=== PATIENT | male | born 1930 | race Caucasian/White ===

== ENCOUNTER → 2017-04-01 | Outpatient (CLI) | payer MEDICARE, BC ==
[~2017-04-01] MED LIST: ALPR0.5T99 PO; ASPI81TA82 PO; DUONI NEB; GLIP5 PO; IRBE1TAB37 PO; MIRA33502 PO; NADO20TA PO; NEBUMIS6 INH; OMEP20CA5 PO; PROC60TA PO; ROSU40 PO
[2017-04-01 14:26] LABS: MEAN CORPUSCULAR HGB CONC 36.2 % (32.0-36.0)
[2017-04-01 15:47] LABS: AUTOMATED NEUTROPHIL # 8.5 TH/MM3 (1.8-7.7); BASOPHIL % 0.3 % (0.0-2.0); EOSINOPHIL # 0.1 TH/MM3 (0-0.4); EOSINOPHIL % 0.5 % (0.0-4.0); HEMATOCRIT 31.3 % (39.0-51.0); LYMPH % 8.9 % (9.0-44.0); LYMPHOCYTE # 0.9 TH/MM3 (1.0-4.8); MEAN CELL VOLUME 87.4 FL (80.0-100.0); MEAN CORPUSCULAR HEMOGLOBIN 31.7 PG (27.0-34.0); MONO % 8.4 % (0.0-8.0); NEUT % 81.9 % (16.0-70.0); PLATELET COUNT 245 TH/MM3 (150-450); RED BLOOD COUNT 3.58 MIL/MM3 (4.50-5.90); WHITE BLOOD COUNT 10.3 TH/MM3 (4.0-11.0)
[2017-04-01 15:59] LABS: HEMO FLAGS DIFF FINAL
[2017-04-01 16:18] LABS: ALKALINE PHOSPHATASE 105 U/L (45-117); ALT (GPT) 22 U/L (12-78); ANION GAP 11 MEQ/L (5-15); AST (GOT) 25 U/L (15-37); BLOOD UREA NITROGEN 34 MG/DL (7-18); CHLORIDE 90 MEQ/L (98-107); GLOMERULAR FILTRATION RATE 47 ML/MIN (>89); TOTAL BILIRUBIN ADULT 0.4 MG/DL (0.2-1.0)
[2017-04-01 16:23] LABS: SODIUM (NA) 121 MEQ/L (136-145)
== END ==
LOC: PLAB 14:20
PROVIDERS: ATTEND Family Medicine
DX: D64.9 Anemia, unspecified (principal); R53.83 Other fatigue; I10 Essential (primary) hypertension
CPT/HCPCS: 36415; 80053; 85025

== ENCOUNTER → 2017-04-09 | Outpatient (CLI) | payer MEDICARE, BC ==
[2017-04-09 08:35] LABS: POTASSIUM 4.1 MEQ/L (3.5-5.1)
[2017-04-09 08:37] LABS: BICARBONATE 21.9 MEQ/L (21.0-32.0)
== END ==
LOC: PLAB 07:19
PROVIDERS: ATTEND Family Medicine
DX: E78.1 Pure hyperglyceridemia (principal)
CPT/HCPCS: 36415; 80048

== ENCOUNTER → 2017-07-29 | Outpatient (CLI) | payer MEDICARE, BC ==
[2017-07-29 13:12] LABS: AUTOMATED NEUTROPHIL # 5.1 TH/MM3 (1.8-7.7); BASOPHIL % 0.5 % (0.0-2.0); EOSINOPHIL # 0.2 TH/MM3 (0-0.4); EOSINOPHIL % 2.7 % (0.0-4.0); HEMATOCRIT 31.1 % (39.0-51.0); HEMO FLAGS DIFF FINAL; LYMPH % 15.6 % (9.0-44.0); LYMPHOCYTE # 1.1 TH/MM3 (1.0-4.8); MEAN CELL VOLUME 89.8 FL (80.0-100.0); MEAN CORPUSCULAR HEMOGLOBIN 31.4 PG (27.0-34.0); MONO % 7.9 % (0.0-8.0); NEUT % 73.3 % (16.0-70.0); PLATELET COUNT 281 TH/MM3 (150-450); RED BLOOD COUNT 3.47 MIL/MM3 (4.50-5.90); RED CELL DISTRIBUTION WIDTH 13.9 % (11.6-17.2)
[2017-07-29 13:37] LABS: BICARBONATE 24.5 MEQ/L (21.0-32.0); POTASSIUM 4.2 MEQ/L (3.5-5.1)
== END ==
LOC: PLAB 08:28
PROVIDERS: ATTEND Internal Medicine Gastroenterology
DX: K59.00 Constipation, unspecified (principal); D64.9 Anemia, unspecified
CPT/HCPCS: 36415; 80048; 84443; 85025

== ENCOUNTER 2017-08-31 15:54 | Emergency (ER) | payer MEDICARE, BC ==
[~2017-08-31] VITALS: Ht 165.1 cm; Wt 78.7 kg
[2017-08-31 15:56] VITALS: BP 188/88; PULSE 87; RESP 18; TEMP 98.1; O2SAT 96
[2017-08-31] MEDS ORDERED: ROSU5 PO (16:14)
[2017-08-31] MEDS ORDERED: GLIP5TAB8 PO (16:14)
[2017-08-31] MEDS ORDERED: FURO20TA PO (16:14)
[2017-08-31] MEDS ORDERED: IRBE75TA24 PO (16:14)
[2017-08-31] MEDS ORDERED: NADO20TA PO (16:14)
[2017-08-31] MEDS ORDERED: HYDR12.56 PO (16:14)
[2017-08-31] MEDS ORDERED: FINA5TAB2 PO (16:14)
[2017-08-31] MEDS ORDERED: PRIL20TA2 PO (16:14)
[2017-08-31] MEDS ORDERED: ALPR.5 PO (16:14)
[2017-08-31] MEDS ORDERED: NIFE10 PO (16:14)
[2017-08-31] MEDS ORDERED: SPIRCAP INH (16:14)
[2017-08-31] MEDS ORDERED: CEPH-460 PO (16:18)
[2017-08-31] MEDS ORDERED: BACT800T5 PO (16:18)
--- NOTE | 2017-08-31 16:19 | PD ---
HPI Chief Complaint: Skin Problem Time Seen by Provider: 16:11 Travel History International Travel<30 days: No Contact w/Intl Traveler<30days: No Traveled to known affect area: No History of Present Illness HPI 86-year-old male here for evaluation of pain and redness to his right forearm at the site of a previous skin tear. He reports the original injury happened about 3 weeks ago. The area heals on its own. Over the last several days he's noticed increased tenderness and redness at the site. He denies fever or chills. He has no other complaint. Symptom severity is mild. No alleviating factors. PFSH Past Medical History Arthritis: Yes Asthma: No Autoimmune Disease: No Blood Disorders: No Anxiety: Yes Heart Rhythm Problems: No Cancer: Yes (SKIN CA) Cardiovascular Problems: Yes High Cholesterol: Yes Chest Pain: No Congestive Heart Failure: No COPD: Yes ("A DROP OF COPD"PER PATIENT) Cerebrovascular Accident: No Diabetes: Yes Patient Takes Glucophage: Yes Endocrine: Yes Gastrointestinal Disorders: Yes (WIDENING OF ESOPHAGUS -DR COLLAZO) GERD: Yes Genitourinary: No Headaches: No Hepatitis: No Hiatal Hernia: Yes Hypertension: Yes Immune Disorder: No Kidney Stones: No Musculoskeletal: Yes Neurologic: No Psychiatric: No Reproductive: No Respiratory: Yes Migraines: No Myocardial Infarction: No Renal Failure: No Seizures: No Sleep Apnea: Yes (USES CPAP AND HOME O2) Thyroid Disease: No Ulcer: No Tetanus Vaccination: Unknown Influenza Vaccination: Yes Past Surgical History Abdominal Surgery: Yes (HERNIA REPAIR 02/17/2014) AICD: No Appendectomy: No Arteriovenous Shunt: No Cardiac Surgery: Yes (CAGB 2006) Cholecystectomy: Yes (02/17/2014) Ear Surgery: No Endocrine Surgery: No Eye Surgery: No Genitourinary Surgery: No Gynecologic Surgery: No Insulin Pump: No Joint Replacement: No Oral Surgery: No Pacemaker: No Thoracic Surgery: Yes Other Surgery: Yes (LAST GALLBLADDER) Social History Alcohol Use: No (4 SHOTS DAILY (DENIES)) Tobacco Use: No Substance Use: No Allergies-Medications (Allergen,Severity, Reaction): Coded Allergies: iodine (Unverified Allergy, Severe, 08/31/17) levofloxacin (Unverified Allergy, Severe, Anaphylaxis, 08/31/17) potassium iodide (Unverified Allergy, Severe, 08/31/17) povidone-iodine (Unverified Allergy, Severe, 08/31/17) sodium iodide (Unverified Allergy, Severe, 08/31/17) sodium iodide (Unverified Allergy, Severe, 08/31/17) Reported Meds & Prescriptions Reported Meds & Active Scripts Active Keflex (Cephalexin) 500 Mg Capsule 500 Mg PO Q6H 10 Days Bactrim DS (Sulfamethoxazole-Trimethoprim) 800-160 Mg Tab 1 Tab PO BID Reported Xanax (Alprazolam) 0.5 Mg Tab 0.5 Mg PO Q8H PRN Furosemide 20 Mg Tab 20 Mg PO THREE TIMES WEEK Spiriva Handihaler (Tiotropium Inh) 18 Mcg Cap 18 Mcg INH DAILY 1 capsule = 18 mcg Crestor (Rosuvastatin Calcium) 5 Mg Tab 5 Mg PO DAILY Avapro (Irbesartan) 75 Mg Tab 75 Mg PO BID Glipizide 5 Mg Tab 5 Mg PO DAILY Take 30 minutes before a meal Nadolol 20 Mg Tab 20 Mg PO DAILY Finasteride 5 Mg Tab 5 Mg PO DAILY Do not crush. Hydrochlorothiazide 12.5 Mg Tab 12.5 Mg PO DAILY Procardia (Nifedipine) 10 Mg Cap 60 Mg PO DAILY Prilosec (Omeprazole Magnesium) 20 Mg Tab 1 Tab PO DAILY Review of Systems Except as stated in HPI: all other systems reviewed are Neg General / Constitutional: No: Fever Eyes: No: Visual changes HENT: No: Headaches Cardiovascular: No: Chest Pain or Discomfort Respiratory: No: Shortness of Breath Gastrointestinal: No: Abdominal Pain Genitourinary: No: Dysuria Physical Exam Narrative GENERAL: Alert well-appearing male in no acute distress SKIN: Focused skin assessment warm/dry. 5 x 4 cm area of mild erythema to the forearm at the site of a well-healed skin tear. No induration, fluctuance, or open sores. HEAD: Atraumatic. Normocephalic. ENT: No nasal bleeding or discharge. Mucous membranes pink and moist. NECK: Trachea midline. No JVD. CARDIOVASCULAR: Regular rate and rhythm. No murmur appreciated. RESPIRATORY: No accessory muscle use. Clear to auscultation. Breath sounds equal bilaterally. GASTROINTESTINAL: Abdomen soft, non-tender, nondistended. Hepatic and splenic margins not palpable. MUSCULOSKELETAL: No obvious deformities. No clubbing. No cyanosis. No edema. NEUROLOGICAL: Awake and alert. No obvious cranial nerve deficits. Motor grossly within normal limits. Normal speech. PSYCHIATRIC: Appropriate mood and affect; insight and judgment normal. Data Data Last Documented VS Vital Signs Date Time Temp Pulse Resp B/P (MAP) Pulse Ox O2 Delivery O2 Flow Rate FiO2 08/31/17 15:56 98.1 87 18 188/88 (121) 96 MDM Medical Decision Making Medical Screen Exam Complete: Yes Emergency Medical Condition: Yes Differential Diagnosis CELLULITIS, ABSCESS, LYMPHANGITIS Narrative Course 86-year-old male here for evaluation of pain and redness to his right forearm at the site of a previous skin tear. He reports the original injury happened about 3 weeks ago. The area heals on its own. Over the last several days he's noticed increased tenderness and redness at the site. On exam he has very mild case of cellulitis to the right forearm. He denies fever or chills. His vital signs are stable. He is nontoxic. He will be treated with oral antibiotics and instructed to follow up with his PCP. He agrees to this plan Diagnosis Primary Impression: Cellulitis Qualified Codes: L03.113 - Cellulitis of right upper limb Referrals: Primary Care Physician Additional Instructions: Take the antibiotics as prescribed. Take Tylenol as needed for pain. Follow-up with her doctor. Return to the emergency department if he developed new or worsening symptoms Scripts Cephalexin (Keflex) 500 Mg Capsule 500 MG PO Q6H for Infection for 10 Days, #40 CAP 0 Refills Prov: Alondra Reyes 08/31/17 Sulfamethoxazole-Trimethoprim (Bactrim DS) 800-160 Mg Tab 1 TAB PO BID for Infection, #20 TAB 0 Refills Prov: Alondra Reyes 08/31/17 Disposition: 01 DISCHARGE HOME Condition: Stable Alondra Reyes Aug 31, 2017 16:19
== END 2017-08-31 16:33 | disposition home or self-care (01) ==
LOC: PHEFT 15:54
DX: L03.113 Cellulitis of right upper limb (principal); E11.9 Type 2 diabetes mellitus without complications; I10 Essential (primary) hypertension; E78.00 Pure hypercholesterolemia, unspecified; G47.30 Sleep apnea, unspecified; Z79.84 Long term (current) use of oral hypoglycemic drugs; Z87.39 Personal history of other diseases of the musculoskeletal system and connective tissue; Z86.59 Personal history of other mental and behavioral disorders; Z85.828 Personal history of other malignant neoplasm of skin; Z86.79 Personal history of other diseases of the circulatory system; Z87.09 Personal history of other diseases of the respiratory system; Z87.19 Personal history of other diseases of the digestive system
CPT/HCPCS: 99284

== ENCOUNTER → 2017-09-08 | Outpatient (CLI) | payer MEDICARE, BC ==
[~2017-09-08] MED LIST changes: +ALPR.5 PO; -ALPR0.5T99 PO; -ASPI81TA82 PO; +BACT800T5 PO; +CEPH-460 PO; -DUONI NEB; +FINA5TAB2 PO; +FURO20TA PO; -GLIP5 PO; +GLIP5TAB8 PO; +HYDR12.56 PO; -IRBE1TAB37 PO; +IRBE75TA24 PO; -MIRA33502 PO; -NEBUMIS6 INH; +NIFE10 PO; -OMEP20CA5 PO; +PRIL20TA2 PO; -PROC60TA PO; -ROSU40 PO; +ROSU5 PO; +SPIRCAP INH
[2017-09-08 13:34] LABS: AUTOMATED NEUTROPHIL # 5.1 TH/MM3 (1.8-7.7); BASOPHIL % 0.7 % (0.0-2.0); EOSINOPHIL # 0.1 TH/MM3 (0-0.4); EOSINOPHIL % 1.7 % (0.0-4.0); HEMATOCRIT 31.3 % (39.0-51.0); HEMO FLAGS DIFF FINAL; LYMPH % 16.4 % (9.0-44.0); LYMPHOCYTE # 1.1 TH/MM3 (1.0-4.8); MEAN CELL VOLUME 90.9 FL (80.0-100.0); MEAN CORPUSCULAR HEMOGLOBIN 30.7 PG (27.0-34.0); MEAN CORPUSCULAR HGB CONC 33.8 % (32.0-36.0); MONO % 7.5 % (0.0-8.0); NEUT % 73.7 % (16.0-70.0); PLATELET COUNT 264 TH/MM3 (150-450); RED BLOOD COUNT 3.44 MIL/MM3 (4.50-5.90); RED CELL DISTRIBUTION WIDTH 13.6 % (11.6-17.2)
[2017-09-08 15:28] LABS: ALKALINE PHOSPHATASE 90 U/L (45-117); ALT (GPT) 25 U/L (12-78); AST (GOT) 19 U/L (15-37); BLOOD UREA NITROGEN 33 MG/DL (7-18); GLOMERULAR FILTRATION RATE 35 ML/MIN (>89); GLUCOSE,FASTING 153 MG/DL (74-99); POTASSIUM 4.1 MEQ/L (3.5-5.1); SODIUM (NA) 135 MEQ/L (136-145); TOTAL BILIRUBIN ADULT 0.4 MG/DL (0.2-1.0)
[2017-09-08 15:29] LABS: ANION GAP 9 MEQ/L (5-15); BICARBONATE 23.2 MEQ/L (21.0-32.0); CHLORIDE 103 MEQ/L (98-107); FREE T4 1.22 NG/DL (0.76-1.46); HDL CHOLESTEROL 38.9 MG/DL (40.0-60.0); LDL CHOLESTEROL 75 MG/DL (0-99)
[2017-09-08 17:25] LABS: HEMOGLOBIN A1a 0.9 %; HEMOGLOBIN A1b 1.9 %; HEMOGLOBIN Ao 82.7 %; HEMOGLOBIN LA1C 2.5 %; HEMOGLOBIN P3 6.2 %
== END ==
LOC: PLAB 08:10
PROVIDERS: ATTEND Family Medicine
DX: E78.5 Hyperlipidemia, unspecified (principal); E11.21 Type 2 diabetes mellitus with diabetic nephropathy; R94.6 Abnormal results of thyroid function studies; D64.9 Anemia, unspecified
CPT/HCPCS: 36415; 80053; 80061; 82607; 82746; 83036; 84439; 84443; 85025

== ENCOUNTER → 2017-12-08 | Outpatient (CLI) | payer MEDICARE, BC ==
[2017-12-08 09:51] LABS: AUTOMATED NEUTROPHIL # 4.4 TH/MM3 (1.8-7.7); BASOPHIL # 0.1 TH/MM3 (0-0.2); BASOPHIL % 0.9 % (0.0-2.0); EOSINOPHIL # 0.3 TH/MM3 (0-0.4); EOSINOPHIL % 4.1 % (0.0-4.0); HEMATOCRIT 26.4 % (39.0-51.0); HEMOGLOBIN 9.5 GM/DL (13.0-17.0); LYMPH % 18.5 % (9.0-44.0); LYMPHOCYTE # 1.2 TH/MM3 (1.0-4.8); MEAN CELL VOLUME 90.9 FL (80.0-100.0); MEAN CORPUSCULAR HEMOGLOBIN 32.7 PG (27.0-34.0); MEAN CORPUSCULAR HGB CONC 35.9 % (32.0-36.0); MEAN PLATELET VOLUME 8.5 FL (7.0-11.0); MONO % 10.5 % (0.0-8.0); MONOCYTE # 0.7 TH/MM3 (0-0.9); PLATELET COUNT 219 TH/MM3 (150-450); RED CELL DISTRIBUTION WIDTH 13.2 % (11.6-17.2); WHITE BLOOD COUNT 6.7 TH/MM3 (4.0-11.0)
[2017-12-08 10:15] LABS: ALBUMIN 3.1 GM/DL (3.4-5.0); ALT (GPT) 19 U/L (12-78); AST (GOT) 18 U/L (15-37); BICARBONATE 22.4 MEQ/L (21.0-32.0); BLOOD UREA NITROGEN 43 MG/DL (7-18); CHLORIDE 98 MEQ/L (98-107); CHOLESTEROL 119 MG/DL (120-200); CREATININE 2.12 MG/DL (0.60-1.30); GLOMERULAR FILTRATION RATE 30 ML/MIN (>89); GLUCOSE,FASTING 130 MG/DL (74-99); SODIUM (NA) 131 MEQ/L (136-145)
[2017-12-08 10:40] LABS: ALKALINE PHOSPHATASE 105 U/L (45-117); CHOLESTEROL/ HDL RATIO 3.23 RATIO; FOLATE 10.1 NG/ML (3.1-17.5); FREE T4 1.29 NG/DL (0.76-1.46); HDL CHOLESTEROL 36.8 MG/DL (40.0-60.0); LDL CHOLESTEROL 64 MG/DL (0-99); TOTAL BILIRUBIN ADULT 0.6 MG/DL (0.2-1.0); TOTAL PROTEIN 6.3 GM/DL (6.4-8.2); TRIGLYCERIDES 90 MG/DL (42-150)
[2017-12-08 16:49] LABS: HEMOGLOBIN A1C 6.7 % (4.3-6.0)
== END ==
LOC: PLAB 07:24
PROVIDERS: ATTEND Family Medicine
DX: E78.5 Hyperlipidemia, unspecified (principal); E11.21 Type 2 diabetes mellitus with diabetic nephropathy; R94.6 Abnormal results of thyroid function studies; D64.9 Anemia, unspecified
CPT/HCPCS: 36415; 80053; 80061; 82607; 82746; 83036; 84439; 84443; 85025

== ENCOUNTER → 2018-01-07 | Outpatient (CLI) | payer MEDICARE, BC ==
[2018-01-07 13:58] LABS: HEMATOCRIT 30.4 % (39.0-51.0); HEMOGLOBIN 10.6 GM/DL (13.0-17.0); MEAN CELL VOLUME 92.1 FL (80.0-100.0); MEAN CORPUSCULAR HEMOGLOBIN 32.2 PG (27.0-34.0); MEAN PLATELET VOLUME 8.8 FL (7.0-11.0); PLATELET COUNT 240 TH/MM3 (150-450); WHITE BLOOD COUNT 7.9 TH/MM3 (4.0-11.0)
[2018-01-07 14:22] LABS: BICARBONATE 21.9 MEQ/L (21.0-32.0); BLOOD UREA NITROGEN 47 MG/DL (7-18); CHLORIDE 103 MEQ/L (98-107); CREATININE 2.22 MG/DL (0.60-1.30); GLOMERULAR FILTRATION RATE 28 ML/MIN (>89); GLUCOSE,RANDOM 144 MG/DL (74-106); SODIUM (NA) 137 MEQ/L (136-145)
[2018-01-07 14:23] LABS: % SATURATION IRON PROFILE 22.7 % (20-50); IRON (FE) 75 MCG/DL (65-175); TOTAL IRON BINDING CAPACITY 330 MCG/DL (250-450)
== END ==
LOC: PLAB 10:38
PROVIDERS: ATTEND Family Medicine
DX: N18.9 Chronic kidney disease, unspecified (principal)
CPT/HCPCS: 36415; 80048; 82668; 83540; 83550; 85027

== ENCOUNTER → 2018-02-26 | Outpatient (CLI) | payer MEDICARE, BC ==
[~2018-02-26] MED LIST changes: +FURO40TA PO; +HYDR-3799 PO; +NADO1TAB17 PO; +TERA5CAP3 PO
[2018-02-26 14:47] LABS: AUTOMATED NEUTROPHIL # 6.8 TH/MM3 (1.8-7.7); BASOPHIL % 0.4 % (0.0-2.0); EOSINOPHIL # 0.1 TH/MM3 (0-0.4); EOSINOPHIL % 1.3 % (0.0-4.0); HEMATOCRIT 27.9 % (39.0-51.0); HEMOGLOBIN 9.8 GM/DL (13.0-17.0); LYMPH % 8.6 % (9.0-44.0); LYMPHOCYTE # 0.7 TH/MM3 (1.0-4.8); MEAN CELL VOLUME 91.2 FL (80.0-100.0); MEAN CORPUSCULAR HEMOGLOBIN 32.1 PG (27.0-34.0); MEAN CORPUSCULAR HGB CONC 35.2 % (32.0-36.0); MONO % 8.9 % (0.0-8.0); MONOCYTE # 0.7 TH/MM3 (0-0.9); NEUT % 80.8 % (16.0-70.0); PLATELET COUNT 399 TH/MM3 (150-450); RED BLOOD COUNT 3.05 MIL/MM3 (4.50-5.90); RED CELL DISTRIBUTION WIDTH 13.4 % (11.6-17.2); WHITE BLOOD COUNT 8.4 TH/MM3 (4.0-11.0)
[2018-02-26 14:48] LABS: HEMOGLOBIN A1C 7.3 % (4.3-6.0)
[2018-02-26 14:54] LABS: ALBUMIN 2.6 GM/DL (3.4-5.0); AST (GOT) 13 U/L (15-37); BICARBONATE 20.1 MEQ/L (21.0-32.0); BLOOD UREA NITROGEN 43 MG/DL (7-18); CALCIUM 8.7 MG/DL (8.5-10.1); CHLORIDE 104 MEQ/L (98-107); GLOMERULAR FILTRATION RATE 25 ML/MIN (>89); GLUCOSE,FASTING 163 MG/DL (74-99); SODIUM (NA) 134 MEQ/L (136-145)
[2018-02-26 14:55] LABS: CHOLESTEROL 107 MG/DL (120-200)
[2018-02-26 15:04] LABS: ALKALINE PHOSPHATASE 91 U/L (45-117); ALT (GPT) 24 U/L (12-78); FREE T4 1.35 NG/DL (0.76-1.46); HDL CHOLESTEROL 34.5 MG/DL (40.0-60.0); LDL CHOLESTEROL 51 MG/DL (0-99); TOTAL BILIRUBIN ADULT 0.3 MG/DL (0.2-1.0); TOTAL PROTEIN 6.7 GM/DL (6.4-8.2); TRIGLYCERIDES 108 MG/DL (42-150)
== END ==
LOC: PLAB 08:54
PROVIDERS: ATTEND Family Medicine
DX: E78.5 Hyperlipidemia, unspecified (principal); E11.40 Type 2 diabetes mellitus with diabetic neuropathy, unspecified; R94.6 Abnormal results of thyroid function studies
CPT/HCPCS: 36415; 80053; 80061; 83036; 84439; 84443; 85025

== ENCOUNTER 2018-02-28 12:52 | Observation (INO) | payer MEDICARE, BC ==
[~2018-02-28] VITALS: Ht 177.8 cm; Wt 75.0 kg
[2018-02-28] VITALS (13 sets, daily range): BP systolic 164–196; BP diastolic 68–87; PULSE 57–78; RESP 16–20; TEMP 98–98.1; O2SAT 96–98
[~2018-02-28 12:52] MED LIST changes: -FURO40TA PO; -HYDR-3799 PO; -NADO1TAB17 PO; -TERA5CAP3 PO
[2018-02-28] MEDS ORDERED: SODIUM CHLORIDE 0.9% FLUSH 10 ML FLUSH IVF PRN (13:15)
[2018-02-28] MEDS ORDERED: cloNIDine HCL 0.2 MG TAB PO ONE (13:15)
--- NOTE | 2018-02-28 13:19 | PD ---
HPI Chief Complaint: Chest Pain Time Seen by Provider: 13:06 Travel History International Travel<30 days: No Contact w/Intl Traveler<30days: No History of Present Illness HPI Patient presents with complaints of intermittent chest heaviness over the last 4 days. Denies chest pain. Denies any symptoms now. 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 Reports that these episodes do not last too long and are normally relieved with his nebulizer. Reports shortness of breath and fatigue on exertion. Denies diaphoresis or radiation left arm. Denies tobacco use. Denies family history of cardiac disease. He did take his medications this morning. Followed by Dr. Shay who did an EKG 1 week ago that was normal. He is scheduled for a stress test in the near future. Followed by Dr. May as well and has an appointment with her on Friday. Patient denies CHF however he has been prescribed Lasix 3 times per week by his wagon person. States his primary care provider is encouraged to stop this medication. PFSH Past Medical History Arthritis: Yes Asthma: No Autoimmune Disease: No Blood Disorders: No Anxiety: Yes Heart Rhythm Problems: No Cancer: Yes (SKIN CA) Cardiovascular Problems: Yes High Cholesterol: Yes Chest Pain: No Congestive Heart Failure: No COPD: Yes ("A DROP OF COPD"PER PATIENT) Cerebrovascular Accident: No Diabetes: Yes Endocrine: Yes Gastrointestinal Disorders: Yes (WIDENING OF ESOPHAGUS -DR COLLAZO) GERD: Yes Genitourinary: No Headaches: No Hepatitis: No Hiatal Hernia: Yes Hypertension: Yes Immune Disorder: No Kidney Stones: No Musculoskeletal: Yes Neurologic: No Psychiatric: No Reproductive: No Respiratory: Yes Migraines: No Myocardial Infarction: No Renal Failure: No Seizures: No Sleep Apnea: Yes (USES CPAP AND HOME O2) Thyroid Disease: No Ulcer: No Past Surgical History Abdominal Surgery: Yes (HERNIA REPAIR 02/17/2014) AICD: No Appendectomy: No Arteriovenous Shunt: No Cardiac Surgery: Yes (CAGB 2006) Cholecystectomy: Yes (02/17/2014) Ear Surgery: No Endocrine Surgery: No Eye Surgery: No Genitourinary Surgery: No Gynecologic Surgery: No Insulin Pump: No Joint Replacement: No Oral Surgery: No Pacemaker: No Thoracic Surgery: Yes Other Surgery: Yes (LAST GALLBLADDER) Social History Alcohol Use: No (4 SHOTS DAILY (DENIES)) Tobacco Use: No Substance Use: No Allergies-Medications (Allergen,Severity, Reaction): Coded Allergies: iodine (Unverified Allergy, Severe, 02/28/18) levofloxacin (Unverified Allergy, Severe, Anaphylaxis, 02/28/18) potassium iodide (Unverified Allergy, Severe, 02/28/18) povidone-iodine (Unverified Allergy, Severe, 02/28/18) sodium iodide (Unverified Allergy, Severe, 02/28/18) sodium iodide (Unverified Allergy, Severe, 02/28/18) Reported Meds & Prescriptions Reported Meds & Active Scripts Active Reported Xanax (Alprazolam) 0.5 Mg Tab 0.5 Mg PO Q8H PRN Furosemide 20 Mg Tab 20 Mg PO THREE TIMES WEEK Spiriva Handihaler (Tiotropium Inh) 18 Mcg Cap 18 Mcg INH DAILY 1 capsule = 18 mcg Crestor (Rosuvastatin Calcium) 5 Mg Tab 5 Mg PO DAILY Avapro (Irbesartan) 75 Mg Tab 75 Mg PO BID Glipizide 5 Mg Tab 5 Mg PO DAILY Take 30 minutes before a meal Nadolol 20 Mg Tab 20 Mg PO DAILY Finasteride 5 Mg Tab 5 Mg PO DAILY Do not crush. Hydrochlorothiazide 12.5 Mg Tab 12.5 Mg PO DAILY Procardia (Nifedipine) 10 Mg Cap 90 Mg PO DAILY Prilosec (Omeprazole Magnesium) 20 Mg Tab 1 Tab PO DAILY Review of Systems General / Constitutional: No: Fever Eyes: No: Visual changes HENT: No: Headaches Cardiovascular: Positive: Chest Pain or Discomfort Respiratory: Positive: Shortness of Breath Gastrointestinal: No: Abdominal Pain Genitourinary: No: Dysuria Musculoskeletal: No: Pain Skin: No Rash Neurologic: No: Weakness Psychiatric: No: Depression Endocrine: No: Polydipsia Hematologic/Lymphatic: No: Easy Bruising Physical Exam Narrative GENERAL: Well-nourished, well-developed patient. Alert oriented, chest pain- free now SKIN: Focused skin assessment warm/dry. HEAD: Normocephalic. EYES: No scleral icterus. No injection or drainage. In the right eye. NECK: Supple, trachea midline. No JVD or lymphadenopathy. CARDIOVASCULAR: Regular rate and rhythm without murmurs, gallops, or rubs. Sternal scar noted RESPIRATORY: Diminished breath sounds equal bilaterally. No accessory muscle use. GASTROINTESTINAL: Abdomen soft, non-tender, nondistended. MUSCULOSKELETAL: No cyanosis, or edema. BACK: Nontender without obvious deformity. No CVA tenderness. Data Data Last Documented VS Vital Signs Date Time Temp Pulse Resp B/P (MAP) Pulse Ox O2 Delivery O2 Flow Rate FiO2 02/28/18 15:39 60 16 179/77 (111) 97 Room Air 02/28/18 13:04 98.1 Orders Orders Electrocardiogram (02/28/18 13:06) Ckmb (Isoenzyme) Profile (02/28/18 13:06) Complete Blood Count With Diff (02/28/18 13:06) Comprehensive Metabolic Panel (02/28/18 13:06) Magnesium (Mg) (02/28/18 13:06) Prothrombin Time / Inr (Pt) (02/28/18 13:06) Act Partial Throm Time (Ptt) (02/28/18 13:06) Troponin I (02/28/18 13:06) Chest, Single Ap (02/28/18 13:06) Ecg Monitoring (02/28/18 13:06) Bilateral Bp Monitoring (02/28/18 13:06) Iv Access Insert/Monitor (02/28/18 13:06) Oximetry (02/28/18 13:06) Oxygen Administration (02/28/18 13:06) Sodium Chloride 0.9% Flush (Ns Flush) (02/28/18 13:15) Clonidine (Catapres) (02/28/18 13:15) B-Type Natriuretic Peptide (02/28/18 14:43) Alprazolam (Xanax) (02/28/18 16:45) Finasteride (Proscar) (03/01/18 09:00) Nadolol (Corgard) (03/01/18 09:00) Nifedipine (Procardia) (03/01/18 09:00) Tiotropium Inh (Spiriva Inh) (03/01/18 09:00) (Nf) Irbesartan (Avapro) (02/28/18 21:00) (Nf) Omeprazole Magnesium (Prilosec) (03/01/18 09:00) (Nf) Rosuvastatin (Crestor) (03/01/18 09:00) Consult Cardiology (02/28/18 ) Insulin Aspart Supplemtl Scale (Novolog (02/28/18 17:00) Bedside Glucose SEEMA.CSUGAR (02/28/18 16:43) Admit Order (Ed Use Only) (02/28/18 ) Vital Signs (Adult) Q4H (02/28/18 16:42) Diet 1999 Ada Cons Carb (02/28/18 Dinner) Activity Oob With Assistance (02/28/18 16:42) Notify Dr: Other (02/28/18 16:42) Furosemide Inj (Lasix Inj) (02/28/18 16:45) Labs Laboratory Tests Test 02/28/18 13:30 White Blood Count 8.4 TH/MM3 Red Blood Count 2.93 MIL/MM3 Hemoglobin 8.9 GM/DL Hematocrit 27.0 % Mean Corpuscular Volume 92.3 FL Mean Corpuscular Hemoglobin 30.6 PG Mean Corpuscular Hemoglobin Concent 33.1 % Red Cell Distribution Width 12.5 % Platelet Count 395 TH/MM3 Mean Platelet Volume 7.7 FL Neutrophils (%) (Auto) 83.6 % Lymphocytes (%) (Auto) 8.0 % Monocytes (%) (Auto) 7.0 % Eosinophils (%) (Auto) 1.1 % Basophils (%) (Auto) 0.3 % Neutrophils # (Auto) 7.0 TH/MM3 Lymphocytes # (Auto) 0.7 TH/MM3 Monocytes # (Auto) 0.6 TH/MM3 Eosinophils # (Auto) 0.1 TH/MM3 Basophils # (Auto) 0.0 TH/MM3 CBC Comment DIFF FINAL Differential Comment Prothrombin Time 10.2 SEC Prothromb Time International Ratio 1.0 RATIO Activated Partial Thromboplast Time 29.5 SEC Blood Urea Nitrogen 42 MG/DL Creatinine 2.50 MG/DL Random Glucose 325 MG/DL Total Protein 6.7 GM/DL Albumin 2.6 GM/DL Calcium Level 8.7 MG/DL Magnesium Level 1.9 MG/DL Alkaline Phosphatase 105 U/L Aspartate Amino Transf (AST/SGOT) 16 U/L Alanine Aminotransferase (ALT/SGPT) 22 U/L Total Bilirubin 0.3 MG/DL Sodium Level 131 MEQ/L Potassium Level 5.1 MEQ/L Chloride Level 101 MEQ/L Carbon Dioxide Level 20.3 MEQ/L Anion Gap 10 MEQ/L Estimat Glomerular Filtration Rate 25 ML/MIN Total Creatine Kinase 50 U/L Troponin I LESS THAN 0.02 NG/ML B-Type Natriuretic Peptide 475 PG/ML MDM Medical Decision Making Medical Screen Exam Complete: Yes Emergency Medical Condition: Yes Differential Diagnosis Acute coronary syndrome, COPD exacerbation, normal deconditioning Narrative Course Assessment and plan discussed with patient at bedside. EKG sinus rhythm first degree block rate of 77. Blood pressure improved with clonidine. CBC reveals slightly worsening anemia. Hemoccult negative. Renal insufficiency is stable. BNP mildly elevated. Last 72 hours Impressions Chest X-Ray 02/28/18 1306 Signed Impressions: Service Date/Time: Friday, February 28, 2018 13:19 - CONCLUSION: Abnormal perihilar and lower lung zone interstitial opacities in a pattern suggestive of pulmonary edema. Antwon Ferguson MD Physician Communication Physician Communication Spoke with Dr. Loyola who is in agreement will admit for further evaluation and possible cardiology consult Diagnosis Primary Impression: CHF exacerbation Qualified Codes: I50.9 - Heart failure, unspecified Additional Impressions: Anemia Qualified Codes: N18.4 - Chronic kidney disease, stage 4 (severe); D63.1 - Anemia in chronic kidney disease Renal insufficiency COPD (chronic obstructive pulmonary disease) Qualified Codes: J44.9 - Chronic obstructive pulmonary disease, unspecified Hypertensive urgency Eric Paez MD February 28, 2018 13:19
--- NOTE | 2018-02-28 13:33 | RADRPT ---
EXAM DATE/TIME: 02/28/2018 13:19 [facility] COMPARISON: CHEST SINGLE AP, September 08, 2015, 14:07. INDICATIONS : Short of breath, chest pressure MEDICAL HISTORY : Chronic obstructive pulmonary disease. SURGICAL HISTORY : CABG. ENCOUNTER: Initial ACUITY: 4 - 6 days PAIN SCORE: 5/10 LOCATION: Bilateral chest FINDINGS: Portable AP view of the chest demonstrates a normal-sized cardiac silhouette with calcification of th e aorta. Median sternotomy wires are present. Lungs are underinflated with perihilar and lower lung z one interstitial opacities bilaterally. No definite pleural effusion is seen. No pneumothorax is iden tified. Bones demonstrate no acute abnormality. CONCLUSION: Abnormal perihilar and lower lung zone interstitial opacities in a pattern suggestive of pulmonary ed brinda. Antwon Ferguson MD on February 28, 2018 at 13:31 Board Certified Radiologist. This report was verified electronically.
[2018-02-28 14:03] LABS: CHLORIDE 101 MEQ/L (98-107); SODIUM (NA) 131 MEQ/L (136-145)
[2018-02-28 14:07] LABS: ALBUMIN 2.6 GM/DL (3.4-5.0); BICARBONATE 20.3 MEQ/L (21.0-32.0); BLOOD UREA NITROGEN 42 MG/DL (7-18); CALCIUM 8.7 MG/DL (8.5-10.1); GLUCOSE,RANDOM 325 MG/DL (74-106); MAGNESIUM 1.9 MG/DL (1.5-2.5); PROTHROMBIN TIME - PATIENT 10.2 SEC (9.8-11.6)
[2018-02-28 14:09] LABS: BASOPHIL % 0.3 % (0.0-2.0); EOSINOPHIL # 0.1 TH/MM3 (0-0.4); EOSINOPHIL % 1.1 % (0.0-4.0); HEMOGLOBIN 8.9 GM/DL (13.0-17.0); LYMPHOCYTE # 0.7 TH/MM3 (1.0-4.8); MEAN CELL VOLUME 92.3 FL (80.0-100.0); MEAN CORPUSCULAR HEMOGLOBIN 30.6 PG (27.0-34.0); MEAN CORPUSCULAR HGB CONC 33.1 % (32.0-36.0); MEAN PLATELET VOLUME 7.7 FL (7.0-11.0); MONOCYTE # 0.6 TH/MM3 (0-0.9); NEUT % 83.6 % (16.0-70.0); PLATELET COUNT 395 TH/MM3 (150-450); RED BLOOD COUNT 2.93 MIL/MM3 (4.50-5.90); RED CELL DISTRIBUTION WIDTH 12.5 % (11.6-17.2); WHITE BLOOD COUNT 8.4 TH/MM3 (4.0-11.0)
[2018-02-28 14:10] LABS: ALT (GPT) 22 U/L (12-78); AST (GOT) 16 U/L (15-37); GLOMERULAR FILTRATION RATE 25 ML/MIN (>89)
[2018-02-28 14:12] LABS: TOTAL BILIRUBIN ADULT 0.3 MG/DL (0.2-1.0); TOTAL PROTEIN 6.7 GM/DL (6.4-8.2)
[2018-02-28 14:13] LABS: ALKALINE PHOSPHATASE 105 U/L (45-117)
[2018-02-28 14:15] LABS: TROPONIN I LESS THAN 0.02 NG/ML (0.02-0.05)
[2018-02-28] MEDS ORDERED: ACETAMINOPHEN 325 MG TAB PO PRN ×2 (16:45)
[2018-02-28] MEDS ORDERED: NALOXONE HCL 0.4 MG/ML AMP IV PUSH PRN (16:45)
[2018-02-28] MEDS ORDERED: FUROSEMIDE 20 MG/2 ML VIAL IV PUSH ONE (16:45)
[2018-02-28] MEDS ORDERED: SODIUM CHLORIDE 0.9% FLUSH 10 ML FLUSH IV FLUSH PRN (16:45)
[2018-02-28] MEDS: HEPARIN SODIUM - SQ 10,000 UNITS/ML VIAL SQ SCH ×2 (17:06→22:19)
--- NOTE | 2018-02-28 17:06 | HHI.HP ---
[facility] Service [facility] Primary Care Physician Carmen May MD Admission Diagnosis CHF exacerbation Diagnoses: Chief Complaint: Weakness, chest pressure Travel History International Travel<30 Days: No Contact w/Intl Traveler <30 Da: No Traveled to Known Affected Are: No History of Present Illness The patient is an 87-year-old male with a past medical history of CAD status post CABG and diabetes who is presenting to the hospital with weakness, shortness of breath and chest pressure. The patient says that for the past week or so he has been feeling weak. He says normally he plays 18 holes of golf but he has not been able to do so because he has been short of breath and tired, as well as weak. He says he feels like he is having a hard time getting air in. He does not have chest pain but does describe chest pressure on the left side. He says he has not been taking his diuretics as he is supposed to because his primary tells him that his kidneys have been acting up. He also says he has not been taking his glipizide when he is supposed to because his blood sugar tends to drop low when he plays golf. He follows with Dr. Raymond and was scheduled to have a stress test on March 25. The patient endorses swelling in the lower extremities. He is tolerating a diet. Discussed with nursing. Review of Systems Except as stated in HPI: all other systems reviewed are Neg Past Family Social History Past Medical History Hypertension Hyperlipidemia Coronary artery disease COPD Type 2 diabetes mellitus Osteoarthritis Sleep apnea GERD Basal cell carcinoma of the nose Macular degeneration Past Surgical History CABG 5 vessels, 2006 Hernia repair 02/17/14 Cholecystectomy 02/17/14 Basal cell carcinoma removed from the nose Allergies: Coded Allergies: iodine (Unverified Allergy, Severe, 02/28/18) levofloxacin (Unverified Allergy, Severe, Anaphylaxis, 02/28/18) potassium iodide (Unverified Allergy, Severe, 02/28/18) povidone-iodine (Unverified Allergy, Severe, 02/28/18) sodium iodide (Unverified Allergy, Severe, 02/28/18) sodium iodide (Unverified Allergy, Severe, 02/28/18) Family History CAD Social History The pt does not drink or smoke. Physical Exam Vital Signs Vital Signs Date Time Temp Pulse Resp B/P (MAP) Pulse Ox O2 Delivery O2 Flow Rate FiO2 02/28/18 15:39 60 16 179/77 (111) 97 Room Air 02/28/18 14:45 60 18 188/68 (108) 97 Room Air 02/28/18 14:41 98 Room Air 02/28/18 14:41 18 98 Room Air 02/28/18 13:46 74 20 194/77 (116) 96 Room Air 02/28/18 13:04 98.1 78 18 196/87 (123) 97 Physical Exam GENERAL: Well-nourished, well-developed patient. SKIN: Focused skin assessment warm/dry. HEAD: Normocephalic. EYES: No scleral icterus. No injection or drainage. In the right eye. NECK: Supple, trachea midline. No JVD or lymphadenopathy. CARDIOVASCULAR: Regular rate and rhythm without murmurs, gallops, or rubs. Sternal scar noted RESPIRATORY: Diminished breath sounds equal bilaterally. Crackles at the bases. No accessory muscle use. GASTROINTESTINAL: Abdomen soft, non-tender, nondistended. MUSCULOSKELETAL: No cyanosis. 1-2+ LE edema. BACK: Nontender without obvious deformity. No CVA tenderness. Laboratory Laboratory Tests Test 02/28/18 13:30 White Blood Count 8.4 Red Blood Count 2.93 Hemoglobin 8.9 Hematocrit 27.0 Mean Corpuscular Volume 92.3 Mean Corpuscular Hemoglobin 30.6 Mean Corpuscular Hemoglobin Concent 33.1 Red Cell Distribution Width 12.5 Platelet Count 395 Mean Platelet Volume 7.7 Neutrophils (%) (Auto) 83.6 Lymphocytes (%) (Auto) 8.0 Monocytes (%) (Auto) 7.0 Eosinophils (%) (Auto) 1.1 Basophils (%) (Auto) 0.3 Neutrophils # (Auto) 7.0 Lymphocytes # (Auto) 0.7 Monocytes # (Auto) 0.6 Eosinophils # (Auto) 0.1 Basophils # (Auto) 0.0 CBC Comment DIFF FINAL Differential Comment Prothrombin Time 10.2 Prothromb Time International Ratio 1.0 Activated Partial Thromboplast Time 29.5 Blood Urea Nitrogen 42 Creatinine 2.50 Random Glucose 325 Total Protein 6.7 Albumin 2.6 Calcium Level 8.7 Magnesium Level 1.9 Alkaline Phosphatase 105 Aspartate Amino Transf (AST/SGOT) 16 Alanine Aminotransferase (ALT/SGPT) 22 Total Bilirubin 0.3 Sodium Level 131 Potassium Level 5.1 Chloride Level 101 Carbon Dioxide Level 20.3 Anion Gap 10 Estimat Glomerular Filtration Rate 25 Total Creatine Kinase 50 Troponin I LESS THAN 0.02 B-Type Natriuretic Peptide 475 Result Diagram: 02/28/18 1330 02/28/18 1330 Imaging Last Impressions Chest X-Ray 02/28/18 1306 Signed Impressions: Service Date/Time: Wednesday, February 28, 2018 13:19 - CONCLUSION: Abnormal perihilar and lower lung zone interstitial opacities in a pattern suggestive of pulmonary edema. MD Heron Melendez VTE Risk Assessment Heron VTE Risk Assessment: Mod/High Risk (score >= 2) Jasbiri Risk Assessment Model Point Value = 1 Point Value = 2 Point Value = 3 Point Value = 5 Age 41-60 Minor surgery BMI > 25 kg/m2 Swollen legs Varicose veins or History of unexplained or recurrent spontaneous Oral contraceptives or hormone replacement Sepsis (< 1 month) Serious lung disease, including pneumonia (< 1 month) Abnormal pulmonary function Acute myocardial infarction Congestive heart failure (< 1 month) History of inflammatory bowel disease Medical patient at bed rest Age 61-74 Arthroscopic surgery Major open surgery (> 45 min) Laparoscopic surgery (> 45 min) Malignancy Confined to bed (> 72 hours) Immobilizing plaster cast Central venous access Age >= 75 History of VTE Family history of VTE Factor V Leiden Prothrombin [id number] Lupus anticoagulant Anticardiolipin antibodies Elevated serum homocysteine Heparin-induced thrombocytopenia Other congenital or acquired thrombophilia Stroke (< 1 month) Elective arthroplasty Hip, pelvis, or leg fracture Acute spinal cord injury (< 1 month) Prophylaxis Regimen Total Risk Factor Score Risk Level Prophylaxis Regimen 0-1 Low Early ambulation 2 Moderate Order ONE of the following: *Sequential Compression Device (SCD) *Heparin 5000 units SQ BID 3-4 Higher Order ONE of the following medications: *Heparin 5000 units SQ TID *Enoxaparin/Lovenox 40 mg SQ daily (WT < 150 kg, CrCl > 30 mL/min) *Enoxaparin/Lovenox 30 mg SQ daily (WT < 150 kg, CrCl > 10-29 mL/min) *Enoxaparin/Lovenox 30 mg SQ BID (WT < 150 kg, CrCl > 30 mL/min) AND/OR *Sequential Compression Device (SCD) 5 or more Highest Order ONE of the following medications: *Heparin 5000 units SQ TID (Preferred with Epidurals) *Enoxaparin/Lovenox 40 mg SQ daily (WT < 150 kg, CrCl > 30 mL/min) *Enoxaparin/Lovenox 30 mg SQ daily (WT < 150 kg, CrCl > 10-29 mL/min) *Enoxaparin/Lovenox 30 mg SQ BID (WT < 150 kg, CrCl > 30 mL/min) AND *Sequential Compression Device (SCD) Assessment and Plan Assessment and Plan Acute on chronic diastolic heart failure The pt endorses weakness, shortness of breath and chest pressure. BNP is elevated. Last echo demonstrated diastolic dysfunction. Scheduled for a stress test as an outpt. - cardiology consult requested. Cardiology would like the pt to be transferred to the main. - IV Lasix BID. - follow Is and Os. - continue cardiac regimen. - telemetry. - PT. - trend trops and EKGs. Acute on chronic renal disease Creatinine is elevated over baseline. - monitor BMP while diuresing. DM Poorly controlled. - hold home glipizide. - insulin sliding scale. - check an A1c. Anemia Appears to be at baseline. - follow CBC. HTN Blood pressure has been elevated. - resume home regimen. - clonidine as needed. PPx: Heparin Discussed Condition With Pt, nurse, Kenn Elmore DO February 28, 2018 17:06
[2018-02-28] MEDS: INSULIN ASPART SUPPLEMENTAL SCALE SQ SCH ×2 (17:12→20:47)
[2018-02-28] MEDS ORDERED: DEXTROSE 50% IN WATER 50 ML VIAL(D50) IV PUSH PRN (17:15)
[2018-02-28] MEDS ORDERED: GLUCAGON 1 MG/ML VIAL OTHER PRN (17:15)
[2018-02-28] MEDS: ALPRAZolam 0.5 MG TAB PO PRN (18:26)
[2018-02-28] MEDS ORDERED: LABETALOL HCL 100 MG/20 ML VIAL IV PUSH PRN (20:45)
[2018-02-28] MEDS: SODIUM CHLORIDE 0.9% FLUSH 10 ML FLUSH IV FLUSH SCH (20:47)
[2018-02-28] MEDS: DOCUSATE SODIUM 50 MG/SENNA 8.6 MG TAB PO SCH (20:47)
[2018-02-28] MEDS ORDERED: LOSARTAN 25 MG TAB PO SCH (21:00)
[2018-03-01] VITALS (31 sets, daily range): BP systolic 161–200; BP diastolic 74–88; PULSE 53–82; RESP 18–22; TEMP 97–97.8; O2SAT 94–99
[2018-03-01 06:19] LABS: AUTOMATED NEUTROPHIL # 7.8 TH/MM3 (1.8-7.7); BASOPHIL % 0.5 % (0.0-2.0); EOSINOPHIL # 0.1 TH/MM3 (0-0.4); EOSINOPHIL % 1.3 % (0.0-4.0); HEMATOCRIT 28.4 % (39.0-51.0); LYMPH % 8.3 % (9.0-44.0); LYMPHOCYTE # 0.8 TH/MM3 (1.0-4.8); MEAN CELL VOLUME 90.6 FL (80.0-100.0); MEAN CORPUSCULAR HEMOGLOBIN 32.1 PG (27.0-34.0); MEAN CORPUSCULAR HGB CONC 35.4 % (32.0-36.0); MEAN PLATELET VOLUME 7.2 FL (7.0-11.0); MONO % 6.2 % (0.0-8.0); MONOCYTE # 0.6 TH/MM3 (0-0.9); NEUT % 83.7 % (16.0-70.0); PLATELET COUNT 407 TH/MM3 (150-450); RED BLOOD COUNT 3.13 MIL/MM3 (4.50-5.90); RED CELL DISTRIBUTION WIDTH 13.2 % (11.6-17.2); WHITE BLOOD COUNT 9.3 TH/MM3 (4.0-11.0)
[2018-03-01] MEDS: HEPARIN SODIUM - SQ 10,000 UNITS/ML VIAL SQ SCH ×3 (06:25→21:13)
[2018-03-01] MEDS ORDERED: hydrALAZINE HCL 20 MG/ML VIAL IV PUSH ONE (06:45)
[2018-03-01 06:51] LABS: ALBUMIN 2.7 GM/DL (3.4-5.0); ALT (GPT) 22 U/L (12-78); AST (GOT) 15 U/L (15-37); BICARBONATE 20.8 MEQ/L (21.0-32.0); BLOOD UREA NITROGEN 42 MG/DL (7-18); CALCIUM 8.9 MG/DL (8.5-10.1); CHLORIDE 101 MEQ/L (98-107); CREATININE 2.26 MG/DL (0.60-1.30); GLOMERULAR FILTRATION RATE 28 ML/MIN (>89); GLUCOSE,RANDOM 205 MG/DL (74-106); SODIUM (NA) 133 MEQ/L (136-145)
[2018-03-01 06:53] LABS: ALKALINE PHOSPHATASE 96 U/L (45-117); TOTAL BILIRUBIN ADULT 0.3 MG/DL (0.2-1.0); TOTAL PROTEIN 6.8 GM/DL (6.4-8.2)
--- NOTE | 2018-03-01 08:29 | HHI.PR ---
Subjective Remarks The patient is in the chair says that he feels much better today no much shortness of breath no wheezing. Denies having any chest pain, lightheadedness or palpitations. Lower extremity edema improved. No cough fever or chills. No nausea or diaphoresis. No diarrhea constipation. Objective Vitals Vital Signs Date Time Temp Pulse Resp B/P (MAP) Pulse Ox O2 Delivery O2 Flow Rate FiO2 03/01/18 06:11 75 03/01/18 05:00 70 03/01/18 04:00 68 03/01/18 03:52 97.6 71 20 179/84 (115) 94 03/01/18 03:00 53 03/01/18 02:00 72 03/01/18 01:00 58 03/01/18 00:00 56 02/28/18 23:01 98.0 70 20 164/77 (106) 96 02/28/18 23:00 57 02/28/18 22:00 68 02/28/18 21:00 66 02/28/18 20:25 98.1 67 20 167/80 (109) 96 02/28/18 19:25 02/28/18 19:15 68 20 98 02/28/18 19:12 68 20 173/74 (107) 167/69 (101) 02/28/18 18:18 60 18 177/79 (111) 97 Room Air 02/28/18 18:05 97 02/28/18 15:39 60 16 179/77 (111) 97 Room Air 02/28/18 14:45 60 18 188/68 (108) 97 Room Air 02/28/18 14:41 98 Room Air 02/28/18 14:41 18 98 Room Air 02/28/18 13:46 74 20 194/77 (116) 96 Room Air 02/28/18 13:04 98.1 78 18 196/87 (123) 97 I/O 02/28/18 02/28/18 02/28/18 03/01/18 03/01/18 03/01/18 07:00 15:00 23:00 07:00 15:00 23:00 Intake Total 240 ml 830 ml Output Total 1050 ml 1425 ml Balance -810 ml -595 ml Intake Oral 240 ml 830 ml Output Urine Total 1050 ml 1425 ml # Voids 3 Result Diagram: 03/01/18 0550 03/01/18 0550 Imaging Last Impressions Chest X-Ray 02/28/18 1306 Signed Impressions: Service Date/Time: Wednesday, February 28, 2018 13:19 - CONCLUSION: Abnormal perihilar and lower lung zone interstitial opacities in a pattern suggestive of pulmonary edema. Antwon Ferguson MD Objective Remarks GENERAL: Well-nourished, well-developed patient. CARDIOVASCULAR: Regular rate and rhythm without murmurs, gallops, or rubs. Sternal scar noted RESPIRATORY: Diminished breath sounds equal bilaterally. Crackles at the bases. No accessory muscle use. GASTROINTESTINAL: Abdomen soft, non-tender, nondistended. MUSCULOSKELETAL: No cyanosis. 1-2+ LE edema. BACK: Nontender without obvious deformity. No CVA tenderness. A/P Assessment and Plan Acute on chronic diastolic heart failure The pt endorses weakness, shortness of breath and chest pressure. BNP is elevated. Last echo demonstrated diastolic dysfunction. Scheduled for a stress test as an outpt. Cardiology consulted, recommends transfer pt to the main hospital. Seen by Dr Alonso continue diuresis. Dr Roe his cardio will come tomorrw IV Lasix BID. Follow Is and Os. Continue cardiac regimen. Monitor on telemetry. PT. Trend trops and EKGs. Acute on chronic renal disease Creatinine is elevated over baseline. - monitor BMP while diuresing. Hypertension emergency BP of 200/88 . Add hydralazin IV and labetalol IV with paremeters . Monitor closely VS DM2. Poorly controlled. - hold home glipizide. - insulin sliding scale. Accuchecks. - check an A1c. Anemia Appears to be at baseline. Follow CBC. HTN Blood pressure has been elevated. Resume home regimen. Clonidine as needed. PPx: Heparin/ SCD/TEDs Discussed Condition With Patient, nurse, family at bedside DC plan: when improved and cleared by cardio, Dr Roe On IV lasix and also now with HTN emergency on IV BP meds prn Rebeca Meneses MD March 01, 2018 08:29
[2018-03-01] MEDS: INSULIN ASPART SUPPLEMENTAL SCALE SQ SCH ×4 (08:56→21:11)
[2018-03-01] MEDS: PANTOPRAZOLE SOD 20 MG DELAYED RELEASE TAB PO SCH (08:57)
[2018-03-01] MEDS: FINASTERIDE 5 MG TAB PO SCH (08:57)
[2018-03-01] MEDS: NIFEdipine 90 MG SUSTAINED RELEASE TAB PO SCH (08:57)
[2018-03-01] MEDS: LOSARTAN 25 MG TAB PO SCH ×2 (08:57→21:11)
[2018-03-01] MEDS: ATORVASTATIN 10 MG TAB PO SCH (08:57)
[2018-03-01] MEDS: SODIUM CHLORIDE 0.9% FLUSH 10 ML FLUSH IV FLUSH SCH ×2 (08:58→21:13)
[2018-03-01] MEDS: FUROSEMIDE 20 MG/2 ML VIAL IV PUSH SCH ×2 (08:58→17:29)
[2018-03-01] MEDS: DOCUSATE SODIUM 50 MG/SENNA 8.6 MG TAB PO SCH ×2 (08:59→21:00)
--- NOTE | 2018-03-01 08:59 | PD.CARD.PN ---
Subjective Subjective Remarks 87 year old pleasant male with cardiac history of ASHD, CABG, and DM presented to ER with complaints of weakness, SOB and chest pressure. He reports that for the past week he has not been feeling well. He has not been able to play 18 holes of golf like he usually does due to SOB. He reports that PCP advised him to stop taking his diuretics due to worsening renal function. He reports having essentially normal echocardiogram with Dr. Shay in the past year. He also reports that he saw Dr. Shay a little over a week ago and had an EKG and is pending stress test 03/25. Objective Medications Current Medications Medications (Trade) Dose Ordered Sig/Dena Route Start Time Stop Time Status Last Admin (Xanax) 0.5 mg Q8H PRN PO 02/28/18 16:45 02/28/18 18:26 (Proscar) 5 mg DAILY PO 03/01/18 09:00 (Corgard) 20 mg DAILY PO 03/01/18 09:00 (Procardia Xl) 90 mg DAILY PO 03/01/18 09:00 (Spiriva Inh) 18 mcg DAILY INH 03/01/18 09:00 (Protonix) 20 mg DAILY PO 03/01/18 09:00 (Lipitor) 10 mg DAILY PO 03/01/18 09:00 (NovoLOG SUPPLEMENTAL SCALE) 1 ACHS SLIDING SCALE SQ 02/28/18 17:00 02/28/18 20:47 (NS Flush) 2 ml UNSCH PRN IV FLUSH 02/28/18 16:45 (NS Flush) 2 ml BID IV FLUSH 02/28/18 21:00 02/28/18 20:47 (Tylenol) 650 mg Q4H PRN PO 02/28/18 16:45 (Heparin Inj) 5,000 units Q8HR SQ 02/28/18 16:45 03/01/18 06:25 (Tylenol) 650 mg Q6H PRN PO 02/28/18 16:45 (Narcan Inj) 0.4 mg UNSCH PRN IV PUSH 02/28/18 16:45 (Catrina-Colace) 1 tab BID PO 02/28/18 21:00 02/28/18 20:47 (D50w (Vial) Inj) 50 ml UNSCH PRN IV PUSH 02/28/18 17:15 (Glucagon Inj) 1 mg UNSCH PRN OTHER 02/28/18 17:15 (Lasix Inj) 20 mg BID@,18 IV PUSH 03/01/18 09:00 (Albuterol Neb) 1.25 mg Q6HR NEB NEB 03/01/18 10:00 (Cozaar) 50 mg BID PO 03/01/18 09:00 Vital Signs / I&O Vital Signs Date Time Temp Pulse Resp B/P (MAP) Pulse Ox O2 Delivery O2 Flow Rate FiO2 03/01/18 06:11 75 03/01/18 05:00 70 03/01/18 04:00 68 03/01/18 03:52 97.6 71 20 179/84 (115) 94 03/01/18 03:00 53 03/01/18 02:00 72 03/01/18 01:00 58 03/01/18 00:00 56 02/28/18 23:01 98.0 70 20 164/77 (106) 96 02/28/18 23:00 57 02/28/18 22:00 68 02/28/18 21:00 66 02/28/18 20:25 98.1 67 20 167/80 (109) 96 02/28/18 19:25 02/28/18 19:15 68 20 98 02/28/18 19:12 68 20 173/74 (107) 167/69 (101) 02/28/18 18:18 60 18 177/79 (111) 97 Room Air 02/28/18 18:05 97 02/28/18 15:39 60 16 179/77 (111) 97 Room Air 02/28/18 14:45 60 18 188/68 (108) 97 Room Air 02/28/18 14:41 98 Room Air 02/28/18 14:41 18 98 Room Air 02/28/18 13:46 74 20 194/77 (116) 96 Room Air 02/28/18 13:04 98.1 78 18 196/87 (123) 97 I/O 02/28/18 02/28/18 02/28/18 03/01/18 03/01/18 03/01/18 07:00 15:00 23:00 07:00 15:00 23:00 Intake Total 240 ml 830 ml Output Total 1050 ml 1425 ml Balance -810 ml -595 ml Intake Oral 240 ml 830 ml Output Urine Total 1050 ml 1425 ml # Voids 3 Physical Exam GENERAL: Anxious, pleasant, elderly male SKIN: Warm and dry. HEAD: Atraumatic. Normocephalic. EYES: Pupils equal and round. No scleral icterus. No injection or drainage. ENT: No nasal bleeding or discharge. Mucous membranes pink and moist. NECK: Trachea midline. No JVD. CARDIOVASCULAR: Regular rate and rhythm. RESPIRATORY: No accessory muscle use. Clear to auscultation. Breath sounds equal bilaterally. GASTROINTESTINAL: Abdomen soft, non-tender, nondistended. Hepatic and splenic margins not palpable. MUSCULOSKELETAL: BLE 2+ pitting edema NEUROLOGICAL: Awake and alert. No obvious cranial nerve deficits. Motor grossly within normal limits. Five out of 5 muscle strength in the arms and legs. Normal speech. PSYCHIATRIC: Appropriate mood and affect; insight and judgment normal. Laboratory Laboratory Tests Test 02/28/18 13:30 02/28/18 19:05 03/01/18 00:45 03/01/18 05:50 White Blood Count 8.4 TH/MM3 9.3 TH/MM3 Red Blood Count 2.93 MIL/MM3 3.13 MIL/MM3 Hemoglobin 8.9 GM/DL 10.0 GM/DL Hematocrit 27.0 % 28.4 % Mean Corpuscular Volume 92.3 FL 90.6 FL Mean Corpuscular Hemoglobin 30.6 PG 32.1 PG Mean Corpuscular Hemoglobin Concent 33.1 % 35.4 % Red Cell Distribution Width 12.5 % 13.2 % Platelet Count 395 TH/MM3 407 TH/MM3 Mean Platelet Volume 7.7 FL 7.2 FL Neutrophils (%) (Auto) 83.6 % 83.7 % Lymphocytes (%) (Auto) 8.0 % 8.3 % Monocytes (%) (Auto) 7.0 % 6.2 % Eosinophils (%) (Auto) 1.1 % 1.3 % Basophils (%) (Auto) 0.3 % 0.5 % Neutrophils # (Auto) 7.0 TH/MM3 7.8 TH/MM3 Lymphocytes # (Auto) 0.7 TH/MM3 0.8 TH/MM3 Monocytes # (Auto) 0.6 TH/MM3 0.6 TH/MM3 Eosinophils # (Auto) 0.1 TH/MM3 0.1 TH/MM3 Basophils # (Auto) 0.0 TH/MM3 0.0 TH/MM3 CBC Comment DIFF FINAL DIFF FINAL Differential Comment Prothrombin Time 10.2 SEC Prothromb Time International Ratio 1.0 RATIO Activated Partial Thromboplast Time 29.5 SEC Blood Urea Nitrogen 42 MG/DL 42 MG/DL Creatinine 2.50 MG/DL 2.26 MG/DL Random Glucose 325 MG/DL 205 MG/DL Total Protein 6.7 GM/DL 6.8 GM/DL Albumin 2.6 GM/DL 2.7 GM/DL Calcium Level 8.7 MG/DL 8.9 MG/DL Magnesium Level 1.9 MG/DL Alkaline Phosphatase 105 U/L 96 U/L Aspartate Amino Transf (AST/SGOT) 16 U/L 15 U/L Alanine Aminotransferase (ALT/SGPT) 22 U/L 22 U/L Total Bilirubin 0.3 MG/DL 0.3 MG/DL Sodium Level 131 MEQ/L 133 MEQ/L Potassium Level 5.1 MEQ/L 4.5 MEQ/L Chloride Level 101 MEQ/L 101 MEQ/L Carbon Dioxide Level 20.3 MEQ/L 20.8 MEQ/L Anion Gap 10 MEQ/L 11 MEQ/L Estimat Glomerular Filtration Rate 25 ML/MIN 28 ML/MIN Total Creatine Kinase 50 U/L Troponin I LESS THAN 0.02 NG/ML LESS THAN 0.02 NG/ML LESS THAN 0.02 NG/ML B-Type Natriuretic Peptide 475 PG/ML Imaging Last 24 hours Impressions Chest X-Ray 02/28/18 1306 Signed Impressions: Service Date/Time: Wednesday, February 28, 2018 13:19 - CONCLUSION: Abnormal perihilar and lower lung zone interstitial opacities in a pattern suggestive of pulmonary edema. Antwon Ferguson MD Assessment and Plan Assessment and Plan Chest pain CHF Shadesin,January Jammie HINESP March 01, 2018 08:59
[2018-03-01] MEDS ORDERED: NADOLOL 20 MG TAB PO SCH (09:00)
--- NOTE | 2018-03-01 09:06 | PD.CONS ---
HPI Service Cardiology Consult Requested By Dr. Loyola Reason for Consult CP, CHF Primary Care Physician Carmen May MD History of Present Illness 87 year old pleasant male with cardiac history of ASHD, CABG, and DM presented to ER with complaints of weakness, SOB and chest pressure. He reports that for the past week he has not been feeling well. He has not been able to play 18 holes of golf like he usually does due to SOB. He reports that PCP advised him to stop taking his diuretics due to worsening renal function. He reports having essentially normal echocardiogram with Dr. Shay in the past year. He also reports that he saw Dr. Shay a little over a week ago and had an EKG and is pending stress test 03/25. (Ijeoma Rodriguez) Review of Systems Consitutional: COMPLAINS OF: Fatigue Eyes: DENIES: Amaurosis Fugax, Change in vision HEENT: DENIES: Lightheadedness, Change in hearing Respiratory: COMPLAINS OF: Shortness of breath Cardiovascular: DENIES: See HPI, Chest pain, Palpitations, Syncope, Tachycardia Gastrointestinal: DENIES: Nausea, Vomiting, Change in bowel habits, Reflux, Bloody stools, Melena Genitourinary: DENIES: Urinary incontinence, Difficulty voiding Integumentary: DENIES: Rash Neurologic: DENIES: Tingling or numbness, Memory problems, Poor Balance, Stroke symptoms Musculoskeletal: DENIES: Joint pain, Muscle pain, Limited range of motion, Back pain Psychiatric: COMPLAINS OF: Anxiety Hematologic: DENIES: Bruising tendencies, Bleeding tendencies Endocrine: DENIES: Weight gain, Weight loss, Thyroid disease (Ijeoma Rodriguez) Past Family Social History Allergies: Coded Allergies: iodine (Unverified Allergy, Severe, 02/28/18) levofloxacin (Unverified Allergy, Severe, Anaphylaxis, 02/28/18) potassium iodide (Unverified Allergy, Severe, 02/28/18) povidone-iodine (Unverified Allergy, Severe, 02/28/18) sodium iodide (Unverified Allergy, Severe, 02/28/18) sodium iodide (Unverified Allergy, Severe, 02/28/18) Past Medical History ASHD with history of bypass Hypertension Hyperlipidemia COPD Type 2 DM Sleep Apnea Anxiety Macular degeneration Past Surgical History CABG x 5 2006 Hernia repair 02/17/2014 Cholecystectomy 02/17/2014 Basal cell carcinoma removal Reported Medications Reported Meds & Active Scripts Active Reported Xanax (Alprazolam) 0.5 Mg Tab 0.5 Mg PO Q8H PRN Furosemide 20 Mg Tab 20 Mg PO THREE TIMES WEEK Spiriva Handihaler (Tiotropium Inh) 18 Mcg Cap 18 Mcg INH DAILY 1 capsule = 18 mcg Crestor (Rosuvastatin Calcium) 5 Mg Tab 5 Mg PO DAILY Avapro (Irbesartan) 75 Mg Tab 75 Mg PO BID Glipizide 5 Mg Tab 5 Mg PO DAILY Take 30 minutes before a meal Nadolol 20 Mg Tab 20 Mg PO DAILY Finasteride 5 Mg Tab 5 Mg PO DAILY Do not crush. Hydrochlorothiazide 12.5 Mg Tab 12.5 Mg PO DAILY Procardia (Nifedipine) 10 Mg Cap 90 Mg PO DAILY Prilosec (Omeprazole Magnesium) 20 Mg Tab 1 Tab PO DAILY Active Ordered Medications Current Medications Medications (Trade) Dose Ordered Sig/Dena Route Start Time Stop Time Status Last Admin (Xanax) 0.5 mg Q8H PRN PO 02/28/18 16:45 02/28/18 18:26 (Proscar) 5 mg DAILY PO 03/01/18 09:00 (Corgard) 20 mg DAILY PO 03/01/18 09:00 (Procardia Xl) 90 mg DAILY PO 03/01/18 09:00 (Spiriva Inh) 18 mcg DAILY INH 03/01/18 09:00 (Protonix) 20 mg DAILY PO 03/01/18 09:00 (Lipitor) 10 mg DAILY PO 03/01/18 09:00 (NovoLOG SUPPLEMENTAL SCALE) 1 ACHS SLIDING SCALE SQ 02/28/18 17:00 02/28/18 20:47 (NS Flush) 2 ml UNSCH PRN IV FLUSH 02/28/18 16:45 (NS Flush) 2 ml BID IV FLUSH 02/28/18 21:00 02/28/18 20:47 (Tylenol) 650 mg Q4H PRN PO 02/28/18 16:45 (Heparin Inj) 5,000 units Q8HR SQ 02/28/18 16:45 03/01/18 06:25 (Tylenol) 650 mg Q6H PRN PO 02/28/18 16:45 (Narcan Inj) 0.4 mg UNSCH PRN IV PUSH 5/5/18 16:45 (Catrina-Colace) 1 tab BID PO 02/28/18 21:00 02/28/18 20:47 (D50w (Vial) Inj) 50 ml UNSCH PRN IV PUSH 02/28/18 17:15 (Glucagon Inj) 1 mg UNSCH PRN OTHER 02/28/18 17:15 (Lasix Inj) 20 mg BID@,18 IV PUSH 03/01/18 09:00 (Albuterol Neb) 1.25 mg Q6HR NEB NEB 03/01/18 10:00 (Cozaar) 50 mg BID PO 03/01/18 09:00 Social History Non smoker (Shadeed,Ijeoma Jammiefrancesco YANG) Physical Exam Vital Signs Vital Signs Date Time Temp Pulse Resp B/P (MAP) Pulse Ox O2 Delivery O2 Flow Rate FiO2 03/01/18 09:00 96 21 03/01/18 06:11 75 03/01/18 05:00 70 03/01/18 04:00 68 03/01/18 03:52 97.6 71 20 179/84 (115) 94 03/01/18 03:00 53 03/01/18 02:00 72 03/01/18 01:00 58 03/01/18 00:00 56 02/28/18 23:01 98.0 70 20 164/77 (106) 96 02/28/18 23:00 57 02/28/18 22:00 68 02/28/18 21:00 66 02/28/18 20:25 98.1 67 20 167/80 (109) 96 02/28/18 19:25 02/28/18 19:15 68 20 98 02/28/18 19:12 68 20 173/74 (107) 167/69 (101) 02/28/18 18:18 60 18 177/79 (111) 97 Room Air 02/28/18 18:05 97 02/28/18 15:39 60 16 179/77 (111) 97 Room Air 02/28/18 14:45 60 18 188/68 (108) 97 Room Air 02/28/18 14:41 98 Room Air 02/28/18 14:41 18 98 Room Air 02/28/18 13:46 74 20 194/77 (116) 96 Room Air 02/28/18 13:04 98.1 78 18 196/87 (123 97 Physical Exam GENERAL: Anxious, pleasant, elderly male SKIN: Warm and dry. HEAD: Atraumatic. Normocephalic. EYES: Left eye blindness. ENT: No nasal bleeding or discharge. Mucous membranes pink and moist. NECK: Trachea midline. No JVD. CARDIOVASCULAR: Regular rate and rhythm. RESPIRATORY: No accessory muscle use. Clear to auscultation. Breath sounds equal bilaterally. GASTROINTESTINAL: Abdomen soft, non-tender, nondistended. Hepatic and splenic margins not palpable. MUSCULOSKELETAL: 2+ BLE edema NEUROLOGICAL: Awake and alert. No obvious cranial nerve deficits. Motor grossly within normal limits. Five out of 5 muscle strength in the arms and legs. Normal speech. PSYCHIATRIC: Appropriate mood and affect; insight and judgment normal. Laboratory Laboratory Tests Test 02/28/18 13:30 02/28/18 19:05 03/01/18 00:45 03/01/18 05:50 White Blood Count 8.4 9.3 Red Blood Count 2.93 3.13 Hemoglobin 8.9 10.0 Hematocrit 27.0 28.4 Mean Corpuscular Volume 92.3 90.6 Mean Corpuscular Hemoglobin 30.6 32.1 Mean Corpuscular Hemoglobin Concent 33.1 35.4 Red Cell Distribution Width 12.5 13.2 Platelet Count 395 407 Mean Platelet Volume 7.7 7.2 Neutrophils (%) (Auto) 83.6 83.7 Lymphocytes (%) (Auto) 8.0 8.3 Monocytes (%) (Auto) 7.0 6.2 Eosinophils (%) (Auto) 1.1 1.3 Basophils (%) (Auto) 0.3 0.5 Neutrophils # (Auto) 7.0 7.8 Lymphocytes # (Auto) 0.7 0.8 Monocytes # (Auto) 0.6 0.6 Eosinophils # (Auto) 0.1 0.1 Basophils # (Auto) 0.0 0.0 CBC Comment DIFF FINAL DIFF FINAL Differential Comment Prothrombin Time 10.2 Prothromb Time International Ratio 1.0 Activated Partial Thromboplast Time 29.5 Blood Urea Nitrogen 42 42 Creatinine 2.50 2.26 Random Glucose 325 205 Total Protein 6.7 6.8 Albumin 2.6 2.7 Calcium Level 8.7 8.9 Magnesium Level 1.9 Alkaline Phosphatase 105 96 Aspartate Amino Transf (AST/SGOT) 16 15 Alanine Aminotransferase (ALT/SGPT) 22 22 Total Bilirubin 0.3 0.3 Sodium Level 131 133 Potassium Level 5.1 4.5 Chloride Level 101 101 Carbon Dioxide Level 20.3 20.8 Anion Gap 10 11 Estimat Glomerular Filtration Rate 25 28 Total Creatine Kinase 50 Troponin I LESS THAN 0.02 LESS THAN 0.02 LESS THAN 0.02 B-Type Natriuretic Peptide 475 (Ijeoma Rodriguez) Result Diagram: 03/01/18 0550 03/01/18 0550 Imaging Last 48 hours Impressions Chest X-Ray 02/28/18 1306 Signed Impressions: Service Date/Time: Wednesday, February 28, 2018 13:19 - CONCLUSION: Abnormal perihilar and lower lung zone interstitial opacities in a pattern suggestive of pulmonary edema. Antwon Ferguson MD (Ijeoma Rodriguez) Assessment and Plan Assessment and Plan Chest pain Acute on chronic diastolic heart failure Renal Insuficiency Hypertension COPD Sleep Apnea DM Denies CP this AM, troponins negative. Will continue with IV diuresis and careful monitoring of renal function Will consult nephrology and repeat BMP in AM. Will increase losartan to 50mg BID Per patients request, will resume home nebulizer treatments Compliant with CPAP The patient was seen and evaluated by Dr. Alonso who completed face to face encounter, physical exam and participated in care, management and decision making. (Ijeoma Rodriguez) Assessment and Plan The exam, history, and the medical decision-making described in the above note were completed with the assistance of the mid-level provider. I reviewed and agree with the findings presented. I attest that I had a [id number] encounter with the patient on the same day, and personally performed and documented my assessment and findings in the medical record CHF and chest pain may need cath as per Dr Shay However CR is elevated so as per Dr Shay who is his regular physician. . (Sherman Alonso MD) Ijeoma Rodriguez March 01, 2018 09:06 Sherman Alonso MD March 01, 2018 09:41
[2018-03-01] MEDS: RESP: ALBUTEROL 1.25 MG/3 ML NEB (SCH) NEB ×3 (10:22→19:48)
[2018-03-01] MEDS: TIOTROPIUM BROMIDE 18 MCG INH INH SCH (12:14)
[2018-03-01] MEDS: ALPRAZolam 0.5 MG TAB PO PRN ×2 (12:24→21:13)
[2018-03-01] MEDS ORDERED: LABETALOL HCL 100 MG/20 ML VIAL IV PUSH PRN (12:30)
--- NOTE | 2018-03-01 12:45 | PD.CONS ---
HPI Service Nephrology Consult Requested By Dr. Alonso Reason for Consult Acute and chronic kidney disease Primary Care Physician Carmen May MD History of Present Illness Patient is a 87-year-old white male with history of hypertension, diabetes, coronary artery disease status post CABG who states he has shortness of breath and chest pressure and was admitted with this condition, patient stated that he stopped taking the diuretics as his renal functions were getting worse, his creatinine is around 2.26, declined from 2.5 last year labs showed creatinine around 1.8 in August 2017, he denies any dysuria, burning or kidney stones denies taking nonsteroidal anti-inflammatory drugs. Review of Systems Constitutional: COMPLAINS OF: Fatigue Eyes: COMPLAINS OF: Vision loss Respiratory: COMPLAINS OF: Shortness of breath Cardiovascular: COMPLAINS OF: Chest pain Gastrointestinal: DENIES: Abdominal pain, Black stools, Bloody stools, Constipation, Diarrhea, Nausea, Vomiting, Difficulty Swallowing, Anorexia Genitourinary: DENIES: Sexual dysfunction, Urinary frequency, Urinary incontinence, Urgency, Hematuria, Dysuria, Nocturia, Penile Discharge, Testicular Pain, Testicular Swelling Musculoskeletal: DENIES: Joint pain, Muscle aches, Stiffness, Joint Swelling, Back pain, Neck pain Integumentary: DENIES: Abnormal pigmentation, Nail changes, Pruritus, Rash Hematologic/lymphatic: DENIES: Bruising, Lymphadenopathy Immunologic/allergic: DENIES: Eczema, Urticaria Psychiatric: COMPLAINS OF: Anxiety Past Family Social History Allergies: Coded Allergies: iodine (Unverified Allergy, Severe, 02/28/18) levofloxacin (Unverified Allergy, Severe, Anaphylaxis, 02/28/18) potassium iodide (Unverified Allergy, Severe, 02/28/18) povidone-iodine (Unverified Allergy, Severe, 02/28/18) sodium iodide (Unverified Allergy, Severe, 02/28/18) sodium iodide (Unverified Allergy, Severe, 02/28/18) Past Medical History Hypertension Hyperlipidemia Coronary artery disease COPD Type 2 diabetes mellitus Osteoarthritis Sleep apnea GERD Basal cell carcinoma of the nose Macular degeneration Past Surgical History CABG 5 vessels, 2006 Hernia repair 02/17/14 Cholecystectomy 02/17/14 Basal cell carcinoma removed from the nose Reported Medications Reported Meds & Active Scripts Active Reported Xanax (Alprazolam) 0.5 Mg Tab 0.5 Mg PO Q8H PRN Furosemide 20 Mg Tab 20 Mg PO THREE TIMES WEEK Spiriva Handihaler (Tiotropium Inh) 18 Mcg Cap 18 Mcg INH DAILY 1 capsule = 18 mcg Crestor (Rosuvastatin Calcium) 5 Mg Tab 5 Mg PO DAILY Avapro (Irbesartan) 75 Mg Tab 75 Mg PO BID Glipizide 5 Mg Tab 5 Mg PO DAILY Take 30 minutes before a meal Nadolol 20 Mg Tab 20 Mg PO DAILY Finasteride 5 Mg Tab 5 Mg PO DAILY Do not crush. Hydrochlorothiazide 12.5 Mg Tab 12.5 Mg PO DAILY Procardia (Nifedipine) 10 Mg Cap 90 Mg PO DAILY Prilosec (Omeprazole Magnesium) 20 Mg Tab 1 Tab PO DAILY Active Ordered Medications Current Medications Medications (Trade) Dose Ordered Sig/Dena Route Start Time Stop Time Status Last Admin (Xanax) 0.5 mg Q8H PRN PO 02/28/18 16:45 03/01/18 12:24 (Proscar) 5 mg DAILY PO 03/01/18 09:00 03/01/18 08:57 (Corgard) 20 mg DAILY PO 03/01/18 09:00 03/01/18 08:57 (Procardia Xl) 90 mg DAILY PO 03/01/18 09:00 03/01/18 08:57 (Spiriva Inh) 18 mcg DAILY INH 03/01/18 09:00 03/01/18 12:14 (Protonix) 20 mg DAILY PO 03/01/18 09:00 03/01/18 08:57 (Lipitor) 10 mg DAILY PO 03/01/18 09:00 03/01/18 08:57 (NovoLOG SUPPLEMENTAL SCALE) 1 ACHS SLIDING SCALE SQ 02/28/18 17:00 03/01/18 12:14 (NS Flush) 2 ml UNSCH PRN IV FLUSH 02/28/18 16:45 (NS Flush) 2 ml BID IV FLUSH 02/28/18 21:00 03/01/18 08:58 (Tylenol) 650 mg Q4H PRN PO 02/28/18 16:45 (Heparin Inj) 5,000 units Q8HR SQ 02/28/18 16:45 03/01/18 06:25 (Tylenol) 650 mg Q6H PRN PO 02/28/18 16:45 (Narcan Inj) 0.4 mg UNSCH PRN IV PUSH 02/28/18 16:45 (Catrina-Colace) 1 tab BID PO 02/28/18 21:00 03/01/18 08:59 (D50w (Vial) Inj) 50 ml UNSCH PRN IV PUSH 02/28/18 17:15 (Glucagon Inj) 1 mg UNSCH PRN OTHER 02/28/18 17:15 (Lasix Inj) 20 mg BID@ IV PUSH 03/01/18 09:00 03/01/18 08:58 (Albuterol Neb) 1.25 mg Q6HR NEB NEB 03/01/18 10:00 03/01/18 10:22 (Cozaar) 50 mg BID PO 03/01/18 09:00 03/01/18 08:57 (Apresoline Inj) 20 mg Q4H PRN IV PUSH 03/01/18 12:30 (Trandate Inj) 10 mg Q4H PRN IV PUSH 03/01/18 12:30 Family History CAD Social History Denies smoking or ETOH Physical Exam Vital Signs Vital Signs Date Time Temp Pulse Resp B/P (MAP) Pulse Ox O2 Delivery O2 Flow Rate FiO2 03/01/18 12:09 200/88 (125) 98 03/01/18 11:00 97.6 71 22 178/79 (112) 95 03/01/18 09:00 96 21 03/01/18 07:00 97.5 74 20 167/78 (107) 95 03/01/18 06:11 75 03/01/18 05:00 70 03/01/18 04:00 68 03/01/18 03:52 97.6 71 20 179/84 (115) 94 03/01/18 03:00 53 03/01/18 02:00 72 03/01/18 01:00 58 03/01/18 00:00 56 02/28/18 23:01 98.0 70 20 164/77 (106) 96 02/28/18 23:00 57 02/28/18 22:00 68 02/28/18 21:00 66 02/28/18 20:25 98.1 67 20 167/80 (109) 96 02/28/18 19:25 02/28/18 19:15 68 20 98 02/28/18 19:12 68 20 173/74 (107) 167/69 (101) 02/28/18 18:18 60 18 177/79 (111) 97 Room Air 02/28/18 18:05 97 02/28/18 15:39 60 16 179/77 (111) 97 Room Air 02/28/18 14:45 60 18 188/68 (108) 97 Room Air 02/28/18 14:41 98 Room Air 02/28/18 14:41 18 98 Room Air 02/28/18 13:46 74 20 194/77 (116) 96 Room Air 02/28/18 13:04 98.1 78 18 196/87 (123) 97 Physical Exam GENERAL: Well-nourished, well-developed patient. SKIN: Warm and dry. HEAD: Normocephalic. EYES: No scleral icterus. No injection or drainage. Left eye blindness NECK: Supple, trachea midline. No JVD or lymphadenopathy. CARDIOVASCULAR: Regular rate and rhythm without murmurs, gallops, or rubs. RESPIRATORY: Breath sounds equal bilaterally. No accessory muscle use. GASTROINTESTINAL: Abdomen soft, non-tender, nondistended. EXTREMITIES: No cyanosis, mild edema. NEUROLOGICAL: Awake, alert, and oriented x 3. Non-focal. Laboratory Laboratory Tests Test 02/28/18 13:30 02/28/18 19:05 03/01/18 00:45 03/01/18 05:50 White Blood Count 8.4 9.3 Red Blood Count 2.93 3.13 Hemoglobin 8.9 10.0 Hematocrit 27.0 28.4 Mean Corpuscular Volume 92.3 90.6 Mean Corpuscular Hemoglobin 30.6 32.1 Mean Corpuscular Hemoglobin Concent 33.1 35.4 Red Cell Distribution Width 12.5 13.2 Platelet Count 395 407 Mean Platelet Volume 7.7 7.2 Neutrophils (%) (Auto) 83.6 83.7 Lymphocytes (%) (Auto) 8.0 8.3 Monocytes (%) (Auto) 7.0 6.2 Eosinophils (%) (Auto) 1.1 1.3 Basophils (%) (Auto) 0.3 0.5 Neutrophils # (Auto) 7.0 7.8 Lymphocytes # (Auto) 0.7 0.8 Monocytes # (Auto) 0.6 0.6 Eosinophils # (Auto) 0.1 0.1 Basophils # (Auto) 0.0 0.0 CBC Comment DIFF FINAL DIFF FINAL Differential Comment Prothrombin Time 10.2 Prothromb Time International Ratio 1.0 Activated Partial Thromboplast Time 29.5 Blood Urea Nitrogen 42 42 Creatinine 2.50 2.26 Random Glucose 325 205 Total Protein 6.7 6.8 Albumin 2.6 2.7 Calcium Level 8.7 8.9 Magnesium Level 1.9 Alkaline Phosphatase 105 96 Aspartate Amino Transf (AST/SGOT) 16 15 Alanine Aminotransferase (ALT/SGPT) 22 22 Total Bilirubin 0.3 0.3 Sodium Level 131 133 Potassium Level 5.1 4.5 Chloride Level 101 101 Carbon Dioxide Level 20.3 20.8 Anion Gap 10 11 Estimat Glomerular Filtration Rate 25 28 Total Creatine Kinase 50 Troponin I LESS THAN 0.02 LESS THAN 0.02 LESS THAN 0.02 B-Type Natriuretic Peptide 475 Result Diagram: 03/01/18 0550 03/01/18 0550 Imaging Last Impressions Chest X-Ray 02/28/18 1306 Signed Impressions: Service Date/Time: Wednesday, February 28, 2018 13:19 - CONCLUSION: Abnormal perihilar and lower lung zone interstitial opacities in a pattern suggestive of pulmonary edema. Antwon Ferguson MD Assessment and Plan Problem List: (1) Acute renal failure ICD Codes: N17.9 - Acute kidney failure, unspecified Plan: Patient has renal insufficiency and looking at the records going on since last year and this is getting worse, acute component could be related to cardio renal syndrome This is improved He is getting Lasix 20 mg IV BID I would investigate and do ultrasound of the kidneys, MICAH, serum complement, protein electrophoresis Blood pressure is labile and I added hydralazine 25 mg 3 times daily (2) CHF exacerbation ICD Codes: I50.9 - Heart failure, unspecified Status: Acute Plan: Patient has uncontrolled hypertension and hydralazine added (3) Hypertensive urgency ICD Codes: I16.0 - Hypertensive urgency Status: Acute Plan: Better control systolic blood pressure which is high (4) Hyponatremia ICD Codes: E87.1 - Hypo-osmolality and hyponatremia Status: Acute Plan: Likely due to CHF (5) Type 2 diabetes mellitus ICD Codes: E11.9 - Type 2 diabetes mellitus without complications Status: Chronic Plan: Monitor blood glucose Problem Qualifiers (1) CHF exacerbation: Qualified Codes: I50.9 - Heart failure, unspecified Yoli,Sajid MD March 01, 2018 12:45
--- NOTE | 2018-03-01 13:11 | EKG ---
Date Performed: 02/28/2018 Time Performed: 13:01:07 PTAGE: 87 years EKG: Sinus rhythm WITH FIRST DEGREE AV BLOCK WITH OCCASIONAL SUPRAVENTRICULAR PREMATURE COMPLEXES LEFT VENTRICULAR HYP ERTROPHY AND ST-T CHANGE INFERIOR MYOCARDIAL INFARCTION POSSIBLE ANTEROSEPTAL MYOCARDIAL INFARCTION A BNORMAL ECG PREVIOUS TRACING : 09/06/2015 16.16 DOCTOR: Ayaz Monae Interpretating Date/Time 03/01/2018 13:10:35
--- NOTE | 2018-03-01 13:11 | EKG ---
Date Performed: 02/28/2018 Time Performed: 20:13:54 PTAGE: 87 years EKG: Sinus rhythm with 1st degree A-V block Prolonged QT interval Leftward axis Inferior infarct - age undetermined An teroseptal infarct - age undetermined Lateral T wave changes are nonspecific Abnormal ECG PREVIOUS TRACING : 02/28/[address] changes are somewhat more prominent, consider is chemia. DOCTOR: Ayaz Monae Interpretating Date/Time 03/01/2018 13:10:59
--- NOTE | 2018-03-01 13:12 | EKG ---
Date Performed: 03/01/2018 Time Performed: 01:48:10 PTAGE: 87 years EKG: Sinus rhythm with 1st degree A-V block Leftward axis Inferior infarct - age undetermined Anteroseptal infarct - a ge undetermined Lateral T wave changes are nonspecific Abnormal ECG PREVIOUS TRACING : 02/28/2018 20.13 Since the previous tracing, no significant change noted DOCTOR: Ayaz Monae Interpretating Date/Time 03/01/2018 13:11:09
[2018-03-01] MEDS: hydrALAZINE HCL 25 MG TAB PO SCH ×2 (16:05→21:12)
[2018-03-01 17:25] LABS: BILIRUBIN, URINE NEG (NEG); BLOOD, URINE NEG (NEG); GLUCOSE,URINE TRACE mg/dL (NEG); KETONE, URINE NEG (NEG); NITRITE,URINE NEG (NEG); SQUAMOUS EPITHELIAL CELL URINE <1 /hpf (0-5); URINE LEUKOCYTE ESTERASE NEG (NEG)
[2018-03-01 17:27] LABS: URINE COLOR STRAW (YELLW/STRAW)
--- NOTE | 2018-03-01 18:33 | RADRPT ---
EXAM DATE/TIME: 03/01/2018 17:54 [facility] COMPARISON: No previous studies available for comparison. INDICATIONS : Increased BUN/Creatinine. MEDICAL HISTORY : Chronic obstructive pulmonary disease. Cerebrovascular disease. Diabetes mellitus type 2. GERD.Osteo arthritis. Sleep apnea. GERD. Basal cell carcinoma of the nose. Macular Degeneration. SURGICAL HISTORY : CABG. Hernia repair 2013. Basal Cell Carcinoma removed from the nose. ENCOUNTER: Initial ACUITY: 1 day PAIN SCORE: 3/10 LOCATION: Bilateral flank MEASUREMENTS: RIGHT KIDNEY: 11.2 x 5.0 x 4.6 cm LEFT KIDNEY: 10.3 x 5.3 x 5.2 cm FINDINGS: RIGHT KIDNEY: 1.9 cm simple cyst in the midpole. Diffuse hyperechogenicity of the cortex. No evidence of hydronephr osis. LEFT KIDNEY: Diffuse cortical thinning and hyperechogenicity. No evidence of hydronephrosis. BLADDER: Within normal limits given the degree of distension. CONCLUSION: Echogenic kidneys suggesting medical renal disease. No evidence of hydronephrosis. Be Trejo MD on March 01, 2018 at 18:29 Board Certified Radiologist. This report was verified electronically.
[2018-03-01] MEDS: hydrALAZINE HCL 20 MG/ML VIAL IV PUSH PRN (22:31)
[2018-03-02] VITALS (16 sets, daily range): BP systolic 131–190; BP diastolic 70–93; PULSE 56–83; RESP 18–20; TEMP 97.6–98; O2SAT 94–99
[2018-03-02] MEDS: hydrALAZINE HCL 20 MG/ML VIAL IV PUSH PRN (03:18)
[2018-03-02] MEDS: RESP: ALBUTEROL 1.25 MG/3 ML NEB (SCH) NEB ×2 (03:53→10:00)
[2018-03-02] MEDS: HEPARIN SODIUM - SQ 10,000 UNITS/ML VIAL SQ SCH ×2 (05:44→13:44)
[2018-03-02] MEDS: hydrALAZINE HCL 25 MG TAB PO SCH ×2 (05:44→13:44)
[2018-03-02 06:43] LABS: BICARBONATE 20.2 MEQ/L (21.0-32.0); CALCIUM 8.7 MG/DL (8.5-10.1); CREATININE 2.25 MG/DL (0.60-1.30)
[2018-03-02 06:45] LABS: COMPLEMENT C4 35 MG/DL (10-40)
[2018-03-02] MEDS: INSULIN ASPART SUPPLEMENTAL SCALE SQ SCH ×2 (07:37→11:08)
--- NOTE | 2018-03-02 08:13 | PD.CARD.PN ---
Subjective Subjective Remarks Feeling better. Wants to go home. Denies CP or SOB. BP still high. Objective Medications Current Medications Medications (Trade) Dose Ordered Sig/Dena Route Start Time Stop Time Status Last Admin (Xanax) 0.5 mg Q8H PRN PO 02/28/18 16:45 03/01/18 21:13 (Proscar) 5 mg DAILY PO 03/01/18 09:00 03/01/18 08:57 (Procardia Xl) 90 mg DAILY PO 03/01/18 09:00 03/01/18 08:57 (Spiriva Inh) 18 mcg DAILY INH 03/01/18 09:00 03/01/18 12:14 (Protonix) 20 mg DAILY PO 03/01/18 09:00 03/01/18 08:57 (Lipitor) 10 mg DAILY PO 03/01/18 09:00 03/01/18 08:57 (NovoLOG SUPPLEMENTAL SCALE) 1 ACHS SLIDING SCALE SQ 02/28/18 17:00 03/01/18 21:11 (NS Flush) 2 ml UNSCH PRN IV FLUSH 02/28/18 16:45 03/02/18 03:19 (NS Flush) 2 ml BID IV FLUSH 02/28/18 21:00 03/01/18 21:13 (Tylenol) 650 mg Q4H PRN PO 02/28/18 16:45 (Heparin Inj) 5,000 units Q8HR SQ 02/28/18 16:45 03/02/18 05:44 (Tylenol) 650 mg Q6H PRN PO 02/28/18 16:45 (Narcan Inj) 0.4 mg UNSCH PRN IV PUSH 02/28/18 16:45 (Catrina-Colace) 1 tab BID PO 02/28/18 21:00 03/01/18 08:59 (D50w (Vial) Inj) 50 ml UNSCH PRN IV PUSH 02/28/18 17:15 (Glucagon Inj) 1 mg UNSCH PRN OTHER 02/28/18 17:15 (Albuterol Neb) 1.25 mg Q6HR NEB NEB 03/01/18 10:00 03/02/18 03:53 (Cozaar) 50 mg BID PO 03/01/18 09:00 03/01/18 21:11 (Apresoline Inj) 20 mg Q4H PRN IV PUSH 03/01/18 12:30 03/02/18 03:18 (Trandate Inj) 10 mg Q4H PRN IV PUSH 03/01/18 12:30 03/01/18 23:57 (Apresoline) 25 mg Q8HR PO 03/01/18 14:00 03/02/18 05:44 (Corgard) 40 mg DAILY PO 03/02/18 09:00 UNV (Lasix) 40 mg DAILY PO 03/02/18 09:00 UNV Vital Signs / I&O Vital Signs Date Time Temp Pulse Resp B/P (MAP) Pulse Ox O2 Delivery O2 Flow Rate FiO2 03/02/18 06:03 83 03/02/18 05:00 64 03/02/18 04:00 76 03/02/18 03:21 97.9 71 20 190/93 (125) 99 03/02/18 03:00 58 03/02/18 02:00 56 03/02/18 01:00 58 03/02/18 00:00 66 03/01/18 23:51 97.6 70 18 177/77 (110) 99 03/01/18 23:00 70 03/01/18 22:00 73 194/78 (116) 96 03/01/18 22:00 72 03/01/18 21:02 97.8 78 20 187/85 (119) 98 03/01/18 21:00 82 03/01/18 20:00 60 03/01/18 19:49 96 03/01/18 19:00 75 03/01/18 18:00 76 03/01/18 17:00 78 03/01/18 16:09 97.0 73 18 185/83 (117) 96 03/01/18 16:00 72 03/01/18 15:00 69 03/01/18 14:00 76 03/01/18 13:14 161/74 (103) 03/01/18 13:00 68 03/01/18 12:09 200/88 (125) 98 03/01/18 12:00 68 03/01/18 11:00 75 03/01/18 11:00 97.6 71 22 178/79 (112) 95 03/01/18 10:00 82 5/6/18 09:00 96 21 03/01/18 09:00 74 I/O 03/01/18 03/01/18 03/01/18 03/02/18 03/02/18 03/02/18 07:00 15:00 23:00 07:00 15:00 23:00 Intake Total 830 ml 800 ml 240 ml Output Total 1425 ml 1800 ml 800 ml Balance -595 ml -1000 ml -560 ml Intake Oral 830 ml 800 ml 240 ml Output Urine Total 1425 ml 1800 ml 800 ml # Bowel Movements 5 1 Physical Exam BP high. No JVD. Lungs: Decreased BS bilat, CTA Heart: RRR, no murmur. Ext: No C/C/E Neuro: Non-focal. Laboratory Laboratory Tests Test 03/01/18 17:10 03/02/18 06:00 Urine Color STRAW Urine Turbidity CLEAR Urine pH 7.0 Urine Specific [place] 1.006 Urine Protein 100 mg/dL Urine Glucose (UA) TRACE mg/dL Urine Ketones NEG mg/dL Urine Occult Blood NEG Urine Nitrite NEG Urine Bilirubin NEG Urine Urobilinogen LESS THAN 2.0 MG/DL Urine Leukocyte Esterase NEG Urine WBC LESS THAN 1 /hpf Urine Squamous Epithelial Cells <1 /hpf Microscopic Urinalysis Comment CULT NOT INDICATED Blood Urea Nitrogen 46 MG/DL Creatinine 2.25 MG/DL Random Glucose 135 MG/DL Calcium Level 8.7 MG/DL Sodium Level 133 MEQ/L Potassium Level 4.3 MEQ/L Chloride Level 101 MEQ/L Carbon Dioxide Level 20.2 MEQ/L Anion Gap 12 MEQ/L Estimat Glomerular Filtration Rate 28 ML/MIN Total Protein 5.9 GM/DL Complement C3 139 MG/DL Complement C4 35 MG/DL Imaging Last 48 hours Impressions Renal Ultrasound 03/01/18 0000 Signed Impressions: Service Date/Time: Thursday, March 01, 2018 17:54 - CONCLUSION: Echogenic kidneys suggesting medical renal disease. No evidence of hydronephrosis. Be Trejo MD Chest X-Ray 02/28/18 1306 Signed Impressions: Service Date/Time: Wednesday, February 28, 2018 13:19 - CONCLUSION: Abnormal perihilar and lower lung zone interstitial opacities in a pattern suggestive of pulmonary edema. Antwon Ferguson MD Assessment and Plan Problem List: (1) Acute on chronic diastolic (congestive) heart failure ICD Codes: I50.33 - Acute on chronic diastolic (congestive) heart failure (2) Coronary artery disease ICD Codes: I25.10 - Atherosclerotic heart disease of [place] coronary artery without angina pectoris Status: Chronic (3) Renal insufficiency ICD Codes: N28.9 - Disorder of kidney and ureter, unspecified Status: Acute (4) COPD (chronic obstructive pulmonary disease) ICD Codes: J44.9 - Chronic obstructive pulmonary disease, unspecified Status: Acute Assessment and Plan No evidence of myocardial ischemia or ACS as etiology of recent events. Likely multifactorial with uncontrolled HTN, acute HFpEF, renal insufficiency, anemia and COPD contribution. Needs more aggressive BP control. Increase Nadolol 40 mg rené. Restart home met terazocin 5 mg daily. Change IV lasix to 40 mg PO daily. Increase activity as tolerates. Home today or tomorrow depending on BP control and any additional nephrology workup. Following. Problem Qualifiers (1) COPD (chronic obstructive pulmonary disease): Qualified Codes: J44.9 - Chronic obstructive pulmonary disease, unspecified Ariel Raymond MD March 02, 2018 08:13
[2018-03-02] MEDS: TIOTROPIUM BROMIDE 18 MCG INH INH SCH (08:22)
[2018-03-02] MEDS: SODIUM CHLORIDE 0.9% FLUSH 10 ML FLUSH IV FLUSH SCH (08:23)
[2018-03-02] MEDS: ATORVASTATIN 10 MG TAB PO SCH (08:23)
[2018-03-02] MEDS: LOSARTAN 25 MG TAB PO SCH (08:24)
[2018-03-02] MEDS: NIFEdipine 90 MG SUSTAINED RELEASE TAB PO SCH (08:24)
[2018-03-02] MEDS: FINASTERIDE 5 MG TAB PO SCH (08:25)
[2018-03-02] MEDS: PANTOPRAZOLE SOD 20 MG DELAYED RELEASE TAB PO SCH (08:25)
[2018-03-02] MEDS: DOCUSATE SODIUM 50 MG/SENNA 8.6 MG TAB PO SCH (08:26)
--- NOTE | 2018-03-02 08:39 | HHI.PR ---
Subjective Remarks Patient in nad. No n/v/d/c. Denies chest pain or sob. Says he feels tired. However he feel better than yesterday and hopes he will go home. BP is elevated, meds adjusted. No fever or chills. No motor deficit. Objective Vitals Vital Signs Date Time Temp Pulse Resp B/P (MAP) Pulse Ox O2 Delivery O2 Flow Rate FiO2 03/02/18 06:03 83 03/02/18 05:00 64 03/02/18 04:00 76 03/02/18 03:21 97.9 71 20 190/93 (125) 99 03/02/18 03:00 58 03/02/18 02:00 56 03/02/18 01:00 58 03/02/18 00:00 66 03/01/18 23:51 97.6 70 18 177/77 (110) 99 03/01/18 23:00 70 03/01/18 22:00 73 194/78 (116) 96 03/01/18 22:00 72 03/01/18 21:02 97.8 78 20 187/85 (119) 98 03/01/18 21:00 82 03/01/18 20:00 60 03/01/18 19:49 96 03/01/18 19:00 75 03/01/18 18:00 76 03/01/18 17:00 78 03/01/18 16:09 97.0 73 18 185/83 (117) 96 03/01/18 16:00 72 03/01/18 15:00 69 03/01/18 14:00 76 03/01/18 13:14 161/74 (103) 03/01/18 13:00 68 03/01/18 12:09 200/88 (125) 98 03/01/18 12:00 68 03/01/18 11:00 75 03/01/18 11:00 97.6 71 22 178/79 (112) 95 03/01/18 10:00 82 03/01/18 09:00 96 21 03/01/18 09:00 74 I/O 03/01/18 03/01/18 03/01/18 03/02/18 03/02/18 03/02/18 07:00 15:00 23:00 07:00 15:00 23:00 Intake Total 830 ml 800 ml 240 ml Output Total 1425 ml 1800 ml 800 ml Balance -595 ml -1000 ml -560 ml Intake Oral 830 ml 800 ml 240 ml Output Urine Total 1425 ml 1800 ml 800 ml # Bowel Movements 5 1 Result Diagram: 03/01/18 0550 03/02/18 0600 Imaging Last Impressions Renal Ultrasound 03/01/18 0000 Signed Impressions: Service Date/Time: Thursday, March 01, 2018 17:54 - CONCLUSION: Echogenic kidneys suggesting medical renal disease. No evidence of hydronephrosis. Be Trejo MD Chest X-Ray 02/28/18 1306 Signed Impressions: Service Date/Time: Wednesday, February 28, 2018 13:19 - CONCLUSION: Abnormal perihilar and lower lung zone interstitial opacities in a pattern suggestive of pulmonary edema. Antwon Ferguson MD Objective Remarks GENERAL: Well-nourished, well-developed patient. CARDIOVASCULAR: Regular rate and rhythm without murmurs, gallops, or rubs. Sternal scar noted RESPIRATORY: Diminished breath sounds equal bilaterally. Crackles at the bases. No accessory muscle use. GASTROINTESTINAL: Abdomen soft, non-tender, nondistended. MUSCULOSKELETAL: No cyanosis. 1-2+ LE edema. BACK: Nontender without obvious deformity. No CVA tenderness. A/P Assessment and Plan Acute on chronic diastolic heart failure The pt endorses weakness, shortness of breath and chest pressure. BNP is elevated. Last echo demonstrated diastolic dysfunction. Scheduled for a stress test as an outpt. Cardiology consulted, recommends transfer pt to the main hospital. Seen by Dr Alonso continue diuresis. Dr Roe his cardio will come tomorrw IV Lasix BID. Change IV lasix to PO lasix 40 mg po daily Follow Is and Os. Continue cardiac regimen. Start hydralazine 25 mg p.o. every 8 hours. Increase nadolol 40-40 mg p.o. daily. Restart terazosin. Monitor blood pressure and adjust medications as needed Monitor on telemetry. PT. Trend trops and EKGs. Acute on chronic renal disease Creatinine is elevated over baseline. Kidney function is not back at his baseline. Avoid nephrotoxins. - monitor BMP while diuresing. Hypertension emergency BP of 200/88 . Add hydralazin IV and labetalol IV with paremeters . Monitor closely VS. Start hydralazine 25 mg p.o. every 8 hours. Increase nadolol 40-40 mg p.o. daily. Restart terazosin. Monitor blood pressure and adjust medications as needed. DM2. Poorly controlled. - hold home glipizide. - insulin sliding scale. Accuchecks. - check an A1c. Anemia Appears to be at baseline. Follow CBC. HTN Blood pressure has been elevated. Resume home regimen. Clonidine as needed. PPx: Heparin/ SCD/TEDs Discussed Condition With Patient, nurse DC plan: when improved and cleared by cardio, Dr Roe, and nephrology Kidney function is not at baseline Discussed with the patient, nurse Rebeca Meneses MD March 02, 2018 08:39
--- NOTE | 2018-03-02 08:41 | HHI.DS ---
Discharge Summary Admission Date February 28, 2018 at 16:45 Discharge Date: March 03, 2018 Admitting Diagnosis CHF exacerbation (1) Type 2 diabetes mellitus ICD Code: E11.9 - Type 2 diabetes mellitus without complications Status: Chronic (2) Acute on chronic diastolic (congestive) heart failure ICD Code: I50.33 - Acute on chronic diastolic (congestive) heart failure (3) GERD (gastroesophageal reflux disease) ICD Code: K21.9 - Gastro-esophageal reflux disease without esophagitis Status: Chronic (4) Hyperlipidemia ICD Code: E78.5 - Hyperlipidemia, unspecified Status: Chronic (5) COPD (chronic obstructive pulmonary disease) ICD Code: J44.9 - Chronic obstructive pulmonary disease, unspecified Status: Acute (6) Hypertension ICD Code: I10 - Essential (primary) hypertension Status: Chronic (7) Acute renal failure ICD Code: N17.9 - Acute kidney failure, unspecified (8) Coronary artery disease ICD Code: I25.10 - Atherosclerotic heart disease of [place] coronary artery without angina pectoris Status: Chronic Procedures none Brief History - From Admission The patient is an 87-year-old male with a past medical history of CAD status post CABG and diabetes who is presenting to the hospital with weakness, shortness of breath and chest pressure. The patient says that for the past week or so he has been feeling weak. He says normally he plays 18 holes of golf but he has not been able to do so because he has been short of breath and tired, as well as weak. He says he feels like he is having a hard time getting air in. He does not have chest pain but does describe chest pressure on the left side. He says he has not been taking his diuretics as he is supposed to because his primary tells him that his kidneys have been acting up. He also says he has not been taking his glipizide when he is supposed to because his blood sugar tends to drop low when he plays golf. He follows with Dr. Raymond and was scheduled to have a stress test on March 25. The patient endorses swelling in the lower extremities. He is tolerating a diet. Discussed with nursing. CBC/BMP: 03/01/18 0550 03/02/18 0600 Significant Findings Laboratory Tests Test 02/28/18 13:30 02/28/18 19:05 03/01/18 00:45 03/01/18 05:50 Red Blood Count 2.93 MIL/MM3 (4.50-5.90) 3.13 MIL/MM3 (4.50-5.90) Hemoglobin 8.9 GM/DL (13.0-17.0) 10.0 GM/DL (13.0-17.0) Hematocrit 27.0 % (39.0-51.0) 28.4 % (39.0-51.0) Neutrophils (%) (Auto) 83.6 % (16.0-70.0) 83.7 % (16.0-70.0) Lymphocytes (%) (Auto) 8.0 % (9.0-44.0) 8.3 % (9.0-44.0) Lymphocytes # (Auto) 0.7 TH/MM3 (1.0-4.8) 0.8 TH/MM3 (1.0-4.8) Blood Urea Nitrogen 42 MG/DL (7-18) 42 MG/DL (7-18) Creatinine 2.50 MG/DL (0.60-1.30) 2.26 MG/DL (0.60-1.30) Random Glucose 325 MG/DL (74-106) 205 MG/DL (74-106) Albumin 2.6 GM/DL (3.4-5.0) 2.7 GM/DL (3.4-5.0) Sodium Level 131 MEQ/L (136-145) 133 MEQ/L (136-145) Carbon Dioxide Level 20.3 MEQ/L (21.0-32.0) 20.8 MEQ/L (21.0-32.0) Estimat Glomerular Filtration Rate 25 ML/MIN (>89) 28 ML/MIN (>89) Troponin I LESS THAN 0.02 NG/ML LESS THAN 0.02 NG/ML LESS THAN 0.02 NG/ML B-Type Natriuretic Peptide 475 PG/ML (0-100) Neutrophils # (Auto) 7.8 TH/MM3 (1.8-7.7) Test 03/01/18 17:10 03/02/18 06:00 Urine Protein 100 mg/dL (NEG-TRACE) Blood Urea Nitrogen 46 MG/DL (7-18) Creatinine 2.25 MG/DL (0.60-1.30) Random Glucose 135 MG/DL (74-106) Sodium Level 133 MEQ/L (136-145) Carbon Dioxide Level 20.2 MEQ/L (21.0-32.0) Estimat Glomerular Filtration Rate 28 ML/MIN (>89) Total Protein 5.9 GM/DL (6.0-7.6) Imaging Last Impressions Renal Ultrasound 03/01/18 0000 Signed Impressions: Service Date/Time: Thursday, March 01, 2018 17:54 - CONCLUSION: Echogenic kidneys suggesting medical renal disease. No evidence of hydronephrosis. Be Trejo MD Chest X-Ray 02/28/18 1306 Signed Impressions: Service Date/Time: Wednesday, February 28, 2018 13:19 - CONCLUSION: Abnormal perihilar and lower lung zone interstitial opacities in a pattern suggestive of pulmonary edema. Antwon Ferguson MD PE at Discharge GENERAL: Well-nourished, well-developed patient. CARDIOVASCULAR: Regular rate and rhythm without murmurs, gallops, or rubs. Sternal scar noted RESPIRATORY: Diminished breath sounds equal bilaterally. Crackles at the bases. No accessory muscle use. GASTROINTESTINAL: Abdomen soft, non-tender, nondistended. MUSCULOSKELETAL: No cyanosis. 1-2+ LE edema. BACK: Nontender without obvious deformity. No CVA tenderness. Hospital Course Acute on chronic diastolic heart failure The patient endorses weakness, shortness of breath and chest pressure. BNP is elevated. Last echo demonstrated diastolic dysfunction. Scheduled for a stress test as an outpt. Cardiology consulted, recommends transfer pt to the main hospital. Seen by Dr Alonso continue diuresis. Seen by Dr Roe appreciate recs IV Lasix BID. Change IV lasix to PO lasix 40 mg po daily Follow Is and Os. Continue cardiac regimen. Start hydralazine 25 mg p.o. every 8 hours. Increase nadolol 40-40 mg p.o. daily. Restart terazosin. Monitor blood pressure and adjust medications as needed, Cleared for DC by cardio Monitor on telemetry. PT. Trend trops and EKGs. Acute on chronic renal disease, resolving . Cleared by nephro for DC to follwo up as OP Creatinine is elevated over baseline. Kidney function is not back at his baseline. Avoid nephrotoxins. - monitor BMP while diuresing. Hypertension emergency BP of 200/88 . Add hydralazin IV and labetalol IV with paremeters . Monitor closely VS. Start hydralazine 25 mg p.o. every 8 hours. Increase nadolol 40-40 mg p.o. daily. Restart terazosin. Monitor blood pressure and adjust medications as needed. DM2. Poorly controlled. - hold home glipizide. - insulin sliding scale. Accuchecks. - check an A1c. Anemia Appears to be at baseline. Follow CBC. HTN Blood pressure has been elevated. Resume home regimen. Clonidine as needed. PPx: Heparin/ SCD/TEDs Discussed Condition With Patient, nurse Patient improved , cleared by cardio and nephrology for DC to follow up as OP with PCP and consultants. Pt Condition on Discharge: Stable Discharge Disposition: Disch w/ Home Health Serv Discharge Time: > 30 minutes Discharge Instructions DIET: Follow Instructions for: Heart Healthy Diet, Renal Failure Diet Activities you can perform: Regular-No Restrictions Follow up Referrals: Appointment for Follow Up - 2 Weeks with Marina Kent MD Cardiology - 2 Weeks with Ariel Raymond MD PCP Follow-up - 2-3 Days with Carmen May MD New Medications: Furosemide (Furosemide) 40 Mg Tab 40 MG PO DAILY for Blood Pressure Management, #30 TAB Hydralazine HCl (Hydralazine HCl) 25 Mg Tablet 25 MG PO Q8HR for Blood Pressure Management, #120 TAB Nadolol (Corgard) 40 Mg Tab 40 MG PO DAILY for Blood Pressure Management, #60 TAB Terazosin (Terazosin) 5 Mg Cap 5 MG PO HS for Blood Pressure Management, #30 CAP Continued Medications: Alprazolam (Xanax) 0.5 Mg Tab 0.5 MG PO Q8H PRN for ANXIETY, TAB 0 Refills Finasteride (Finasteride) 5 Mg Tab 5 MG PO DAILY for Manage Prostate Problems, #30 TAB 0 Refills Do not crush. Glipizide (Glipizide) 5 Mg Tab 5 MG PO DAILY for Blood Sugar Management, #30 TAB 0 Refills Take 30 minutes before a meal Irbesartan (Avapro) 75 Mg Tab 75 MG PO BID for Blood Pressure Management, #30 TAB 0 Refills Nifedipine (Procardia) 10 Mg Cap 90 MG PO DAILY for Chest Pain, #180 CAP 0 Refills Omeprazole Magnesium (Prilosec) 20 Mg Tab 1 TAB PO DAILY Rosuvastatin (Crestor) 5 Mg Tab 5 MG PO DAILY for Cholesterol Management, #30 TAB 0 Refills Tiotropium Inh (Spiriva Handihaler) 18 Mcg Cap 18 MCG INH DAILY for COPD, #30 CAP 0 Refills 1 capsule = 18 mcg Discontinued Medications: Furosemide (Furosemide) 20 Mg Tab 20 MG PO three times week, #30 TAB 0 Refills Hydrochlorothiazide (Hydrochlorothiazide) 12.5 Mg Tab 12.5 MG PO DAILY, #30 TAB 0 Refills Nadolol (Nadolol) 20 Mg Tab 20 MG PO DAILY, #30 TAB 0 Refills Rebeca Meneses MD March 02, 2018 08:41
--- NOTE | 2018-03-02 08:41 | HHI.FF ---
Face to Face Verification Diagnosis: (1) Acute on chronic diastolic (congestive) heart failure (2) Type 2 diabetes mellitus (3) Acute renal failure (4) Hypertensive urgency (5) COPD (chronic obstructive pulmonary disease) (6) GERD (gastroesophageal reflux disease) (7) Hypertension Physical Therapy Order: Evaluate and Treat Home Health Nursing Order: Medical education Signs/symptoms of disease process Medication education-adverse effect Nursing assessment with vital signs I have seen patient Boni Thacker on 03/02/18. My clinical findings support the need for the requested home health care services because: Ltd mobility - disease progression Patient has SOB I certify that my clinical findings support that this patient is homebound because: Post-op weakness Rebeca Meneses MD March 02, 2018 08:41
[2018-03-02] MEDS ORDERED: TERA5CAP3 PO (08:44)
[2018-03-02] MEDS ORDERED: HYDR-3799 PO (08:44)
[2018-03-02] MEDS ORDERED: FURO40TA PO (08:44)
[2018-03-02] MEDS ORDERED: NADO1TAB17 PO (08:44)
[2018-03-02] MEDS ORDERED: NADOLOL 40 MG TAB PO SCH (09:00)
[2018-03-02] MEDS ORDERED: FUROSEMIDE 40 MG TAB PO SCH (09:00)
[2018-03-02] MEDS: ALPRAZolam 0.5 MG TAB PO PRN (11:07)
[2018-03-02 11:16] LABS: AUTOMATED NEUTROPHIL # 8.3 TH/MM3 (1.8-7.7); BASOPHIL # 0.1 TH/MM3 (0-0.2); BASOPHIL % 0.7 % (0.0-2.0); EOSINOPHIL # 0.1 TH/MM3 (0-0.4); EOSINOPHIL % 1.2 % (0.0-4.0); HEMATOCRIT 28.8 % (39.0-51.0); HEMOGLOBIN 10.5 GM/DL (13.0-17.0); LYMPH % 8.8 % (9.0-44.0); LYMPHOCYTE # 0.9 TH/MM3 (1.0-4.8); MEAN CELL VOLUME 89.4 FL (80.0-100.0); MEAN CORPUSCULAR HEMOGLOBIN 32.5 PG (27.0-34.0); MEAN CORPUSCULAR HGB CONC 36.3 % (32.0-36.0); MEAN PLATELET VOLUME 7.1 FL (7.0-11.0); MONOCYTE # 0.8 TH/MM3 (0-0.9); NEUT % 81.3 % (16.0-70.0); PLATELET COUNT 472 TH/MM3 (150-450); RED BLOOD COUNT 3.22 MIL/MM3 (4.50-5.90); RED CELL DISTRIBUTION WIDTH 13.5 % (11.6-17.2); WHITE BLOOD COUNT 10.2 TH/MM3 (4.0-11.0)
[2018-03-02 11:35] LABS: BICARBONATE 18.9 MEQ/L (21.0-32.0); CALCIUM 8.4 MG/DL (8.5-10.1); CREATININE 2.41 MG/DL (0.60-1.30)
--- NOTE | 2018-03-02 13:49 | HHI.NPPN ---
Subjective History of Present Illness year old with CKD HTN DM Objective Data Data Vital Signs Date Time Temp Pulse Resp B/P (MAP) Pulse Ox O2 Delivery O2 Flow Rate FiO2 03/02/18 12:50 131/70 (90) 03/02/18 12:00 97.6 70 18 177/75 (109) 96 03/02/18 12:00 66 03/02/18 11:00 70 03/02/18 10:00 78 03/02/18 09:00 76 03/02/18 09:00 178/75 (109) 03/02/18 08:00 77 03/02/18 08:00 98.0 77 18 188/79 (115) 94 03/02/18 07:00 64 03/02/18 06:03 83 03/02/18 05:00 64 03/02/18 04:00 76 03/02/18 03:21 97.9 71 20 190/93 (125) 99 03/02/18 03:00 58 03/02/18 02:00 56 03/02/18 01:00 58 03/02/18 00:00 66 03/01/18 23:51 97.6 70 18 177/77 (110) 99 03/01/18 23:00 70 03/01/18 22:00 73 194/78 (116) 96 03/01/18 22:00 72 03/01/18 21:02 97.8 78 20 187/85 (119) 98 03/01/18 21:00 82 03/01/18 20:00 60 03/01/18 19:49 96 03/01/18 19:00 75 03/01/18 18:00 76 03/01/18 17:00 78 03/01/18 16:09 97.0 73 18 185/83 (117) 96 03/01/18 16:00 72 03/01/18 15:00 69 03/01/18 14:00 76 -: 03/02/18 1055 03/02/18 1103 Physical Exam General Appearance: Well Developed, Well Nourished Neck Neck Exam: Neck Supple Pulmonary Resp Exam: Clear Bilaterally, Breath Sounds Equal Cardiology CV Exam: Regular, Normal Sinus Rhythm Gastrointestinal/Abdomen GI Exam: Soft, Non-Tender, Bowel Sounds Present Extremeties Extremities Exam: No Edema Assessment/Plan Problem List: (1) Acute renal failure ICD Codes: N17.9 - Acute kidney failure, unspecified Plan: Patient is been discharged follow up as out patient for stage 4 CKD avoid NSAIDS, Control diabetes,Hypertension ultrasound of the kidneys suggest CKD HTN better 131/70 (2) CHF exacerbation ICD Codes: I50.9 - Heart failure, unspecified Status: Acute Plan: Patient has uncontrolled hypertension and hydralazine added (3) Hypertensive urgency ICD Codes: I16.0 - Hypertensive urgency Status: Acute Plan: Better control systolic blood pressure which is high (4) Hyponatremia ICD Codes: E87.1 - Hypo-osmolality and hyponatremia Status: Acute Plan: Likely due to CHF (5) Type 2 diabetes mellitus ICD Codes: E11.9 - Type 2 diabetes mellitus without complications Status: Chronic Plan: Monitor blood glucose Problem Qualifiers (1) CHF exacerbation: Qualified Codes: I50.9 - Heart failure, unspecified Marina Kent MD March 02, 2018 13:49
[2018-03-02] MEDS ORDERED: TERAZOSIN HCL 5 MG CAP PO SCH (21:00)
[2018-03-03 21:29] LABS: ALB/GLOB RATIO (SPE) 1.08 (1.39-2.23)
[2018-03-04 16:17] LABS: ANA PATTERN DIFFUSE
== END 2018-03-02 15:28 | disposition home health service (06) ==
LOC: PHED 12:52 → INTOOBSV 16:45 → PHEDA 16:45 → HCIS 19:59
PROVIDERS: ADMIT Hospitalist; ATTEND Hospitalist
DX: I50.33 Acute on chronic diastolic (congestive) heart failure (principal); I13.0 Hypertensive heart and chronic kidney disease with heart failure and stage 1 through stage 4 chronic kidney disease, or unspecified chronic kidney disease; N18.4 Chronic kidney disease, stage 4 (severe); N17.9 Acute kidney failure, unspecified; I25.10 Atherosclerotic heart disease of native coronary artery without angina pectoris; E11.22 Type 2 diabetes mellitus with diabetic chronic kidney disease; E87.1 Hypo-osmolality and hyponatremia; D64.9 Anemia, unspecified; E78.5 Hyperlipidemia, unspecified; K21.9 Gastro-esophageal reflux disease without esophagitis; G47.30 Sleep apnea, unspecified; J44.9 Chronic obstructive pulmonary disease, unspecified; H35.30 Unspecified macular degeneration; Z95.1 Presence of aortocoronary bypass graft; Z85.828 Personal history of other malignant neoplasm of skin; Z82.49 Family history of ischemic heart disease and other diseases of the circulatory system
CPT/HCPCS: 71045; 76775; 80048; 80053; 81001; 82550; 82948; 83735; 83880; 84165; 84484; 85025; 85610; 85730; 86038; 86039; 86160; 86335; 93005; 94640; 94664; 96372; 96374; 96375; 96376; 97163; 99285; G0378; G8987; G8988; J0360; J1644; J1815; J1940; J7613

== ENCOUNTER → 2018-04-01 | Outpatient (CLI) | payer MEDICARE, BC ==
[~2018-04-01] MED LIST changes: -BACT800T5 PO; -CEPH-460 PO; -FURO20TA PO; +FURO40TA PO; +HYDR-3799 PO; -HYDR12.56 PO; +NADO1TAB17 PO; -NADO20TA PO; +TERA5CAP3 PO
[2018-04-01 10:32] LABS: AUTOMATED NEUTROPHIL # 5.2 TH/MM3 (1.8-7.7); BASOPHIL # 0.1 TH/MM3 (0-0.2); BASOPHIL % 0.8 % (0.0-2.0); EOSINOPHIL # 0.1 TH/MM3 (0-0.4); EOSINOPHIL % 1.9 % (0.0-4.0); HEMATOCRIT 28.1 % (39.0-51.0); HEMOGLOBIN 9.8 GM/DL (13.0-17.0); LYMPH % 17.2 % (9.0-44.0); LYMPHOCYTE # 1.2 TH/MM3 (1.0-4.8); MEAN CELL VOLUME 91.4 FL (80.0-100.0); MEAN CORPUSCULAR HEMOGLOBIN 31.9 PG (27.0-34.0); MEAN CORPUSCULAR HGB CONC 34.9 % (32.0-36.0); MEAN PLATELET VOLUME 8.4 FL (7.0-11.0); MONO % 7.7 % (0.0-8.0); MONOCYTE # 0.5 TH/MM3 (0-0.9); NEUT % 72.4 % (16.0-70.0); PLATELET COUNT 278 TH/MM3 (150-450); RED BLOOD COUNT 3.08 MIL/MM3 (4.50-5.90); RED CELL DISTRIBUTION WIDTH 13.5 % (11.6-17.2); WHITE BLOOD COUNT 7.1 TH/MM3 (4.0-11.0)
[2018-04-01 10:37] LABS: % SATURATION IRON PROFILE 14.7 % (20-50); BICARBONATE 20.9 MEQ/L (21.0-32.0); BLOOD UREA NITROGEN 58 MG/DL (7-18); CALCIUM 8.5 MG/DL (8.5-10.1); CHLORIDE 104 MEQ/L (98-107); CREATININE 2.72 MG/DL (0.60-1.30); GLOMERULAR FILTRATION RATE 22 ML/MIN (>89); GLUCOSE,FASTING 161 MG/DL (74-99); IRON (FE) 59 MCG/DL (65-175); SODIUM (NA) 135 MEQ/L (136-145); TOTAL IRON BINDING CAPACITY 400 MCG/DL (250-450)
== END ==
LOC: PLAB 08:01
PROVIDERS: ATTEND Family Medicine
DX: E78.5 Hyperlipidemia, unspecified (principal); N18.3 Chronic kidney disease, stage 3 (moderate)
CPT/HCPCS: 36415; 80048; 82668; 83540; 83550; 85025

== ENCOUNTER 2018-06-13 22:53 | Inpatient (IN) ==
[2018-06-13 23:14] LABS: Baso # (Auto) 0.1 th/mm3 (0.0-0.2); Baso % (Auto) 0.8 % (0.0-2.0); Eos # (Auto) 0.1 th/mm3 (0.0-0.4); Eos % (Auto) 1.3 % (0.0-4.0); Hematocrit 25.1 % (39.0-51.0); Hemoglobin 8.4 gm/dL (13.0-17.0); Lymph # (Auto) 0.8 th/mm3 (1.0-4.8); Lymph % (Auto) 10.8 % (9.0-44.0); Mean Corpuscular HGB Conc 33.4 % (32.0-36.0); Mean Corpuscular Volume 92.7 fL (80.0-100.0); Mean Platelet Volume 8.3 fL (7.0-11.0); Mono # (Auto) 0.5 th/mm3 (0.0-0.9); Mono % (Auto) 6.2 % (0.0-8.0); Neut # (Auto) 6.4 th/mm3 (1.8-7.7); Neut % (Auto) 80.9 % (16.0-70.0); Platelet Count 307 th/mm3 (150-450); Red Blood Count 2.71 mil/mm3 (4.50-5.90); Red Cell Distribution Width 12.4 % (11.6-17.2); White Blood Count 7.9 th/mm3 (4.0-11.0)
[2018-06-13] MEDS ORDERED: ALPRAZolam 0.5 MG Tablet PO ONE (23:21)
[2018-06-13 23:51] LABS: Alanine Aminotransferase 24 U/L (12-78); Alkaline Phosphatase 109 U/L (45-117); Anion Gap 9 meq/L (5-15); Aspartate Aminotransferase 21 U/L (15-37); Blood Urea Nitrogen 59 mg/dL (7-18); Calcium 7.9 mg/dL (8.5-10.1); Carbon Dioxide 19.6 meq/L (21.0-32.0); Chloride 94 meq/L (98-107); Glomerular Filtration Rate 23 mL/min (>89); Glucose,Random 177 mg/dL (74-106); Potassium 5.6 meq/L (3.5-5.1); Total Protein 6.8 g/dL (6.4-8.2)
--- NOTE | 2018-06-13 23:53 | XR ---
EXAM DATE: 06/13/2018 11:33 PM EDT AGE/SEX: 87 years / Male INDICATIONS: Short of breath. CLINICAL DATA: This is the patient's initial encounter. Patient reports that signs and symptoms have been present for 1 day and indicates a pain score of 5/10. MEDICAL/SURGICAL HISTORY: None. None. COMPARISON: No prior exams available for comparison. FINDINGS: The patient is status post sternotomy. The heart size is enlarged. Lungs are grossly clear. CONCLUSION: Cardiomegaly. The lungs are grossly clear. Electronically signed by: Antwon Rodríguez MD 06/13/2018 11:51 PM EDT
[2018-06-13 23:59] LABS: Sodium 123 meq/L (136-145)
--- NOTE | 2018-06-14 00:05 | ED ---
HPI General Chief Complaint: Chest Pain Stated Complaint: EVAC/Chest discomfort,short of breath Time Seen by Provider: 06/13/18 22:56 Source: patient, family and EMS Mode of arrival: ambulatory Limitations: no limitations History of Present Illness HPI narrative: Is an 87-year-old man presents to the emergency room complaining of chest discomfort and shortness of breath ongoing since tonight. He reports symptoms been ongoing for couple weeks, often worse at night. He reports compliance with his medication but his family states he does not take his Lasix regularly. Patient has noticed increased lower extremity edema, and weight gain of about 5 pounds. Family is noticed that he has been more sluggish, more dyspneic with exertion recently. Patient has a history of CHF, CAD with the CABG 5 in 2017, as well as COPD, and sleep apnea. Patient had a stress test within the past month or [address] Raymond that he reports was normal. Complete Quality Measures for STEMI Alert Patients Related Data Home Medications Medication Instructions Recorded Confirmed albuterol sulfate [ProAir HFA] 2 puff INHALATION Q4-6H PRN 06/13/18 06/13/18 alprazolam 0.5 mg PO TID PRN 06/13/18 06/13/18 finasteride 5 mg PO DAILY 06/13/18 06/13/18 furosemide 40 mg PO DAILY 06/13/18 06/13/18 glipizide 5 mg PO BID 06/13/18 06/13/18 irbesartan 75 mg PO BID 06/13/18 06/13/18 metronidazole 500 mg PO TID 06/13/18 06/13/18 nadolol 40 mg PO DAILY 06/13/18 06/13/18 nifedipine 90 mg PO DAILY 06/13/18 06/13/18 omeprazole 20 mg PO BID 06/13/18 06/13/18 potassium chloride 20 meq PO DAILY 06/13/18 06/13/18 rosuvastatin 5 mg PO DAILY 06/13/18 06/13/18 terazosin 5 mg PO HS 06/13/18 06/13/18 Allergies Allergy/AdvReac Type Severity Reaction Status Date / Time levofloxacin [From Levaquin] Allergy Rash Verified 06/13/18 23:11 Review of Systems ROS: all other systems reviewed are negative FOR[facility]LY [facility] Medical History Medical History Anxiety (Acute) BPH (benign prostatic hyperplasia) (Acute) CAD (coronary artery disease) (Acute) HLD (hyperlipidemia) (Acute) History of congestive heart failure (Acute) History of diverticulitis (Acute) Hx of diabetes mellitus (Acute) NILAM on CPAP (Acute) Surgical History Surgical History Hx of CABG (Acute) Hx of cholecystectomy (Acute) Social History Social History Substance History: No History of Abuse Smoking Status: Never smoker How Often Do You Have a Drink Containing Alcohol: Never Recent Travel in [facility] within the Last 8 Weeks: No Recent Out of Country Travel within the Last 8 Weeks: No Immunization History Tetanus Immunization: Unsure Hx Influenza Vaccine This Season: Yes Exam Narrative Exam Narrative: GENERAL: Well-appearing 87-year-old man, no acute distress. SKIN: Focused skin assessment warm/dry. HEAD: Atraumatic. Normocephalic. EYES: Pupils equal and round. No scleral icterus. No injection or drainage. ENT: No nasal bleeding or discharge. Mucous membranes pink and moist. NECK: Trachea midline. No JVD. CARDIOVASCULAR: Regular rate and rhythm. No murmur appreciated. RESPIRATORY: Minimal respiratory distress. Coarse breath sounds. GASTROINTESTINAL: Abdomen soft, non-tender, nondistended. Hepatic and splenic margins not palpable. MUSCULOSKELETAL: No obvious deformities. 2+ pitting edema bilateral lower extremities. NEUROLOGICAL: Awake and alert. No obvious cranial nerve deficits. Motor grossly within normal limits. Normal speech. PSYCHIATRIC: Appropriate mood and affect; insight and judgment normal. Course Initial Documented Vital Signs Temperature 97.5 F L 06/13/18 22:56 Pulse Rate 70 06/13/18 22:56 Respiratory Rate 18 06/13/18 22:56 Blood Pressure 160/68 H 06/13/18 22:56 Pulse Oximetry 98 06/13/18 22:56 Last Documented Vital Signs Temperature 97.5 F L 06/13/18 22:56 Pulse Rate 63 06/13/18 23:54 Respiratory Rate 18 06/13/18 23:54 Blood Pressure 160/68 H 06/13/18 23:14 Pulse Oximetry 97 06/13/18 23:54 Medical Decision Making MDM Narrative Medical decision making narrative: Is an 87-year-old man presents to the emergency department complaining of chest discomfort and shortness of breath with evidence of volume overload and CHF exacerbation. Possible noncompliance of Lasix. He states he ate [place] food today or yesterday. He looks overall well. He is sylvia edema. He is some evidence of volume overload on his pulmonary exam. Will check labs, IV Lasix, likely obscure diuresis and serial cardiac enzymes. Medical Screen Exam Complete: Yes Emergency Medical Condition: Yes Lab Data Lab results reviewed: Yes I reviewed the patient's lab results. Result diagrams: 06/13/18 23:04 06/13/18 23:04 Lab Results 06/13/18 06/13/18 06/13/18 Range/Units 23:04 23:04 23:04 CBC w Diff Auto diff final WBC 7.9 (4.0-11.0) th/mm3 RBC 2.71 L (4.50-5.90) mil/mm3 Hgb 8.4 L (13.0-17.0) gm/dL Hct 25.1 L (39.0-51.0) % MCV 92.7 (80.0-100.0) fL MCH 31.0 (27.0-34.0) pg MCHC 33.4 (32.0-36.0) % RDW 12.4 (11.6-17.2) % Plt Count 307 (150-450) th/mm3 MPV 8.3 (7.0-11.0) fL Neut % (Auto) 80.9 H (16.0-70.0) % Lymph % (Auto) 10.8 (9.0-44.0) % [place] % (Auto) 6.2 (0.0-8.0) % Eos % (Auto) 1.3 (0.0-4.0) % Baso % (Auto) 0.8 (0.0-2.0) % Neut # (Auto) 6.4 (1.8-7.7) th/mm3 Lymph # (Auto) 0.8 L (1.0-4.8) th/mm3 [place] # (Auto) 0.5 (0.0-0.9) th/mm3 Eos # (Auto) 0.1 (0.0-0.4) th/mm3 Baso # (Auto) 0.1 (0.0-0.2) th/mm3 WBC Differential . Differential Comment . Sodium 123 L* (136-145) meq/L Potassium 5.6 H (3.5-5.1) meq/L Chloride 94 L (98-107) meq/L Carbon Dioxide 19.6 L (21.0-32.0) meq/L Anion Gap 9 (5-15) meq/L BUN 59 H (7-18) mg/dL Creatinine 2.70 H (0.60-1.30) mg/dL Estimated GFR 23 L (>89) mL/min Random Glucose 177 H (74-106) mg/dL Calcium 7.9 L (8.5-10.1) mg/dL Total Bilirubin 0.2 (0.2-1.0) mg/dL AST 21 (15-37) U/L ALT 24 (12-78) U/L Alkaline Phosphatase 109 (45-117) U/L Troponin I Less than 0.02 L (0.02-0.05) ng/mL B-Natriuretic Peptide 594 H (0-100) pg/mL Total Protein 6.8 (6.4-8.2) g/dL Albumin 3.0 L (3.4-5.0) g/dL Imaging Data Radiologist's impression: Chest X-Ray 06/13/18 22:57 CONCLUSION: Cardiomegaly. The lungs are grossly clear. 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 Discharge Plan Physicians Team ED Provider: Alexis Austin Rxs /Orders / Referrals /Forms Prescriptions: No Action terazosin 5 mg Capsule 5 mg PO HS RF: 0 nifedipine 90 mg Tablet Extended Release 90 mg PO DAILY RF: 0 alprazolam 0.5 mg Tablet 0.5 mg PO TID PRN (Reason: Anxiety) RF: 0 omeprazole 20 mg Capsule,Delayed Release(Dr/Ec) 20 mg PO BID RF: 0 irbesartan 75 mg Tablet 75 mg PO BID RF: 0 nadolol 40 mg Tablet 40 mg PO DAILY RF: 0 rosuvastatin 5 mg Tablet 5 mg PO DAILY RF: 0 potassium chloride 20 meq PO DAILY RF: 0 furosemide 40 mg Tablet 40 mg PO DAILY RF: 0 metronidazole 500 mg Tablet 500 mg PO TID RF: 0 albuterol sulfate [ProAir HFA] 90 mcg/actuation Hfa Aerosol Inhaler 2 puff INHALATION Q4-6H PRN (Reason: Anxiety) RF: 0 finasteride 5 mg Tablet 5 mg PO DAILY RF: 0 glipizide 5 mg Tablet 5 mg PO BID RF: 0 Discharge Interventions Interventions: Vital Signs Last Done: 06/13/18 23:14 Status ED Status: With Doctor
[2018-06-14] MEDS ORDERED: Bisacodyl 10 MG Supp RECTAL PRN (00:26)
[2018-06-14] MEDS: Heparin - SQ 10,000 UNITS/ML Vial SQ SCH ×3 (00:50→23:50)
[2018-06-14 06:58] LABS: Creatine Kinase 64 U/L (39-308)
[2018-06-14] MEDS: Senna/Docusate Sodium 8.6/50 MG Tablet PO SCH ×2 (09:05→20:20)
--- NOTE | 2018-06-14 11:57 | P.HP ---
History of Present Illness Primary Care Physician: Carmen May MD History of Present Illness: 87-year-old male with a history of CHF, prior ND, CABG in 2017, recent diverticulitis. She presents to the ER overnight complaining of weight gain and associated shortness of breath. Approximately 1 week ago he developed abdominal pain in the left lower quadrant after 1 of his sons recommended increasing seeds in his diet. He went to [facility] and got a CT of the abdomen which showed diverticulitis. He was placed on Flagyl 3 times daily to address this and states that his abdomen is feeling much better. The ordeal however made his stomach upset and caused him to be generally weak. He reduced a few doses of his routine Lasix. After interview his other son mentions to me that he has a habit of skipping doses whenever he feels like it and that rather than gaining 3 or 4 pounds this week he is actually gained 10 pounds over the last 2 weeks at least. He sees Dr. Shay as his orthopedic physician assistant. In the last month he had a stress test and echocardiogram neither were of any concern with her findings. At this time he denies any nausea vomiting or diarrhea. He denies any focal deficits, weakness, slurring of speech, imbalance. He denies chest pain. Review of Systems All other systems reviewed negative except as stated in HPI PMFSH - History History Provided By: Patient - Medical History Medical History: Medical History (Last Reviewed 06/14/18 @ 00:02 by Alexis Austin MD) History of congestive heart failure History of diverticulitis Hx of diabetes mellitus Anxiety BPH (benign prostatic hyperplasia) CAD (coronary artery disease) HLD (hyperlipidemia) NILAM on CPAP - Surgical History Surgical History: Surgical History (Last Reviewed 06/14/18 @ 00:02 by Alexis Austin MD) Hx of CABG Hx of cholecystectomy - Family History Family History: Family History (Last Updated 06/14/18 @ 11:49 by Raul Roland MD) Other Coronary artery disease Hypertension - Tobacco History Second Hand Smoke Exposure: No Smoking Status: Never smoker - Alcohol History How Often Do You Have a Drink Containing Alcohol: Never - Substance Use History Substance History: No History of Abuse - Travel History Recent Travel in the [facility] Within the Last 8 Weeks: No Recent Travel Out of the Country Within the Last 8 Weeks: No - Immunization History Tetanus Immunization: Unsure Hx Influenza Vaccine This Season: Yes Medications and Allergies Active Medications: Active Medications Al Hydroxide/Mg Hydroxide (Milk Of Magnesia Liq) 30 ml PO Q12H PRN PRN Reason: Mild Constipation Alprazolam (Xanax) 0.5 mg PO TID PRN PRN Reason: Anxiety Bisacodyl (Dulcolax Supp) 10 mg RECTAL DAILY PRN PRN Reason: SEVERE CONSITIPATION Finasteride (Proscar) 5 mg PO DAILY [facility] Furosemide (Lasix Inj) 40 mg IV.PUSH BID@0900,1800 [facility] Last Admin: 06/14/18 09:05 Dose: 40 mg Heparin Sodium (Porcine) (Heparin Inj) 5,000 units SQ Q12H [facility] Last Admin: 06/14/18 00:50 Dose: 5,000 units Lactulose (Lactulose Liq) 30 ml PO DAILY PRN PRN Reason: SEVERE CONSITIPATION Losartan Potassium (Cozaar) 25 mg PO BID [facility] Last Admin: 06/14/18 03:32 Dose: Not Given Losartan Potassium (Cozaar) 25 mg PO ONCE ONE Stop: 06/14/18 11:47 Metronidazole (Flagyl) 500 mg PO TID [facility] Nadolol (Corgard) 40 mg PO DAILY [facility] Nifedipine (Procardia Xl) 90 mg PO DAILY [facility] Non-Formulary Medication (Albuterol Sulfate [Proair Hfa]) 2 puff INHALATION Q4- 6H PRN PRN Reason: Anxiety Non-Formulary Medication (Omeprazole [Omeprazole]) 20 mg PO BID [facility] Ondansetron HCl (Zofran Inj) 4 mg IV.PUSH Q6H PRN PRN Reason: NAUSEA OR VOMITING Senna/Docusate Sodium (Catrina-Colace) 1 tab PO BID [facility] Last Admin: 06/14/18 09:05 Dose: 1 tab Sennosides (Senokot) 17.2 mg PO Q12H PRN PRN Reason: Moderate Constipation Terazosin HCl (Hytrin) 5 mg PO [facility] Allergies Allergy/AdvReac Type Severity Reaction Status Date / Time levofloxacin [From Levaquin] Allergy Rash Verified 06/13/18 23:11 Home Medications Medication Instructions Recorded Confirmed Type albuterol sulfate [ProAir HFA] 2 puff INHALATION Q4-6H PRN 06/13/18 06/13/18 History alprazolam 0.5 mg PO TID PRN 06/13/18 06/13/18 History finasteride 5 mg PO DAILY 06/13/18 06/13/18 History furosemide 40 mg PO DAILY 06/13/18 06/13/18 History glipizide 5 mg PO BID 06/13/18 06/13/18 History irbesartan 75 mg PO BID 06/13/18 06/13/18 History metronidazole 500 mg PO TID 06/13/18 06/13/18 History nadolol 40 mg PO DAILY 06/13/18 06/13/18 History nifedipine 90 mg PO DAILY 06/13/18 06/13/18 History omeprazole 20 mg PO BID 06/13/18 06/13/18 History potassium chloride 20 meq PO DAILY 06/13/18 06/13/18 History rosuvastatin 5 mg PO DAILY 06/13/18 06/13/18 History terazosin 5 mg PO HS 06/13/18 06/13/18 History Exam Vital signs: Vital Signs 06/13/18 22:56 06/13/18 23:04 06/13/18 23:14 Temperature 97.5 F L Pulse Rate 70 67 Respiratory Rate 18 20 Blood Pressure 160/68 H 160/68 H Pulse Oximetry 98 98 97 06/13/18 23:54 06/14/18 04:00 06/14/18 07:25 Temperature 96.7 F L 96.1 F L Pulse Rate 63 67 65 Respiratory Rate 18 18 20 Blood Pressure 175/78 H 172/80 H Pulse Oximetry 97 93 L 95 06/14/18 07:40 06/14/18 11:12 Temperature 96.3 F L Pulse Rate 70 Respiratory Rate 20 Blood Pressure 180/81 H Pulse Oximetry 96 98 Intake & Output 06/13/18 06/14/18 06/14/18 18:59 06:59 18:59 Output Total 8210 / 8210 Balance -8210 / -8210 Weight 79.8 kg Output: Urine 8210 / 8210 Other: # Voids 3 Weight On Admission 80.1 kg Narrative: GENERAL: AAOx3, no acute distress, obese, weak, elderly SKIN: Warm and dry, no rashes. HEAD: Atraumatic. Normocephalic. EYES: Pupils equal, round, reactive to light. No scleral icterus. No injection or drainage. ENT: No nasal bleeding or discharge. Moist mucous membranes. Nonerythematous oropharynx. NECK: Trachea midline. No JVD. Thyroid size within normal limits. CARDIOVASCULAR: Regular rate and rhythm. No murmur, no gallops, no rubs. RESPIRATORY: Upper airway sounds clear, atelectasis in bilateral bases. No accessory muscle use. GASTROINTESTINAL: Abdomen soft, non-tender, nondistended, normal active bowel sounds. Hepatic and splenic margins not palpable. MUSCULOSKELETAL: Extremities without clubbing or cyanosis. No obvious deformities. 1+ edema to mid [place] bilaterally NEUROLOGICAL: Awake and alert. No obvious cranial nerve deficits. Motor grossly within normal limits. No focal deficits. Five out of 5 muscle strength in the arms and legs. Normal speech. PSYCHIATRIC: Appropriate mood and affect; insight and judgment normal. Results - Labs CBC & Chem 7: 06/13/18 23:04 06/13/18 23:04 Labs: Laboratory Results - last 24 hr 06/13/18 06/13/18 06/13/18 23:04 23:04 23:04 CBC w Diff Auto diff final WBC 7.9 RBC 2.71 L Hgb 8.4 L Hct 25.1 L MCV 92.7 MCH 31.0 MCHC 33.4 RDW 12.4 Plt Count 307 MPV 8.3 Neut % (Auto) 80.9 H Lymph % (Auto) 10.8 [place] % (Auto) 6.2 Eos % (Auto) 1.3 Baso % (Auto) 0.8 Neut # (Auto) 6.4 Lymph # (Auto) 0.8 L [place] # (Auto) 0.5 Eos # (Auto) 0.1 Baso # (Auto) 0.1 WBC Differential . Differential Comment . Sodium 123 L* Potassium 5.6 H Chloride 94 L Carbon Dioxide 19.6 L Anion Gap 9 BUN 59 H Creatinine 2.70 H Estimated GFR 23 L Random Glucose 177 H Calcium 7.9 L Total Bilirubin 0.2 AST 21 ALT 24 Alkaline Phosphatase 109 Total Creatine Kinase Troponin I Less than 0.02 L B-Natriuretic Peptide 594 H Total Protein 6.8 Albumin 3.0 L 06/14/18 05:40 CBC w Diff WBC RBC Hgb Hct MCV MCH MCHC RDW Plt Count MPV Neut % (Auto) Lymph % (Auto) [place] % (Auto) Eos % (Auto) Baso % (Auto) Neut # (Auto) Lymph # (Auto) [place] # (Auto) Eos # (Auto) Baso # (Auto) WBC Differential Differential Comment Sodium Potassium Chloride Carbon Dioxide Anion Gap BUN Creatinine Estimated GFR Random Glucose Calcium Total Bilirubin AST ALT Alkaline Phosphatase Total Creatine Kinase 64 Troponin I Less than 0.02 L B-Natriuretic Peptide Total Protein Albumin - Imaging Impressions Chest X-Ray 06/13/18 22:57 CONCLUSION: Cardiomegaly. The lungs are grossly clear. Caprini VTE Risk Assessment Caprini VTE Risk Assessment: Moderate/High Risk (score >= 2) Caprini Risk Assessment Model: Point Value = 1 Point Value = 2 Point Value = 3 Point Value = 5 Age 41-60 Minor surgery BMI > 25 kg/m2 Swollen legs Varicose veins or History of unexplained or recurrent spontaneous Oral contraceptives or hormone replacement Sepsis (< 1 month) Serious lung disease, including pneumonia (< 1 month) Abnormal pulmonary function Acute myocardial infarction Congestive heart failure (< 1 month) History of inflammatory bowel disease Medical patient at bed rest Age 61-74 Arthroscopic surgery Major open surgery (> 45 min) Laparoscopic surgery (> 45 min) Malignancy Confined to bed (> 72 hours) Immobilizing plaster cast Central venous access Age >= 75 History of VTE Family history of VTE Factor V Leiden Prothrombin [id number] Lupus anticoagulant Anticardiolipin antibodies Elevated serum homocysteine Heparin-induced thrombocytopenia Other congenital or acquired thrombophilia Stroke (< 1 month) Elective arthroplasty Hip, pelvis, or leg fracture Acute spinal cord injury (< 1 month) Prophylaxis Regimen: Total Risk Factor Score Risk Level Prophylaxis Regimen 0-1 Low Early ambulation 2 Moderate Order ONE of the following: *Sequential Compression Device (SCD) *Heparin 5000 units SQ BID 3-4 Higher Order ONE of the following medications: *Heparin 5000 units SQ TID *Enoxaparin/Lovenox 40 mg SQ daily (WT < 150 kg, CrCl > 30 mL/min) *Enoxaparin/Lovenox 30 mg SQ daily (WT < 150 kg, CrCl > 10-29 mL/min) *Enoxaparin/Lovenox 30 mg SQ BID (WT < 150 kg, CrCl > 30 mL/min) AND/OR *Sequential Compression Device (SCD) 5 or more Highest Order ONE of the following medications: *Heparin 5000 units SQ TID (Preferred with Epidurals) *Enoxaparin/Lovenox 40 mg SQ daily (WT < 150 kg, CrCl > 30 mL/min) *Enoxaparin/Lovenox 30 mg SQ daily (WT < 150 kg, CrCl > 10-29 mL/min) *Enoxaparin/Lovenox 30 mg SQ BID (WT < 150 kg, CrCl > 30 mL/min) AND *Sequential Compression Device (SCD) Assessment and Plan - Plan CHF exacerbation Fairly mild, patient has improving 1+ edema to mid [place], now more like trace edema BNP on admission was 536 Patient has responded favorably to IV Lasix overnight Will check oxygen walk test to determine his compensation Plan for discharge later today following another dose of IV Lasix Obstructive sleep apnea Patient has his home CPAP by bedside Anxiety Home dose of Xanax 0.5 3 times daily reconciled Hypertension Losartan added, nifedipine improved on reconciliation Diverticulitis Continue with Flagyl, patient has follow-up scheduled this week with PCP DVT Prophylaxis Heparin
[2018-06-14] MEDS: metroNIDAZOLE 500 MG Tablet PO SCH ×2 (12:14→20:18)
[2018-06-14] MEDS: ALPRAZolam 0.5 MG Tablet PO PRN ×2 (12:14→21:48)
[2018-06-14 12:45] LABS: Creatine Kinase 59 U/L (39-308)
--- NOTE | 2018-06-14 14:57 | ECG ---
Date Performed: 06/14/2018 Time Performed: 06:00:55 PTAGE: 87 years EKG: SINUS BRADYCARDIA WITH FIRST DEGREE AV BLOCK POSSIBLE ANTERIOR MYOCARDIAL INFARCTION INFERI OR MYOCARDIAL INFARCTION ABNORMAL ECG Since PREVIOUS TRACING , no significant change noted PREVIOUS TRACIN06/14/2018 00.08 DOCTOR: Stan John Interpretating Date/Time 06/14/2018 14:56:35
--- NOTE | 2018-06-14 14:57 | ECG ---
Date Performed: 06/14/2018 Time Performed: 00:08:56 PTAGE: 87 years EKG: Sinus rhythm WITH FIRST DEGREE AV BLOCK MODERATE VOLTAGE CRITERIA FOR LVH, CONSIDER NORMAL VARIANT POSSIBLE ANTER OSEPTAL MYOCARDIAL INFARCTION POSSIBLE INFERIOR MYOCARDIAL INFARCTION, OF UNDETERMINED AGE ABNORMAL E CG Since PREVIOUS TRACING , no significant change noted PREVIOUS TRACIN03/01/2018 01.48 DOCTOR: Stan John Interpretating Date/Time 06/14/2018 14:56:07
--- NOTE | 2018-06-14 14:57 | ECG ---
Date Performed: 06/14/2018 Time Performed: 12:05:20 PTAGE: 87 years EKG: Sinus rhythm WITH FIRST DEGREE AV BLOCK INCOMPLETE RIGHT BUNDLE BRANCH BLOCK MODERATE VOLTAGE CRITERIA FOR LVH, C ONSIDER NORMAL VARIANT POSSIBLE ANTERIOR MYOCARDIAL INFARCTION INFERIOR MYOCARDIAL INFARCTION ABNORMA L ECG Since PREVIOUS TRACING , no significant change noted PREVIOUS TRACIN06/14/2018 06.00 DOCTOR: Stan John Interpretating Date/Time 06/14/2018 14:56:55
[2018-06-14 15:03] LABS: Calcium 8.2 mg/dL (8.5-10.1); Carbon Dioxide 21.5 meq/L (21.0-32.0); Potassium 4.9 meq/L (3.5-5.1)
[2018-06-14] MEDS: Pantoprazole Sodium 20 MG DR Tablet PO SCH (20:20)
[2018-06-14] MEDS: Sodium Chloride 1 GM Tablet PO SCH (20:20)
[2018-06-15 06:19] LABS: Baso % (Auto) 0.3 % (0.0-2.0); Eos # (Auto) 0.1 th/mm3 (0.0-0.4); Eos % (Auto) 1.7 % (0.0-4.0); Hematocrit 24.9 % (39.0-51.0); Hemoglobin 8.5 gm/dL (13.0-17.0); Lymph # (Auto) 0.9 th/mm3 (1.0-4.8); Lymph % (Auto) 14.8 % (9.0-44.0); Mean Corpuscular HGB Conc 34.2 % (32.0-36.0); Mean Corpuscular Volume 90.6 fL (80.0-100.0); Mean Platelet Volume 8.1 fL (7.0-11.0); Mono # (Auto) 0.6 th/mm3 (0.0-0.9); Mono % (Auto) 10.6 % (0.0-8.0); Neut # (Auto) 4.5 th/mm3 (1.8-7.7); Neut % (Auto) 72.6 % (16.0-70.0); Platelet Count 285 th/mm3 (150-450); Red Blood Count 2.75 mil/mm3 (4.50-5.90); Red Cell Distribution Width 12.4 % (11.6-17.2); White Blood Count 6.1 th/mm3 (4.0-11.0)
[2018-06-15 06:23] LABS: Potassium 4.6 meq/L (3.5-5.1)
[2018-06-15 06:26] LABS: Calcium 8.2 mg/dL (8.5-10.1); Carbon Dioxide 23.5 meq/L (21.0-32.0)
[2018-06-15] MEDS: metroNIDAZOLE 500 MG Tablet PO SCH ×3 (08:19→17:38)
[2018-06-15] MEDS: Sodium Chloride 1 GM Tablet PO SCH ×2 (08:19→20:49)
[2018-06-15] MEDS: Pantoprazole Sodium 20 MG DR Tablet PO SCH ×2 (08:19→20:43)
[2018-06-15] MEDS: Finasteride 5 MG Tablet PO SCH (08:19)
[2018-06-15] MEDS: Nadolol 20 MG Tablet PO SCH (08:19)
[2018-06-15] MEDS: Senna/Docusate Sodium 8.6/50 MG Tablet PO SCH ×2 (08:20→20:44)
[2018-06-15] MEDS: Heparin - SQ 10,000 UNITS/ML Vial SQ SCH (14:20)
--- NOTE | 2018-06-15 14:24 | P.PN ---
Subjective Interval history: Follow-up heart failure and hyponatremia. States he feels crappy, tired but no headache or dizziness. He has dyspnea on exertion. No voiding issues. Physical Exam Vital signs: Vital Signs 06/14/18 15:26 06/14/18 20:00 06/14/18 23:30 Temperature 96.4 F L 96.7 F L Pulse Rate 68 64 Respiratory Rate 20 18 Blood Pressure 170/80 H 199/91 H Pulse Oximetry 98 99 98 06/15/18 00:00 06/15/18 04:00 06/15/18 07:46 Temperature 96.1 F L 97.8 F Pulse Rate 64 62 Respiratory Rate 18 18 Blood Pressure 170/77 H 171/77 H Pulse Oximetry 100 98 98 06/15/18 08:00 06/15/18 12:00 Temperature 97.5 F L 96.1 F L Pulse Rate 68 60 Respiratory Rate 20 20 Blood Pressure 142/68 H 155/70 H Pulse Oximetry 98 100 Intake & Output 06/14/18 06/15/18 06/15/18 18:59 06:59 18:59 Intake Total 1320 / 1320 Output Total 2200 / 2200 680 / 680 Balance -880 / -880 -680 / -680 Weight 79.8 kg Intake: Oral 1320 / 1320 Output: Urine 2200 / 2200 680 / 680 Other: Date of Last Bowel Movement 06/14/18 # Bowel Movements 1 Narrative: GENERAL: AAOx3, no acute distress, obese, weak, elderly SKIN: Warm and dry, no rashes. CARDIOVASCULAR: Regular rate and rhythm. No murmur, no gallops, no rubs. RESPIRATORY: Upper airway sounds clear, atelectasis in bilateral bases. No accessory muscle use. GASTROINTESTINAL: Abdomen soft, non-tender, nondistended, normal active bowel sounds. MUSCULOSKELETAL: Extremities without clubbing or cyanosis. No obvious deformities. 1+ edema to lower leg bilaterally NEUROLOGICAL: Awake and alert. No obvious cranial nerve deficits. Motor grossly within normal limits. No focal deficits. Five out of 5 muscle strength in the arms and legs. Normal speech. Results - Labs CBC & Chem 7: 06/15/18 05:10 06/15/18 05:10 Laboratory Results - last 24 hr 06/14/18 06/15/18 06/15/18 14:37 05:10 05:10 CBC w Diff Auto diff final WBC 6.1 RBC 2.75 L Hgb 8.5 L Hct 24.9 L MCV 90.6 MCH 31.0 MCHC 34.2 RDW 12.4 Plt Count 285 MPV 8.1 Neut % (Auto) 72.6 H Lymph % (Auto) 14.8 [place] % (Auto) 10.6 H Eos % (Auto) 1.7 Baso % (Auto) 0.3 Neut # (Auto) 4.5 Lymph # (Auto) 0.9 L [place] # (Auto) 0.6 Eos # (Auto) 0.1 Baso # (Auto) 0.0 WBC Differential . Differential Comment . Sodium 124 L* 125 L Potassium 4.9 4.6 Chloride 93 L 93 L Carbon Dioxide 21.5 23.5 Anion Gap 10 9 BUN 58 H 62 H Creatinine 2.70 H 2.60 H Estimated GFR 23 L 24 L Random Glucose 195 H 124 H Calcium 8.2 L 8.2 L - Imaging ITS Impressions Chest X-Ray 06/13/18 22:57 CONCLUSION: Cardiomegaly. The lungs are grossly clear. 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 Avoid nephrotoxins. Seizure precautions. Continue sodium tabs. Consult nephrology Obstructive sleep apnea Patient has his home CPAP by bedside Anxiety Home dose of Xanax 0.5 3 times daily reconciled Hypertension Losartan added, nifedipine improved on reconciliation Diverticulitis Continue with Flagyl, patient has follow-up scheduled this week with PCP DVT Prophylaxis Heparin Discharge Planning: Possible discharge in 1-2 days. PT eval
[2018-06-15] MEDS ORDERED: Benzonatate 100 MG Capsule PO PRN (14:47)
[2018-06-15] MEDS: guaiFENesin 600 MG ER Tablet PO SCH (20:42)
[2018-06-15] MEDS ORDERED: Gelatin Size 100 Topical Foam TOPICAL ONE (21:24)
--- NOTE | 2018-06-15 21:46 | P.CONNP ---
History of Present Illness Service: Nephrology Consult date: 06/15/18 Requesting Physician: Wesley Person Reason for Consult: Acute and chronic kidney disease Primary Care Provider: Carmen May MD Family Provider: Carmen May MD History of Present Illness: 87-year-old male with history of congestive heart failure on chronic renal insufficiency, admitted with increasing weakness and low sodium with CHF, patient creatinine is 2.6 He is feeling tired He has increased shortness of breath denies any dysuria Baseline creatinine around 2.4 back in February, seen by undersigned, ultrasound showed echogenic kidneys Urine immunofixation was normal MICAH 1:80 Serum complement C3 and C4 in normal range Abnormal small band seen since the Serum protein electrophoresis of unknown significance He is now admitted with congestive heart failure. Review of Systems Constitutional: Reports lack of energy Eyes: Reports loss of vision (Left) Cardiovascular: Reports irregular heart rhythm, Reports leg swelling, Reports shortness of breath Respiratory: Reports shortness of breath Gastrointestinal: Denies abdominal pain, Denies belching, Denies black, tarry stools, Denies bloating, Denies bright, red blood in stools, Denies change in bowel habits, Denies constant urge to pass stool, Denies change in stools, Denies coffee ground vomit, Denies constipation, Denies cramping, Denies difficulty swallowing, Denies excessive passing of gas, Denies feeling full early, Denies heartburn, Denies incontinent of stools, Denies loose stools, Denies nausea, Denies pain with swallowing, Denies vomiting, Denies vomiting blood, Denies other Genitourinary: Reports urinary urgency Musculoskeletal: Reports back pain Neurologic: Reports weakness PMFSH - History History Provided By: Patient - Medical History Medical History: Medical History (Last Reviewed 06/14/18 @ 00:02 by Alexis Austin MD) History of congestive heart failure History of diverticulitis Hx of diabetes mellitus Anxiety BPH (benign prostatic hyperplasia) CAD (coronary artery disease) HLD (hyperlipidemia) NILAM on CPAP - Surgical History Surgical History: Surgical History (Last Reviewed 06/14/18 @ 00:02 by Alexis Austin MD) Hx of CABG Hx of cholecystectomy - Family History Family History: Family History (Last Updated 06/14/18 @ 11:49 by Raul Rolnad MD) Other Coronary artery disease Hypertension - Tobacco History Second Hand Smoke Exposure: No Smoking Status: Never smoker - Alcohol History How Often Do You Have a Drink Containing Alcohol: Never - Substance Use History Substance History: No History of Abuse - Travel History Recent Travel in the [place] Within the Last 8 Weeks: No Recent Travel Out of the Country Within the Last 8 Weeks: No - Immunization History Tetanus Immunization: Unsure Hx Influenza Vaccine This Season: Yes Medications and Allergies Active Medications: Active Medications Albuterol (Ventolin Hfa Inh) 2 puff INH Q4H PRN PRN Reason: SHORTNESS OF BREATH/WHEEZING Last Admin: 06/14/18 15:13 Dose: 2 puff Alprazolam (Xanax) 0.5 mg PO TID PRN PRN Reason: Anxiety Last Admin: 06/14/18 21:48 Dose: 0.5 mg Benzonatate (Tessalon Perles) 200 mg PO Q8H PRN PRN Reason: COUGH Last Admin: 06/15/18 20:43 Dose: 100 mg Bisacodyl (Dulcolax Supp) 10 mg RECTAL DAILY PRN PRN Reason: SEVERE CONSITIPATION Clonidine HCl (Catapres) 0.1 mg PO Q6H PRN PRN Reason: SBP>160, DBP>90 Last Admin: 06/15/18 01:13 Dose: 0.1 mg Finasteride (Proscar) 5 mg PO DAILY [facility] Last Admin: 06/15/18 08:19 Dose: 5 mg Furosemide (Lasix Inj) 40 mg IV.PUSH BID@0900,1800 [facility] Last Admin: 06/15/18 17:38 Dose: 40 mg Guaifenesin (Mucinex Er) 600 mg PO BID [facility] Last Admin: 06/15/18 20:42 Dose: 600 mg Heparin Sodium (Porcine) (Heparin Inj) 5,000 units SQ Q12H [facility] Last Admin: 06/15/18 14:20 Dose: 5,000 units Lactulose (Lactulose Liq) 30 ml PO DAILY PRN PRN Reason: SEVERE CONSITIPATION Losartan Potassium (Cozaar) 25 mg PO BID [facility] Last Admin: 06/15/18 20:46 Dose: 25 mg Metronidazole (Flagyl) 500 mg PO TID [facility] Last Admin: 06/15/18 17:38 Dose: 500 mg Nadolol (Corgard) 40 mg PO DAILY [facility] Last Admin: 06/15/18 08:19 Dose: 40 mg Nifedipine (Procardia Xl) 90 mg PO DAILY [facility] Last Admin: 06/15/18 08:19 Dose: 90 mg Ondansetron HCl (Zofran Inj) 4 mg IV.PUSH Q6H PRN PRN Reason: NAUSEA OR VOMITING Last Admin: 06/15/18 20:33 Dose: 4 mg Pantoprazole Sodium (Protonix) 20 mg PO BID [facility] Last Admin: 06/15/18 20:43 Dose: 20 mg Senna/Docusate Sodium (Catrina-Colace) 1 tab PO BID [facility] Last Admin: 06/15/18 20:44 Dose: 1 tab Sennosides (Senokot) 17.2 mg PO Q12H PRN PRN Reason: Moderate Constipation Sodium Chloride (Sodium Chloride) 1 gm PO BID [facility] Last Admin: 06/15/18 20:49 Dose: 1 gm Terazosin HCl (Hytrin) 5 mg PO HS [facility] Last Admin: 06/15/18 20:42 Dose: 5 mg Tolvaptan (Samsca) 15 mg PO ONCE ONE Stop: 06/16/18 09:01 Allergies Allergy/AdvReac Type Severity Reaction Status Date / Time levofloxacin [From Levaquin] Allergy Rash Verified 06/13/18 23:11 Home Medications Medication Instructions Recorded Confirmed Type albuterol sulfate [ProAir HFA] 2 puff INHALATION Q4-6H PRN 06/13/18 06/13/18 History alprazolam 0.5 mg PO TID PRN 06/13/18 06/13/18 History finasteride 5 mg PO DAILY 06/13/18 06/13/18 History furosemide 40 mg PO DAILY 06/13/18 06/13/18 History glipizide 5 mg PO BID 06/13/18 06/13/18 History irbesartan 75 mg PO BID 06/13/18 06/13/18 History metronidazole 500 mg PO TID 06/13/18 06/13/18 History nadolol 40 mg PO DAILY 06/13/18 06/13/18 History nifedipine 90 mg PO DAILY 06/13/18 06/13/18 History omeprazole 20 mg PO BID 06/13/18 06/13/18 History potassium chloride 20 meq PO DAILY 06/13/18 06/13/18 History rosuvastatin 5 mg PO DAILY 06/13/18 06/13/18 History terazosin 5 mg PO HS 06/13/18 06/13/18 History Exam Vital signs: Vital Signs 06/14/18 23:30 06/15/18 00:00 06/15/18 04:00 Temperature 96.1 F L 97.8 F Pulse Rate 64 62 Respiratory Rate 18 18 Blood Pressure 170/77 H 171/77 H Pulse Oximetry 98 100 98 06/15/18 07:46 06/15/18 08:00 06/15/18 12:00 Temperature 97.5 F L 96.1 F L Pulse Rate 59 L 60 Respiratory Rate 20 20 Blood Pressure 142/68 H 155/70 H Pulse Oximetry 98 98 100 06/15/18 16:00 06/15/18 20:00 06/15/18 20:10 Temperature 96.4 F L 96.1 F L Pulse Rate 63 73 Respiratory Rate 20 19 Blood Pressure 142/65 H 142/72 H Pulse Oximetry 94 L 96 98 Intake & Output 06/15/18 06/15/18 06/16/18 06:59 18:59 06:59 Intake Total 600 / 600 Output Total 680 / 680 650 / 650 Balance -680 / -680 -50 / -50 Weight 79.8 kg Intake: Oral 600 / 600 Output: Urine 680 / 680 650 / 650 Other: Date of Last Bowel Movement 06/14/18 06/14/18 # Bowel Movements 1 - Constitutional no acute distress - Routine HEENT Exam Head: Present: normocephalic - Routine Neck Exam Present: supple - Routine Respiratory Exam Present: CTA bilaterally - Routine Cardiovascular Exam Present: S1, S2, irregular rhythm - Routine Abdominal Exam Present: soft, normoactive bowel sounds - Routine Extremities Exam Present: edema Results - Lab Results 06/15/18 05:10 06/15/18 05:10 Most recent lab results Calcium 8.2 mg/dL (8.5-10.1) L 06/15/18 05:10 Assessment and Plan - Assessment (1) Acute renal failure Code(s): N17.9 - Acute kidney failure, unspecified Status: Acute (2) Chronic kidney disease, stage IV (severe) Code(s): N18.4 - Chronic kidney disease, stage 4 (severe) Status: Acute (3) Congestive heart disease Code(s): I50.9 - Heart failure, unspecified Status: Acute (4) Hyponatremia Code(s): E87.1 - Hypo-osmolality and hyponatremia Status: Acute - Plan Patient is on Lasix and diuresing, continue to monitor kidney functions At Samsca 15 mg 1 , Follow BMP Continue with Lasix Monitor intake and output Avoid nephrotoxins
[2018-06-15] MEDS: ALPRAZolam 0.5 MG Tablet PO PRN (21:59)
[2018-06-16] MEDS: Heparin - SQ 10,000 UNITS/ML Vial SQ SCH (01:25)
[2018-06-16 06:37] LABS: Baso % (Auto) 0.3 % (0.0-2.0); Eos # (Auto) 0.1 th/mm3 (0.0-0.4); Hematocrit 24.8 % (39.0-51.0); Hemoglobin 8.1 gm/dL (13.0-17.0); Lymph % (Auto) 16.2 % (9.0-44.0); Mean Corpuscular HGB Conc 32.7 % (32.0-36.0); Mean Corpuscular Hemoglobin 30.3 pg (27.0-34.0); Mean Corpuscular Volume 92.7 fL (80.0-100.0); Mean Platelet Volume 8.1 fL (7.0-11.0); Mono # (Auto) 0.5 th/mm3 (0.0-0.9); Mono % (Auto) 9.1 % (0.0-8.0); Neut # (Auto) 4.4 th/mm3 (1.8-7.7); Neut % (Auto) 72.4 % (16.0-70.0); Platelet Count 275 th/mm3 (150-450); Red Blood Count 2.68 mil/mm3 (4.50-5.90); Red Cell Distribution Width 12.6 % (11.6-17.2)
[2018-06-16 06:52] LABS: Potassium 4.6 meq/L (3.5-5.1)
[2018-06-16 06:56] LABS: Calcium 7.8 mg/dL (8.5-10.1)
[2018-06-16 06:57] LABS: Carbon Dioxide 24.2 meq/L (21.0-32.0)
--- NOTE | 2018-06-16 08:50 | P.DCO ---
- Physical Therapy Order: Evaluate and treat, Improve ambulation, Strength and gait training - Home Health Nursing Order: Medical education, CHF education, Medication education-adverse effect, Nursing assessment with vital signs - Certification I have seen patient Boni Thacker on 06/16/18. My clinical findings support the need for the requested home health care services because: Patient has SOB I certify that my clinical findings support that this patient is homebound because: Poor cardiac reserve
[2018-06-16] MEDS: ALPRAZolam 0.5 MG Tablet PO PRN (09:54)
[2018-06-16] MEDS: Finasteride 5 MG Tablet PO SCH (09:54)
[2018-06-16] MEDS: Pantoprazole Sodium 20 MG DR Tablet PO SCH (09:54)
[2018-06-16] MEDS: metroNIDAZOLE 500 MG Tablet PO SCH (09:54)
[2018-06-16] MEDS: Nadolol 20 MG Tablet PO SCH (09:54)
[2018-06-16] MEDS: Sodium Chloride 1 GM Tablet PO SCH (09:54)
[2018-06-16] MEDS: Senna/Docusate Sodium 8.6/50 MG Tablet PO SCH (09:54)
[2018-06-16] MEDS: guaiFENesin 600 MG ER Tablet PO SCH (09:55)
--- NOTE | 2018-06-16 11:31 | P.PNNP ---
Subjective Interval history: Patient is feeling tired Physical Exam Vital signs: Vital Signs 06/15/18 12:00 06/15/18 16:00 06/15/18 20:00 Temperature 96.1 F L 96.4 F L 96.1 F L Pulse Rate 60 63 64 Respiratory Rate 20 20 19 Blood Pressure 155/70 H 142/65 H 142/72 H Pulse Oximetry 100 94 L 96 06/15/18 20:10 06/16/18 00:00 06/16/18 04:00 Temperature 96.1 F L 96 F L Pulse Rate 64 64 Respiratory Rate 20 20 Blood Pressure 159/70 H 160/69 H Pulse Oximetry 98 97 99 06/16/18 08:00 Temperature 96.7 F L Pulse Rate 71 Respiratory Rate 19 Blood Pressure 171/78 H Pulse Oximetry 99 Intake & Output 06/15/18 06/16/18 06/16/18 18:59 06:59 18:59 Intake Total 600 / 600 300 / 300 Output Total 650 / 650 600 / 600 Balance -50 / -50 -300 / -300 Weight 81 kg Intake: Oral 600 / 600 300 / 300 Output: Urine 650 / 650 600 / 600 Other: # Voids 4 Date of Last Bowel Movement 06/14/18 06/14/18 # Bowel Movements 1 - Constitutional no acute distress - Routine Neck Exam Present: supple - Routine Respiratory Exam Present: CTA bilaterally - Routine Cardiovascular Exam Present: S1, S2, irregular rhythm - Routine Abdominal Exam Present: soft - Routine Extremities Exam Present: edema Assessment and Plan - Assessment (1) Acute renal failure Code(s): N17.9 - Acute kidney failure, unspecified Status: Acute (2) Chronic kidney disease, stage IV (severe) Code(s): N18.4 - Chronic kidney disease, stage 4 (severe) Status: Acute (3) Congestive heart disease Code(s): I50.9 - Heart failure, unspecified Status: Acute (4) Hyponatremia Code(s): E87.1 - Hypo-osmolality and hyponatremia Status: Acute - Plan Patient is on Lasix and diuresing, continue to monitor kidney functions Given Samsca 15 mg 1 , Follow BMP Continue with Lasix Monitor intake and output Avoid nephrotoxins Discussed with Dr. Person If discharge can be followed as outpatient
--- NOTE | 2018-06-16 11:53 | P.DS ---
Date of admission: 06/14/18 00:24 Primary care physician: Carmen May MD Brief History from admission: 87-year-old male with a history of CHF, prior OH, CABG in 2017, recent diverticulitis. She presents to the ER overnight complaining of weight gain and associated shortness of breath. Approximately 1 week ago he developed abdominal pain in the left lower quadrant after 1 of his sons recommended increasing seeds in his diet. He went to [facility] and got a CT of the abdomen which showed diverticulitis. He was placed on Flagyl 3 times daily to address this and states that his abdomen is feeling much better. The ordeal however made his stomach upset and caused him to be generally weak. He reduced a few doses of his routine Lasix. After interview his other son mentions to me that he has a habit of skipping doses whenever he feels like it and that rather than gaining 3 or 4 pounds this week he is actually gained 10 pounds over the last 2 weeks at least. He sees Dr. Shay as his razor sharpener. In the last month he had a stress test and echocardiogram neither were of any concern with her findings. At this time he denies any nausea vomiting or diarrhea. He denies any focal deficits, weakness, slurring of speech, imbalance. He denies chest pain. DS: Diagnosis - Discharge Diagnosis (1) Chronic kidney disease, stage IV (severe) Status: Acute (2) Congestive heart disease Status: Acute DS: Medications - Discharge Medications Prescriptions: sodium chloride 1 gm PO BID #14 tab DS: Summary Hospital Course: Acute on chronic diastolic HF exacerbation secondary to noncompliance with fluid and dietary indiscretions. CHF education. Monitor weight. Continue Lasix Chronic kidney disease stage IV with hyponatremia. Improved hyponatremia status post Samsca. Discussed with nephrology continue sodium tabs for limited period of time secondary to heart failure. Avoid nephrotoxins. Seizure precautions. Obstructive sleep apnea Patient has his home CPAP by bedside Anxiety Home dose of Xanax 0.5 3 times daily reconciled Hypertension Losartan added, nifedipine improved on reconciliation Diverticulitis Continue with Flagyl, patient has follow-up scheduled this week with PCP DVT Prophylaxis Heparin - Time Spent with Patient Total time spent providing and/or coordinating discharge services: Greater than 30 minutes - Quality: VTE Deep Vein Thrombosis/Pulmonary Embolism Present on Admission: No Exam Vital signs: Vital Signs 06/15/18 12:00 06/15/18 16:00 06/15/18 20:00 Temperature 96.1 F L 96.4 F L 96.1 F L Pulse Rate 60 63 64 Respiratory Rate 20 20 19 Blood Pressure 155/70 H 142/65 H 142/72 H Pulse Oximetry 100 94 L 96 06/15/18 20:10 06/16/18 00:00 06/16/18 04:00 Temperature 96.1 F L 96 F L Pulse Rate 64 64 Respiratory Rate 20 20 Blood Pressure 159/70 H 160/69 H Pulse Oximetry 98 97 99 06/16/18 08:00 Temperature 96.7 F L Pulse Rate 71 Respiratory Rate 19 Blood Pressure 171/78 H Pulse Oximetry 99 Intake & Output 06/15/18 06/16/18 06/16/18 18:59 06:59 18:59 Intake Total 600 / 600 300 / 300 Output Total 650 / 650 600 / 600 Balance -50 / -50 -300 / -300 Weight 81 kg Intake: Oral 600 / 600 300 / 300 Output: Urine 650 / 650 600 / 600 Other: # Voids 4 Date of Last Bowel Movement 06/14/18 06/14/18 # Bowel Movements 1 Narrative: GENERAL: AAOx3, no acute distress, obese, weak, elderly SKIN: Warm and dry, no rashes. CARDIOVASCULAR: Regular rate and rhythm. No murmur, no gallops, no rubs. RESPIRATORY: Upper airway sounds clear, atelectasis in bilateral bases. No accessory muscle use. GASTROINTESTINAL: Abdomen soft, non-tender, nondistended, normal active bowel sounds. MUSCULOSKELETAL: Extremities without clubbing or cyanosis. No obvious deformities. 1+ edema to lower leg bilaterally NEUROLOGICAL: Awake and alert. No obvious cranial nerve deficits. Motor grossly within normal limits. No focal deficits. Five out of 5 muscle strength in the arms and legs. Normal speech. Results Procedures completed during hospitalization: none Labs on day of discharge: Labs from last 24 hours 06/16/18 06/16/18 05:40 05:40 CBC w Diff Auto diff final WBC 6.0 RBC 2.68 L Hgb 8.1 L Hct 24.8 L MCV 92.7 MCH 30.3 MCHC 32.7 RDW 12.6 Plt Count 275 MPV 8.1 Neut % (Auto) 72.4 H Lymph % (Auto) 16.2 [place] % (Auto) 9.1 H Eos % (Auto) 2.0 Baso % (Auto) 0.3 Neut # (Auto) 4.4 Lymph # (Auto) 1.0 [place] # (Auto) 0.5 Eos # (Auto) 0.1 Baso # (Auto) 0.0 WBC Differential . Differential Comment . Sodium 127 L Potassium 4.6 Chloride 93 L Carbon Dioxide 24.2 Anion Gap 10 BUN 64 H Creatinine 2.80 H Estimated GFR 22 L Random Glucose 130 H Calcium 7.8 L - Impressions ITS Impressions Chest X-Ray 06/13/18 22:57 CONCLUSION: Cardiomegaly. The lungs are grossly clear. Discharge Plan - Discharge Disposition Patient Disposition: 01 Discharge Home - Discharge Condition Condition: Stable - Discharge Order Discharge Orders: Discharge Order (Routine); Ordered 06/16/18 Ordered By: Wesley Person - Physicians Team Primary Care Provider: Carmen May Attending Provider: Wesley Person Other Providers: Marina Kent MD
== END 2018-06-16 14:53 | disposition home or self-care (01) ==
LOC: PH3 22:53 → PHED 22:53 → PHEDA 22:53 → PH3 06-14 01:46
PROVIDERS: ADMIT Internal Medicine; ATTEND Internal Medicine

== ENCOUNTER 2018-06-29 12:03 | Inpatient (IN) ==
[2018-06-29] MEDS ORDERED: Pantoprazole Inj 40 MG Vial IV.PUSH ONE (14:12)
--- NOTE | 2018-06-29 14:43 | XR ---
EXAM DATE: 06/29/2018 2:39 PM EDT AGE/SEX: 87 years / Male INDICATIONS: Bilateral chest pain. CLINICAL DATA: This is the patient's initial encounter. Patient reports that signs and symptoms have been present for 1 day and indicates a pain score of 4/10. MEDICAL/SURGICAL HISTORY: Chronic obstructive pulmonary disease. Congestive heart failure. Re nal failure, chronic. CABG. COMPARISON: [facility], CHEST 1V SINGLE AP, 06/13/2018. . FINDINGS: Cardiomegaly and median sternotomy wires and CABG markers are noted. There is linear atelectasis at t he left lung base. Right lung is clear. CONCLUSION: Left basilar atelectasis. Electronically signed by: Bo Vyas MD 06/29/2018 2:42 PM EDT
--- NOTE | 2018-06-29 14:46 | ED ---
HPI General Chief Complaint: Recheck/Abnormal Lab/Rx Stated Complaint: doctor sent Time Seen by Provider: 06/29/18 13:53 Source: patient and family Mode of arrival: ambulatory Limitations: no limitations History of Present Illness HPI narrative: 87 yo male here for evaluation of low hemoglobin. Seen by nurse on friday who took blood from patient. He received a call yesterday about coming to ER due to low hemoglobin and requiring transfusion. Was hoping to go tomorrow to his doctor, but has been feeling weak and decided to come. No blood thinner use. No black stools. No urinary issues. Significant history of stage 4 CKD, CHF. Has never received blood before. No other medical issues. Only symptom at this time is feeling "weak". No pain. Related Data Home Medications Medication Instructions Recorded Confirmed albuterol sulfate [ProAir HFA] 2 puff INHALATION Q4-6H PRN 06/13/18 06/29/18 alprazolam 0.5 mg PO TID PRN 06/13/18 06/29/18 finasteride 5 mg PO DAILY 06/13/18 06/29/18 furosemide 40 mg PO DAILY 06/13/18 06/29/18 glipizide 5 mg PO BID 06/13/18 06/29/18 irbesartan 75 mg PO BID 06/13/18 06/29/18 metronidazole 500 mg PO TID 06/13/18 06/29/18 nadolol 40 mg PO DAILY 06/13/18 06/29/18 nifedipine 90 mg PO DAILY 06/13/18 06/29/18 omeprazole 20 mg PO BID 06/13/18 06/29/18 rosuvastatin 5 mg PO DAILY 06/13/18 06/29/18 terazosin 5 mg PO HS 06/13/18 06/29/18 Previous Rx's Medication Instructions Recorded sodium chloride 1 gm PO BID #14 tab 06/15/18 Allergies Allergy/AdvReac Type Severity Reaction Status Date / Time levofloxacin [From Levaquin] Allergy Rash Verified 06/13/18 23:11 Review of Systems ROS: all other systems reviewed are negative [facility] Medical History Medical History Anxiety (Acute) BPH (benign prostatic hyperplasia) (Acute) CAD (coronary artery disease) (Acute) HLD (hyperlipidemia) (Acute) History of congestive heart failure (Acute) History of diverticulitis (Acute) Hx of diabetes mellitus (Acute) NILAM on CPAP (Acute) Surgical History Surgical History Hx of CABG (Acute) Hx of cholecystectomy (Acute) Family History Family History Other Coronary artery disease Hypertension Social History Social History Substance History: No History of Abuse Second Hand Smoke Exposure: No Smoking Status: Never smoker How Often Do You Have a Drink Containing Alcohol: Never Recent Travel in [facility] within the Last 8 Weeks: No Recent Out of Country Travel within the Last 8 Weeks: No Immunization History Tetanus Immunization: Unable to Assess Hx Influenza Vaccine This Season: No Exam Narrative Exam Narrative: GENERAL: SKIN: Warm and dry. HEAD: Atraumatic. Normocephalic. EYES: Pupils equal and round. No scleral icterus. No injection or drainage. ENT: No nasal bleeding or discharge. Mucous membranes pink and moist. Tongue is midline. No uvula deviation. NECK: Trachea midline. No JVD. CARDIOVASCULAR: Regular rate and rhythm. RESPIRATORY: No accessory muscle use. Clear to auscultation. Breath sounds equal bilaterally. GASTROINTESTINAL: Abdomen soft, non-tender, nondistended. Hepatic and splenic margins not palpable. Rectal exam done with director cpg at all times. No obvious bleeding or hemorrhoid but hemocult positive. MUSCULOSKELETAL: Extremities without clubbing, cyanosis, or edema. No obvious deformities. Full ROM of the upper and lower extremities bilaterally. 2+ pulses. NEUROLOGICAL: Awake and alert. No obvious cranial nerve deficits. Motor grossly within normal limits. Five out of 5 muscle strength in the arms and legs. Normal speech. PSYCHIATRIC: Appropriate mood and affect; insight and judgment normal. Procedures Hemaprompt Stool Procedural Steps Taken: specimen placed in appropriate test area, developer placed on specimen and control areas and controls appropriately positive and negative Hemaprompt Stool Result: positive Course Initial Documented Vital Signs Temperature 97.6 F 06/29/18 12:23 Pulse Rate 74 06/29/18 12:23 Respiratory Rate 15 06/29/18 12:23 Blood Pressure 175/77 H 06/29/18 12:23 Pulse Oximetry 96 06/29/18 12:23 Last Documented Vital Signs Temperature 97.6 F 06/29/18 12:23 Pulse Rate 61 06/29/18 16:34 Respiratory Rate 18 06/29/18 16:34 Blood Pressure 152/79 H 06/29/18 16:34 Pulse Oximetry 99 06/29/18 16:34 Medical Decision Making BENJA Attestation BENJA supervised visit: Yes Attestation: I, Dr. lopes, have reviewed the advance practice practitioner's documentation and am in agreement, met with the patient face to face, made the diagnosis, and the medical decision making was done by me. *My assessment and Findings: 87 y/o male presents with low outpatient hemoglobin level. Guaiac is positive. Patient agrees to admission for further workup and care. MDM Narrative Medical decision making narrative: 87 yo male here for anemia. Patient properly examined. Hemocult positive. labs and imaging ordered. Patient given protonix, will require likely blood transfusion depending on hemoglobin. My attending Dr Lopes aware of findings and agrees with plan. Labs showed better H/H than from blood on friday. Per patient no history of GI bleed in the past. Unclear if patient has an EGD which he has had a colonoscopy in the past. At this time I will not transfuse right now as patient takes no blood thinners but we do recommend admission for further evaluation for the possible GI bleed. Patient agrees with this. Case was discussed with Dr. Mercado agrees to admission. My attending Dr. Lopes was made aware of all findings and agrees with admission. Medical Screen Exam Complete: Yes Emergency Medical Condition: Yes Differential Diagnosis Differential Diagnosis: GI bleed vs CKD vs anemia vs symptomatic anemia Medical Records Medical records reviewed: Yes I reviewed the patient's medical records. Lab Data Lab results reviewed: Yes I reviewed the patient's lab results. Lab results narrative: Coags WNL Result diagrams: 06/29/18 14:21 06/29/18 14:21 Lab Results 06/29/18 06/29/18 06/29/18 Range/Units 14:21 14:21 14:21 WBC 7.9 (4.0-11.0) th/mm3 RBC 2.77 L (4.50-5.90) mil/mm3 Hgb 8.6 L (13.0-17.0) gm/dL Hct 25.6 L (39.0-51.0) % MCV 92.4 (80.0-100.0) fL MCH 31.1 (27.0-34.0) pg MCHC 33.7 (32.0-36.0) % RDW 14.1 (11.6-17.2) % Plt Count 292 (150-450) th/mm3 MPV 8.3 (7.0-11.0) fL Neut % (Auto) 80.4 H (16.0-70.0) % Lymph % (Auto) 9.5 (9.0-44.0) % [place] % (Auto) 8.3 H (0.0-8.0) % Eos % (Auto) 1.0 (0.0-4.0) % Baso % (Auto) 0.8 (0.0-2.0) % Neut # (Auto) 6.3 (1.8-7.7) th/mm3 Lymph # (Auto) 0.7 L (1.0-4.8) th/mm3 [place] # (Auto) 0.7 (0.0-0.9) th/mm3 Eos # (Auto) 0.1 (0.0-0.4) th/mm3 Baso # (Auto) 0.1 (0.0-0.2) th/mm3 WBC Differential . Differential Comment Auto diff final PT 10.8 (9.8-11.6) sec INR 1.1 Ratio APTT 29.1 (24.3-30.1) sec Sodium 133 L (136-145) meq/L Potassium 5.0 (3.5-5.1) meq/L Chloride 100 (98-107) meq/L Carbon Dioxide 23.0 (21.0-32.0) meq/L Anion Gap 10 (5-15) meq/L BUN 55 H (7-18) mg/dL Creatinine 2.73 H (0.60-1.30) mg/dL Estimated GFR 22 L (>89) mL/min Random Glucose 217 H (74-106) mg/dL Calcium 8.5 (8.5-10.1) mg/dL Total Bilirubin 0.3 (0.2-1.0) mg/dL AST 11 L (15-37) U/L ALT 22 (12-78) U/L Alkaline Phosphatase 89 (45-117) U/L B-Natriuretic Peptide (0-100) pg/mL Total Protein 7.1 (6.4-8.2) g/dL Albumin 3.1 L (3.4-5.0) g/dL Blood Type Antibody Screen 06/29/18 06/29/18 Range/Units 14:21 14:21 WBC (4.0-11.0) th/mm3 RBC (4.50-5.90) mil/mm3 Hgb (13.0-17.0) gm/dL Hct (39.0-51.0) % MCV (80.0-100.0) fL MCH (27.0-34.0) pg MCHC (32.0-36.0) % RDW (11.6-17.2) % Plt Count (150-450) th/mm3 MPV (7.0-11.0) fL Neut % (Auto) (16.0-70.0) % Lymph % (Auto) (9.0-44.0) % [place] % (Auto) (0.0-8.0) % Eos % (Auto) (0.0-4.0) % Baso % (Auto) (0.0-2.0) % Neut # (Auto) (1.8-7.7) th/mm3 Lymph # (Auto) (1.0-4.8) th/mm3 [place] # (Auto) (0.0-0.9) th/mm3 Eos # (Auto) (0.0-0.4) th/mm3 Baso # (Auto) (0.0-0.2) th/mm3 WBC Differential Differential Comment PT (9.8-11.6) sec INR Ratio APTT (24.3-30.1) sec Sodium (136-145) meq/L Potassium (3.5-5.1) meq/L Chloride (98-107) meq/L Carbon Dioxide (21.0-32.0) meq/L Anion Gap (5-15) meq/L BUN (7-18) mg/dL Creatinine (0.60-1.30) mg/dL Estimated GFR (>89) mL/min Random Glucose (74-106) mg/dL Calcium (8.5-10.1) mg/dL Total Bilirubin (0.2-1.0) mg/dL AST (15-37) U/L ALT (12-78) U/L Alkaline Phosphatase (45-117) U/L B-Natriuretic Peptide 488 H (0-100) pg/mL Total Protein (6.4-8.2) g/dL Albumin (3.4-5.0) g/dL Blood Type O Positive Antibody Screen Negative Imaging Data Attestation: I personally reviewed and interpreted this imaging study as follows : Radiologist's impression: Chest X-Ray 06/29/18 14:12 CONCLUSION: Left basilar atelectasis. Discharge Plan Discharge Disposition Patient Disposition: 30 Still Patient Discharge Details Diagnosis: Acute GI bleeding, Anemia, CKD (chronic kidney disease) Physicians Team ED Provider: Jessica Lopes ED Midlevel Provider: Afshin De La Fuente Primary Care Provider: Carmen May Attending Provider: Waldo Mercado Status ED Status: Admitted Observation Patient
[2018-06-29] MEDS ORDERED: Pantoprazole Inj 80 MG in Sodium Chlor 0.9% Inj 100 ML IV.CONT SCH (15:00)
[2018-06-29 15:19] LABS: Baso # (Auto) 0.1 th/mm3 (0.0-0.2); Baso % (Auto) 0.8 % (0.0-2.0); Eos # (Auto) 0.1 th/mm3 (0.0-0.4); Hematocrit 25.6 % (39.0-51.0); Hemoglobin 8.6 gm/dL (13.0-17.0); Lymph # (Auto) 0.7 th/mm3 (1.0-4.8); Lymph % (Auto) 9.5 % (9.0-44.0); Mean Corpuscular HGB Conc 33.7 % (32.0-36.0); Mean Corpuscular Hemoglobin 31.1 pg (27.0-34.0); Mean Corpuscular Volume 92.4 fL (80.0-100.0); Mean Platelet Volume 8.3 fL (7.0-11.0); Mono # (Auto) 0.7 th/mm3 (0.0-0.9); Mono % (Auto) 8.3 % (0.0-8.0); Neut # (Auto) 6.3 th/mm3 (1.8-7.7); Neut % (Auto) 80.4 % (16.0-70.0); Platelet Count 292 th/mm3 (150-450); Red Blood Count 2.77 mil/mm3 (4.50-5.90); Red Cell Distribution Width 14.1 % (11.6-17.2); White Blood Count 7.9 th/mm3 (4.0-11.0)
[2018-06-29 15:26] LABS: Activated Partial Thrombo Time 29.1 sec (24.3-30.1); INR 1.1 Ratio; Prothrombin Time 10.8 sec (9.8-11.6)
[2018-06-29 15:33] LABS: Alanine Aminotransferase 22 U/L (12-78); Albumin 3.1 g/dL (3.4-5.0); Anion Gap 10 meq/L (5-15); Aspartate Aminotransferase 11 U/L (15-37); Blood Urea Nitrogen 55 mg/dL (7-18); Calcium 8.5 mg/dL (8.5-10.1); Chloride 100 meq/L (98-107); Glomerular Filtration Rate 22 mL/min (>89); Glucose,Random 217 mg/dL (74-106); Sodium 133 meq/L (136-145)
[2018-06-29 15:35] LABS: Alkaline Phosphatase 89 U/L (45-117); Total Protein 7.1 g/dL (6.4-8.2)
--- NOTE | 2018-06-29 16:50 | P.HPIM ---
History of Present Illness Service: [facility] Primary Care Physician: Carmen May MD Chief Complaint: GI bleed History of Present Illness: Mr. Thacker is a 87 yo M with PMH CAD (s/p CABG), CHF, CKD, recent diverticulitis who presents due to symptoms of fatigue and shortness of breath. He states that he was advised by [facility] nurse to go to ED for blood transfusion and evaluation (due to outpatient Hgb 7.9). patient states that he was recently treated for diverticulitis with Flagyl [ last admitted 06/14 per EMR]. He reports that he has been weak around this time and also has had black stools several weeks ago which has since improved. He has been having ~daily BM and had diarrhea today which was not black. Patient reports increased weakness; he gets short of breath when walking 135 steps. Patient feels that these symptoms have been present for about a month and that they are associated with anemia. Patient also reports occasional chest discomfort over the past several months which is not clearly associated with exertion. He states that nitroglycerin helps when he gets; he has used this only 5 times over the past 6 months. Patient does not report chest pain today. He states he was cleared by Dr. Raymond to play golf from a cardiac standpoint and has an upcoming appointment this week. He feels that his weakness is preventing him from pursing activities and therapy at home.. patient also reports some shortness of breath. He denies recent increase in leg swelling. Patient has not had recent changes in urination. He has upcoming appointment with Dr. Kent next week. Interval: Patient with mild HTN in ED. Hgb 8.6. Cr 2.73 which is at baseline. BNP 488. Hemoccult positive. Patient given Protonix; decision made to admit patient a and have GI consultation PMH- CAD (s/p CABG)- sees Dr. Raymond, CHF, CKD stage 4- sees Libertad Almodovar eye blindness- shunt, CPAP. DM, no recent medications PSH- Cholecystectomy, CABG. Colonoscopy last year with Dr. Beltran SH- lives alone FH- mom with colon cancer Review of Systems All other systems reviewed negative except as stated in HPI Constitutional: Reports fatigue, Reports lack of energy, Denies chills, Denies fever(s) Eyes: Reports loss of vision, Reports other (left eye blindness chronic) Cardiovascular: Reports chest pain (not current; recent), Reports shortness of breath with activity Respiratory: Reports shortness of breath with activity, Denies cough Gastrointestinal: Reports loose stools (today), Denies abdominal pain Genitourinary: Denies urinary incontinence, Denies urinary urgency Musculoskeletal: Denies back pain, Denies numbness Skin/Breast: Denies new lesions, Denies rash Neurologic: Denies abnormal speech, Denies frequent falls Hematologic/Lymphatic: Denies easy bleeding, Denies easy bruising PMFSH - History History Provided By: Patient, Family Member - Medical History Medical History: Medical History (Last Reviewed 06/29/18 @ 14:40 by LYNETTE Giron) Anxiety BPH (benign prostatic hyperplasia) CAD (coronary artery disease) HLD (hyperlipidemia) History of congestive heart failure History of diverticulitis Hx of diabetes mellitus NILAM on CPAP - Surgical History Surgical History: Surgical History (Last Reviewed 06/29/18 @ 14:40 by LYNETTE Giron) Hx of CABG Hx of cholecystectomy - Family History Family History: Family History (Last Reviewed 06/29/18 @ 14:40 by LYNETTE Giron) Other Coronary artery disease Hypertension - Tobacco History Second Hand Smoke Exposure: No Smoking Status: Never smoker - Alcohol History How Often Do You Have a Drink Containing Alcohol: Never - Substance Use History Substance History: No History of Abuse - Travel History Recent Travel in the [place] Within the Last 8 Weeks: No Recent Travel Out of the Country Within the Last 8 Weeks: No - Immunization History Tetanus Immunization: Unable to Assess Hx Influenza Vaccine This Season: No Medications and Allergies Active Medications: Active Medications Pantoprazole Sodium 80 mg/ (Sodium Chloride) 100 mls @ 10 mls/hr IV.CONT CONT ANGLE Allergies Allergy/AdvReac Type Severity Reaction Status Date / Time levofloxacin [From Levaquin] Allergy Rash Verified 06/13/18 23:11 Home Medications Medication Instructions Recorded Confirmed Type albuterol sulfate [ProAir HFA] 2 puff INHALATION Q4-6H PRN 06/13/18 06/29/18 History alprazolam 0.5 mg PO TID PRN 06/13/18 06/29/18 History finasteride 5 mg PO DAILY 06/13/18 06/29/18 History furosemide 40 mg PO DAILY 06/13/18 06/29/18 History glipizide 5 mg PO BID 06/13/18 06/29/18 History irbesartan 75 mg PO BID 06/13/18 06/29/18 History metronidazole 500 mg PO TID 06/13/18 06/29/18 History nadolol 40 mg PO DAILY 06/13/18 06/29/18 History nifedipine 90 mg PO DAILY 06/13/18 06/29/18 History omeprazole 20 mg PO BID 06/13/18 06/29/18 History rosuvastatin 5 mg PO DAILY 06/13/18 06/29/18 History terazosin 5 mg PO HS 06/13/18 06/29/18 History alprazolam [Xanax] 0.5 mg PO HS PRN 06/29/18 06/29/18 History Exam Vital signs: Vital Signs 06/29/18 12:23 06/29/18 13:58 06/29/18 16:34 Temperature 97.6 F Pulse Rate 74 61 Respiratory Rate 15 18 Blood Pressure 175/77 H 152/79 H Pulse Oximetry 96 100 99 Intake & Output 06/28/18 06/29/18 06/29/18 18:59 06:59 18:59 Weight 77.111 kg Narrative: General: no distress; resting in bed Eyes: left eye closed. R EOM grossly I Neck: No appreciated thyromegaly or lymphadenopathy CV: regular rate and rhythm. Normal peripheral perfusion. Mild bilateral LE edema Resp: CTAB bilaterally; no suggestion of pulmonary edema MSK: Grossly normal ROM and motor function Neuro: grossly normal CN; grossly normal peripheral motor/sensory function Results - Labs CBC & Chem 7: 06/29/18 14:21 06/29/18 14:21 Labs: Short CBC 06/29/18 Range/Units 14:21 WBC 7.9 (4.0-11.0) th/mm3 Hgb 8.6 L (13.0-17.0) gm/dL Hct 25.6 L (39.0-51.0) % Plt Count 292 (150-450) th/mm3 BMP 06/29/18 14:21 Sodium 133 L Potassium 5.0 Chloride 100 Carbon Dioxide 23.0 BUN 55 H Creatinine 2.73 H Calcium 8.5 Liver Function 06/29/18 Range/Units 14:21 Total Bilirubin 0.3 (0.2-1.0) mg/dL AST 11 L (15-37) U/L ALT 22 (12-78) U/L Alkaline Phosphatase 89 (45-117) U/L Albumin 3.1 L (3.4-5.0) g/dL - Imaging Impressions Chest X-Ray 06/29/18 14:12 CONCLUSION: Left basilar atelectasis. Caprini VTE Risk Assessment Caprini VTE Risk Assessment: Moderate/High Risk (score >= 2) Caprini Risk Assessment Model: Point Value = 1 Point Value = 2 Point Value = 3 Point Value = 5 Age 41-60 Minor surgery BMI > 25 kg/m2 Swollen legs Varicose veins or History of unexplained or recurrent spontaneous Oral contraceptives or hormone replacement Sepsis (< 1 month) Serious lung disease, including pneumonia (< 1 month) Abnormal pulmonary function Acute myocardial infarction Congestive heart failure (< 1 month) History of inflammatory bowel disease Medical patient at bed rest Age 61-74 Arthroscopic surgery Major open surgery (> 45 min) Laparoscopic surgery (> 45 min) Malignancy Confined to bed (> 72 hours) Immobilizing plaster cast Central venous access Age >= 75 History of VTE Family history of VTE Factor V Leiden Prothrombin [id number] Lupus anticoagulant Anticardiolipin antibodies Elevated serum homocysteine Heparin-induced thrombocytopenia Other congenital or acquired thrombophilia Stroke (< 1 month) Elective arthroplasty Hip, pelvis, or leg fracture Acute spinal cord injury (< 1 month) Prophylaxis Regimen: Total Risk Factor Score Risk Level Prophylaxis Regimen 0-1 Low Early ambulation 2 Moderate Order ONE of the following: *Sequential Compression Device (SCD) *Heparin 5000 units SQ BID 3-4 Higher Order ONE of the following medications: *Heparin 5000 units SQ TID *Enoxaparin/Lovenox 40 mg SQ daily (WT < 150 kg, CrCl > 30 mL/min) *Enoxaparin/Lovenox 30 mg SQ daily (WT < 150 kg, CrCl > 10-29 mL/min) *Enoxaparin/Lovenox 30 mg SQ BID (WT < 150 kg, CrCl > 30 mL/min) AND/OR *Sequential Compression Device (SCD) 5 or more Highest Order ONE of the following medications: *Heparin 5000 units SQ TID (Preferred with Epidurals) *Enoxaparin/Lovenox 40 mg SQ daily (WT < 150 kg, CrCl > 30 mL/min) *Enoxaparin/Lovenox 30 mg SQ daily (WT < 150 kg, CrCl > 10-29 mL/min) *Enoxaparin/Lovenox 30 mg SQ BID (WT < 150 kg, CrCl > 30 mL/min) AND *Sequential Compression Device (SCD) Assessment and Plan - Plan Mr. Thacker is a 87 yo M with PMH CAD (s/p CABG), CHF, CKD, recent diverticulitis who presents due to symptoms of fatigue and shortness of breath. He states that he was advised by [facility] nurse to go to ED for blood transfusion and evaluation (due to outpatient Hgb 7.9). Anemia Impression: Hgb 8.6 today; 7.9 on recent outpatient labs. Per EMR, baseline of ~ 10 02/2018. Normal MCV. Associated with black stool/Hemoccult positive. No concern for active bleeding currently. Patient strongly associates current fatigue with anemia -GI consulted -Discussed extensively the potential improvement in fatigue with transfusion vs risks of worsening CHF and infection; patient elected for transfusion -Will transfuse 1 U pRBC and give 20mg IV Lasix Blood in stool Impression: Recent diverticulitis. Colonoscopy last year normal. No prior EGD. No abdominal pain reported -Continue Pantoprazole 40mg IV BID -Will monitor VS, CBC -Will give IV NS and make NPO CAD/CHF Impression: BNP in 400's on admission. Mild LE edema and clear pulmonary exam. no recent weight gain. Periodic chest pain relieved with nitroglycerin over past several months Troponin wnl on admission; no EKG concerns -Will keep on telemetry -Will continue home Lasix 40mg daily -Will consult Dr. Raymond per patient request since recent chest pain and patient has upcoming appointment -Continue home Nadolol, Losartan/Irbesartan, Atorvastatin, Nifedipine -ASA held for GI bleed CKD Impression: Cr chronically ~2.5; sees Dr. Kent -Continue home Lasix 40mg daily -Monitor Cr and urine output DM Impression: patient does not take home Glipizide -Will check Accuchecks and give insulin if needed DVT PPX -SCD's for GI bleed Code Status: DNR Discussed Condition With: patient/son
[2018-06-29] MEDS ORDERED: Acetaminophen 325 MG Tablet PO PRN (17:14)
[2018-06-29] MEDS ORDERED: ALPRAZolam 0.5 MG Tablet PO PRN ×2 (17:28→21:27)
[2018-06-29] MEDS ORDERED: Dextrose 50% in Water 50 ML Vial IV.PUSH PRN (17:37)
[2018-06-29] MEDS ORDERED: Sodium Chlor 0.9% Inj 250 ML IV.SIG SCH (18:00)
[2018-06-29] MEDS: Pantoprazole Inj 40 MG Vial IV.PUSH SCH (19:04)
[2018-06-29] MEDS ORDERED: IRBESARTAN 75 MG PO SCH (21:00)
[2018-06-29] MEDS ORDERED: ALPRAZolam 0.5 MG Tablet PO ONE (23:04)
[2018-06-30] MEDS: Pantoprazole Inj 40 MG Vial IV.PUSH SCH ×2 (05:58→17:41)
--- NOTE | 2018-06-30 06:43 | ECG ---
Date Performed: 06/29/2018 Time Performed: 22:21:46 PTAGE: 87 years EKG: Sinus rhythm WITH FIRST DEGREE AV BLOCK NONSPECIFIC INTRAVENTRICULAR CONDUCTION DELAY MINIMAL VOLTAGE CRITERIA FO R LVH, CONSIDER NORMAL VARIANT INFERIOR MYOCARDIAL INFARCTION , OF INDETERMINATE AGE ANTEROSEPTAL JUAN CARDIAL INFARCTION , OF INDETERMINATE AGE ABNORMAL ECG PREVIOUS TRACING : 06/14/2018 12.05 No change from previous tracing noted. DOCTOR: Rc Russo Interpretating Date/Time 06/30/2018 06:43:21
[2018-06-30 07:12] LABS: Baso % (Auto) 0.6 % (0.0-2.0); Eos # (Auto) 0.1 th/mm3 (0.0-0.4); Eos % (Auto) 1.4 % (0.0-4.0); Hematocrit 26.9 % (39.0-51.0); Hemoglobin 9.3 gm/dL (13.0-17.0); Lymph # (Auto) 0.7 th/mm3 (1.0-4.8); Lymph % (Auto) 10.9 % (9.0-44.0); Mean Corpuscular HGB Conc 34.7 % (32.0-36.0); Mean Corpuscular Volume 89.3 fL (80.0-100.0); Mono # (Auto) 0.5 th/mm3 (0.0-0.9); Mono % (Auto) 7.8 % (0.0-8.0); Neut # (Auto) 4.9 th/mm3 (1.8-7.7); Neut % (Auto) 79.3 % (16.0-70.0); Platelet Count 241 th/mm3 (150-450); Red Blood Count 3.01 mil/mm3 (4.50-5.90); Red Cell Distribution Width 14.6 % (11.6-17.2); White Blood Count 6.2 th/mm3 (4.0-11.0)
[2018-06-30] MEDS ORDERED: Epoetin Alfa Inj 4,000 UNIT/ML Vial SQ ONE (07:32)
[2018-06-30 07:37] LABS: Alanine Aminotransferase 19 U/L (12-78); Albumin 2.8 g/dL (3.4-5.0); Anion Gap 12 meq/L (5-15); Aspartate Aminotransferase 12 U/L (15-37); Blood Urea Nitrogen 53 mg/dL (7-18); Calcium 8.5 mg/dL (8.5-10.1); Carbon Dioxide 21.2 meq/L (21.0-32.0); Chloride 102 meq/L (98-107); Glomerular Filtration Rate 24 mL/min (>89); Glucose,Random 215 mg/dL (74-106); Potassium 4.5 meq/L (3.5-5.1); Sodium 135 meq/L (136-145)
[2018-06-30 07:40] LABS: Alkaline Phosphatase 93 U/L (45-117); Total Protein 6.5 g/dL (6.4-8.2)
[2018-06-30] MEDS: Finasteride 5 MG Tablet PO SCH (08:58)
[2018-06-30] MEDS: Nadolol 40 MG Tablet PO SCH (08:58)
[2018-06-30] MEDS ORDERED: Furosemide 40 MG Tablet PO SCH (09:00)
[2018-06-30] MEDS ORDERED: ROSUVASTATIN 5 MG PO SCH (09:00)
--- NOTE | 2018-06-30 11:35 | MB ---
cc: Ariel Raymond MD DATE: 06/30/2018 REASON FOR CONSULTATION: Shortness of breath. PRIMARY CARE PHYSICIAN: Carmen May MD. REFERRING PHYSICIAN: Walod Mercado MD. HISTORY: Mr. Thacker is an 87-year-old white gentleman well-known to me with history of ASHD, ischemic heart disease, prior CABG, CKD, diabetes mellitus type 2, hypertensive heart disease, and chronic anemia. The patient has been feeling tired, weak, and short of breath over the past 3-4 weeks. He called my service yesterday and spoke to my nurse because of a recent hemoglobin of 7.9. His hemoglobins have been running in the 8-9 range. It was recommended that he follow up with his physicians today as an outpatient to determine whether blood transfusion or other therapy would be helpful to raise his hemoglobin and improve his symptoms. Instead of that, he decided to go to the emergency room yesterday in hopes that they would take care of it. He was seen in the emergency room and admitted for further workup. He did receive 1 unit of packed red blood cells last night. His hemoglobin this morning is 9.3. He denies any chest pains. He says the shortness of breath has been chronic and has not increased over the past 24 hours. He has been taking all of his medications as directed. Here, his blood pressure has been running high and his lower extremity edema has been stable. He denies orthopnea or PND type symptoms. He is currently lying flat in bed and comfortable. PAST MEDICAL HISTORY: As mentioned above. He had a hospitalization for similar complaints back in 02/2018. He has had a history of chronic diastolic congestive heart failure, renal insufficiency, COPD, sleep apnea syndrome and uses CPAP, and obesity. He did have what was felt to be a type 2 myocardial infarction back in 01/2014. PAST SURGICAL HISTORY: Includes a CABG x5 vessels in 2006, hernia repair 02/17/2014, cholecystectomy 02/17/2014, basal cell carcinoma removed. ALLERGIES: IODINE, LEVOFLOXACIN, POTASSIUM IODIDE. MEDICATIONS: Tylenol 650 mg q.4 hours p.r.n., albuterol, Ventolin inhaler 2 puffs q.6 hours p.r.n., DuoNebs 8 hours p.r.n., Xanax 0.5 mg t.i.d. p.r.n., Xanax 0.5 mg at bedtime p.r.n., atorvastatin 10 mg p.o. daily, Proscar 5 mg daily, Lasix 40 mg p.o. daily, Corgard 40 mg p.o. daily, Procardia XL 90 mg daily, Zofran and Protonix p.r.n., Hytrin 5 mg at bedtime. SOCIAL HISTORY: The patient denies tobacco, alcohol, or illicit drug use. REVIEW OF SYSTEMS: Chronic lower extremity edema, stable. Denies palpitations, lightheadedness, or syncopal episodes. Denies any bleeding or clotting disorders. Except for that mentioned in the HPI, his complete 12-point review of systems is otherwise negative. PHYSICAL EXAMINATION: GENERAL: Elderly, overweight, white male lying in bed in no distress at this time. VITAL SIGNS: Blood pressure 177/82 mmHg, heart rate is 65 and regular, respiratory rate 18, temperature 97.2, oxygen saturation is 97% on room air. HEENT: Head is normocephalic and atraumatic. Pupils equal, round, reactive to light. Sclerae are anicteric. Extraocular movements intact. NECK: Supple. There is no adenopathy. No jugular venous distention at 30 degrees. Carotid upstrokes normal. No bruits. Thyroid exam is normal. LUNGS: Clear. HEART: PMI is not displaced. S1, S2 are normal. No murmurs, gallops, clicks, or rubs. ABDOMEN: Obese. Bowel sounds present. Soft, nontender. No hepatosplenomegaly, masses, or bruits. EXTREMITIES: No cyanosis or clubbing. There is plus 1 pretibial edema bilaterally. Perfusion is adequate in the upper and lower extremities. There are no femoral bruits. NEUROLOGIC: Nonfocal. DIAGNOSTIC DATA: EKG on admission shows a sinus rhythm, rate 63, old anteroseptal infarct, old inferior infarct, abnormal EKG. Compared to an EKG available from 06/14/2018, there is no significant change. There has been no change on serial EKGs since admission. For historical information he had an echocardiogram 03/09/2018, in my office that showed moderate concentric LVH, left ventricular ejection fraction 63%. Left ventricular diastolic dysfunction. Moderate left atrial enlargement, with mild right atrial enlargement. Small PFO with [id number] shunting. Aortic sclerosis with +1 AI. Moderate +2 MR. Moderate +2 TR. Right ventricular systolic pressure elevated at 50 mmHg. Dilated right ventricle with preserved function. A pharmacologic stress-MPI performed 03/11/2018, was an abnormal study showing a dilated, right ventricle, but otherwise normal left ventricular function with an ejection fraction of 63%. No regional wall motion abnormalities, ischemia, or infarct identified. Labs: CBC this morning: White count 6.2. Hemoglobin 9.3, up from 8.6 yesterday evening. Platelet count 241,000. Coags are normal. Chemistries: Sodium 135, potassium 4.5, chloride 102, BUN 53, creatinine 2.53, glucose 205. AST 12. BNP 488. Troponin I less than 0.02. Chest x-ray: Left basilar atelectasis. Cardiomegaly with median sternotomy wires and CABG markers noted. Right lung is clear. IMPRESSION: 1. Chronic dyspnea on exertion, likely multifactorial. 2. History of chronic diastolic heart failure, currently compensated. 3. Ischemic heart disease, status post coronary artery bypass grafting. Recent nuclear stress test negative for ischemia. 4. Pulmonary hypertension. 5. Chronic kidney disease. 6. Chronic anemia. 7. Hypertensive heart disease, needs more aggressive control. 8. Diabetes mellitus type 2. 9. Obesity. 10. Chronic bilateral lower extremity edema. RECOMMENDATIONS: I think the patient is compensated from a cardiac standpoint at this time. The shortness of breath is likely due to his underlying pulmonary hypertension and anemia. He had reports of mildly heme positive stools in the ER. Gastroenterology consultation is pending. I think he needs possible GI bleeding ruled out, but I think his chronic anemia is most likely secondary to his chronic kidney disease. I have given him a dose of Epogen 4000 units today and he may need to be placed on this over the next couple of weeks. I would recommend a hemoglobin of at least 10 g to improve his symptoms, considering all his underlying medical problems and ischemic heart disease. I will add clonidine 0.1 mg p.o. t.i.d. to his current regimen for blood pressure control. I will follow up with him tomorrow. Thank you for allowing me to participate in the care of this patient. Ariel B. Barettella, MD MBB/eddie , 11:01 AM , 11:18 AM [id number]
--- NOTE | 2018-06-30 12:16 | P.PN ---
Subjective Interval history: Follow-up visit for symptomatic anemia, black stools, CKD and CHF. Patient reports that he has been ambulating and doing well. Continues to complain of ongoing dizziness, reports that this has been chronic ever since he was diagnosed with congestive heart failure. He denies any nausea, vomiting, diarrhea, black or bloody stools, shortness of breath, cough fevers or chills. Patient endorses constipation requesting Catrina-Colace for this. Physical Exam Vital signs: Vital Signs 06/29/18 12:23 06/29/18 13:58 06/29/18 16:34 Temperature 97.6 F Pulse Rate 74 61 Respiratory Rate 15 18 Blood Pressure 175/77 H 152/79 H Pulse Oximetry 96 100 99 06/29/18 17:34 06/29/18 18:23 06/29/18 20:00 Temperature 96.6 F L 97 F L Pulse Rate 60 67 Respiratory Rate 17 22 Blood Pressure 167/77 H 184/78 H Pulse Oximetry 99 97 98 06/29/18 21:00 06/29/18 21:15 06/30/18 00:00 Temperature 96.4 F L 97.2 F L 97.3 F L Pulse Rate 68 64 70 Respiratory Rate 20 20 20 Blood Pressure 175/78 H 152/72 H 174/77 H Pulse Oximetry 97 06/30/18 00:21 06/30/18 04:00 06/30/18 08:00 Temperature 97.9 F 97.2 F L Pulse Rate 78 66 65 Respiratory Rate 20 20 18 Blood Pressure 171/79 H 177/82 H Pulse Oximetry 98 97 06/30/18 10:13 Temperature Pulse Rate Respiratory Rate Blood Pressure Pulse Oximetry 97 Intake & Output 06/29/18 06/30/18 06/30/18 18:59 06:59 18:59 Intake Total 640 / 640 Balance 640 / 640 Weight 77.111 kg 76.6 kg Intake: Oral 240 / 240 Intake (Blood Product) Amt 400 / 400 Rbc As-3 Leukoreduced Unit 400 / 400 [id number] Other: # Voids 3 Date of Last Bowel Movement 06/28/18 06/28/18 Narrative: GENERAL: Well-developed, well-nourished elderly male. SKIN: Warm and dry. HEAD: Atraumatic. Normocephalic. EYES: Pupils equal and round. No scleral icterus. Chronic left eye blindness. ENT: No nasal bleeding or discharge. Mucous membranes pink and moist. NECK: Trachea midline. No JVD. CARDIOVASCULAR: Regular rate and rhythm. RESPIRATORY: No accessory muscle use. Clear to auscultation. Breath sounds equal bilaterally. GASTROINTESTINAL: Abdomen soft, non-tender, nondistended. + Bowel sounds. MUSCULOSKELETAL: Extremities without clubbing or cyanosis. No obvious deformities. Left lower extremity edema. NEUROLOGICAL: Awake and alert. No obvious cranial nerve deficits. Motor grossly within normal limits. Five out of 5 muscle strength in the arms and legs. Normal speech. PSYCHIATRIC: Appropriate mood and affect; insight and judgment normal. Results - Labs CBC & Chem 7: 06/30/18 06:31 06/30/18 06:31 Laboratory Results - last 24 hr 06/29/18 06/29/18 06/29/18 14:21 14:21 14:21 WBC 7.9 RBC 2.77 L Hgb 8.6 L Hct 25.6 L MCV 92.4 MCH 31.1 MCHC 33.7 RDW 14.1 Plt Count 292 MPV 8.3 Neut % (Auto) 80.4 H Lymph % (Auto) 9.5 Taliaferro % (Auto) 8.3 H Eos % (Auto) 1.0 Baso % (Auto) 0.8 Neut # (Auto) 6.3 Lymph # (Auto) 0.7 L Taliaferro # (Auto) 0.7 Eos # (Auto) 0.1 Baso # (Auto) 0.1 WBC Differential . Differential Comment Auto diff final PT 10.8 INR 1.1 APTT 29.1 Sodium 133 L Potassium 5.0 Chloride 100 Carbon Dioxide 23.0 Anion Gap 10 BUN 55 H Creatinine 2.73 H Estimated GFR 22 L POC Glucose Random Glucose 217 H Calcium 8.5 Total Bilirubin 0.3 AST 11 L ALT 22 Alkaline Phosphatase 89 Troponin I B-Natriuretic Peptide Total Protein 7.1 Albumin 3.1 L Blood Type Antibody Screen MTS Gel Crossmatch 06/29/18 06/29/18 06/29/18 14:21 14:21 14:21 WBC RBC Hgb Hct MCV MCH MCHC RDW Plt Count MPV Neut % (Auto) Lymph % (Auto) Taliaferro % (Auto) Eos % (Auto) Baso % (Auto) Neut # (Auto) Lymph # (Auto) Taliaferro # (Auto) Eos # (Auto) Baso # (Auto) WBC Differential Differential Comment PT INR APTT Sodium Potassium Chloride Carbon Dioxide Anion Gap BUN Creatinine Estimated GFR POC Glucose Random Glucose Calcium Total Bilirubin AST ALT Alkaline Phosphatase Troponin I Less than 0.02 L B-Natriuretic Peptide 488 H Total Protein Albumin Blood Type O Positive Antibody Screen Negative MTS Gel Crossmatch 06/29/18 06/30/18 06/30/18 17:26 06:31 06:31 WBC 6.2 RBC 3.01 L Hgb 9.3 L Hct 26.9 L MCV 89.3 MCH 31.0 MCHC 34.7 RDW 14.6 Plt Count 241 MPV 8.0 Neut % (Auto) 79.3 H Lymph % (Auto) 10.9 Taliaferro % (Auto) 7.8 Eos % (Auto) 1.4 Baso % (Auto) 0.6 Neut # (Auto) 4.9 Lymph # (Auto) 0.7 L Tal[place]ferro # (Auto) 0.5 Eos # (Auto) 0.1 Baso # (Auto) 0.0 WBC Differential . Differential Comment Auto diff final PT INR APTT Sodium 135 L Potassium 4.5 Chloride 102 Carbon Dioxide 21.2 Anion Gap 12 BUN 53 H Creatinine 2.53 H Estimated GFR 24 L POC Glucose Random Glucose 215 H Calcium 8.5 Total Bilirubin 0.3 AST 12 L ALT 19 Alkaline Phosphatase 93 Troponin I B-Natriuretic Peptide Total Protein 6.5 D Albumin 2.8 L Blood Type Antibody Screen MTS Gel Crossmatch See Detail 06/30/18 07:22 WBC RBC Hgb Hct MCV MCH MCHC RDW Plt Count MPV Neut % (Auto) Lymph % (Auto) Taliaferro % (Auto) Eos % (Auto) Baso % (Auto) Neut # (Auto) Lymph # (Auto) Taliaferro # (Auto) Eos # (Auto) Baso # (Auto) WBC Differential Differential Comment PT INR APTT Sodium Potassium Chloride Carbon Dioxide Anion Gap BUN Creatinine Estimated GFR POC Glucose 205 H Random Glucose Calcium Total Bilirubin AST ALT Alkaline Phosphatase Troponin I B-Natriuretic Peptide Total Protein Albumin Blood Type Antibody Screen MTS Gel Crossmatch - Imaging Impressions Chest X-Ray 06/29/18 14:12 CONCLUSION: Left basilar atelectasis. Assessment and Plan - Plan Mr. Thacker is a 87 yo M with PMH CAD (s/p CABG), CHF, CKD, recent diverticulitis who presents due to symptoms of fatigue and shortness of breath. He states that he was advised by his [employer] Specialist's nurse to go to ED for blood transfusion and evaluation (due to outpatient Hgb 7.9). Anemia Impression: Hgb 8.6 today; 7.9 on recent outpatient labs. Per EMR, baseline of ~ 10 02/2018. Normal MCV. Associated with black stool/Hemoccult positive. No concern for active bleeding currently. Patient strongly associates current fatigue with anemia -GI consulted -Discussed extensively the potential improvement in fatigue with transfusion vs risks of worsening CHF and infection; patient elected for transfusion -s/p 1 unit PRBC's with Lasix, recheck H&H 9.3/26.9, will give an additional unit for goal hemoglobin of 10.0 or > Blood in stool Impression: Recent diverticulitis. Colonoscopy last year normal. No prior EGD. No abdominal pain reported -Continue Pantoprazole 40mg IV BID -Will monitor VS, CBC -GI consulted, pending recommendations. CAD/CHF-EF 63% 03/09/18 Impression: BNP in 400's on admission. Troponin wnl on admission; no EKG concerns -Will keep on telemetry -Will continue home Lasix 40mg daily -Seen and evaluated by Dr. Raymond who feels her anemia may be due to underlying chronic kidney disease, provided with Epogen 4000 units. Cardiology recommends hemoglobin at least 10 given underlying medical problems. -Currently on Nadolol, Losartan/Irbesartan, Atorvastatin, Nifedipine, cards added Clonidine -ASA held for GI bleed - LLE edema, patient reports usually RLE is the one that is chronically swollen , US LE to r/o DVT CKD Impression: Cr chronically ~2.5; sees Dr. Kent -Continue home Lasix 40mg daily -Creatinine with slight improvement DM Impression: patient does not take home Glipizide -Will check Accuchecks and give insulin if needed DVT PPX -SCD's for GI bleed Discussed Condition With: Discussed with patient and RN. Discharge Planning: Pending GI clearance for possible GI bleed.
[2018-06-30] MEDS ORDERED: Dextrose 50% in Water 50 ML Vial IV.PUSH PRN (12:30)
[2018-06-30] MEDS ORDERED: Sodium Chlor 0.9% Inj 250 ML IV.SIG SCH (13:00)
--- NOTE | 2018-06-30 15:30 | MB ---
cc: Addi Farrell MD DATE: 06/29/2018 REASON FOR GASTROINTESTINAL: Evaluation of anemia, rule out upper gastrointestinal bleeding source. HISTORY OF PRESENT ILLNESS: The patient is admitted at this time with fatigue, shortness of breath, symptomatic anemia. Hemoglobin as an outpatient was down to 7.8. About 3 weeks ago the patient did note some dark blackish stools. He did; however, take some Pepto-Bismol as well. The stool is lightened to brown after several days. He does have a history of anemia in the past. He has been evaluated by Dr. Beltran. He had a colonoscopy in July of last year with significant diverticular disease with narrowing of the colon at the sigmoid, descending junction. A full colonoscopy was completed; however. There was no active bleeding at that time. Actually the patient states he was recently treated for a lesser severe case of diverticulitis with lower abdominal pain by his PCP with Flagyl and Cipro and he states that helped the lower abdominal discomfort. He is currently moving his bowels at this time. He has received a transfusion. He got 1 unit of packed cells. His hemoglobin went from 8.6 to 9.3. He is getting another unit today. He has been seen by Cardiology as well, Dr. Alejandre. He has a history of CABG x5 vessels in 2006. He did have an NC in 2013. Cardiology felt that his shortness of breath was due to pulmonary hypertension and his anemia. Incidentally, the patient was noted to have heme-positive stools on admission at this time. He is feeling symptomatically better since his first transfusion. We were asked to evaluate him further to rule out upper GI bleeding sources. PAST MEDICAL HISTORY: Includes COPD, sleep apnea, uses CPAP; history of renal insufficiency, heart failure, previous NC, coronary artery bypass graft surgery. ALLERGIES: IODINE, LEVOFLOXACIN, POTASSIUM. MEDICATIONS: 1. Tylenol. 2. Albuterol. 3. Ventolin. 4. Pravastatin. 5. Proscar. 6. Lasix. 7. Procardia. 8. Zofran 9. Protonix. SOCIAL HISTORY: The patient denies tobacco, alcohol or any illicit drug use. FAMILY HISTORY: There is no history of liver disease. His mother did have colon cancer as well. REVIEW OF SYSTEMS: A 12-point review of systems as stated in the HPI. Otherwise, it was negative. He denies abdominal pain or vomiting. PHYSICAL EXAMINATION: GENERAL: Pleasant, elderly male, alert and oriented x3, no acute distress. VITAL SIGNS: Stable. He is normotensive, afebrile. SKIN: Warm and dry. HEENT: Normocephalic. Sclerae are anicteric. Oral mucosa moist. NECK: Supple. No JVD masses or nodes. CARDIAC: S1, S2 normal. CHEST: Clear. ABDOMEN: Soft, bowel sounds present. No mass or organomegaly. No rebound tenderness. EXTREMITIES: Without clubbing, cyanosis or edema. NEUROLOGIC: No focal deficits noted. LABORATORY DATA: Liver enzymes were normal. Electrolytes are stable. Potassium was 4.5. Sodium was 135. His creatinine is noted to be 2.7 to 2.53. Albumin is 3.1. IMPRESSION: An 87-year-old male who presents with symptomatic anemia, heme positive stools, history of recent diverticulitis treated effectively with antibiotics. History of melena a few weeks ago, although there is a question of whether this was secondary due to use of Pepto-Bismol recently as well. PLAN: Would continue PPI therapy. Follow hemoglobin and hematocrits post-transfusion. We will proceed with upper endoscopy to rule out any upper GI bleeding source. Procedure, risks and benefits were discussed including the risks of bleeding, sepsis, perforation and risks of anesthesia. Further recommendations pending the evaluation. Upper GI sources of bleeding could include ulcer disease, gastritis, esophagitis and even angiodysplastic disease. Thank you kindly for this consult. MD LYNN Devlin/ursula , 02:50 PM , 03:01 PM
--- NOTE | 2018-06-30 16:45 | US ---
EXAM DATE: 06/30/2018 4:42 PM EDT AGE/SEX: 87 years / Male INDICATIONS: Left leg swelling. CLINICAL DATA: This is the patient's initial encounter. Patient reports that signs and symptoms have been present for 4 - 6 days and indicates a pain score of 3/10. MEDICAL/SURGICAL HISTORY: . Anxiety. BPH. Coronary artery disease. Congestive heart failure. Di verticulitis. Hyperlipidemia. Diabetes. Sleep apnea. CABG. Cholecystectomy. COMPARISON: POI, US LEG VENOUS DOPPLER, RIGHT, 12/17/2017. . TECHNIQUE: Venous ultrasound of both lower extremities was performed from the inguinal ligament to t he proximal calf. Real-time, color Doppler and spectral tracing, compression and augmentation techni ques were used. FINDINGS: Normal compression of the deep venous system from the inguinal region to the proximal calf . No echogenic clot is seen. Normal response of the venous system to augmentation and respiration. Th ere is a Harris's cyst in the popliteal fossa measuring 6.3 x 5.6 x 3.2 cm. CONCLUSION: 1. No evidence of DVT. 2. Harris's cyst. Electronically signed by: Dalton Esquivel MD 06/30/2018 4:44 PM EDT
[2018-06-30] MEDS ORDERED: ALPRAZolam 0.5 MG Tablet PO PRN (17:37)
[2018-06-30] MEDS: Insulin NovoLOG Aspart Correctional Sugar Inj SQ SCH ×2 (17:45→20:56)
[2018-06-30] MEDS: Senna/Docusate Sodium 8.6/50 MG Tablet PO SCH (20:56)
[2018-06-30] MEDS: IRBESARTAN 75 MG PO SCH (20:56)
[2018-07-01] MEDS: Pantoprazole Inj 40 MG Vial IV.PUSH SCH (05:15)
[2018-07-01] MEDS: Dextrose 5%/NaCl 0.45% Inj 1,000 ML IV.SIG SCH ×2 (05:16→13:58)
[2018-07-01] MEDS ORDERED: Chlorhexidine Gluconate 2% 1 Pack (2 Cloths) TOPICAL ONE ×2 (06:29→06:45)
[2018-07-01] MEDS ORDERED: Metoprolol Tartrate 25 MG Tablet PO ONE (06:45)
[2018-07-01] MEDS ORDERED: Sodium Chlor 0.9% Inj 500 ML IV.SIG SCH (07:00)
[2018-07-01] MEDS: Furosemide 40 MG Tablet PO SCH ×2 (07:31→09:41)
[2018-07-01] MEDS: IRBESARTAN 75 MG PO SCH ×2 (07:32→09:41)
[2018-07-01] MEDS: Nadolol 40 MG Tablet PO SCH ×2 (07:32→09:41)
--- NOTE | 2018-07-01 08:20 | P.PNCA ---
Subjective Interval history: No major complaints. Upper endoscopy this AM two polyps removed from stomach. HgB better after PRBC's Physical Exam Vital signs: Vital Signs 06/30/18 10:13 06/30/18 12:00 06/30/18 14:40 Temperature 96.7 F L 97.8 F Pulse Rate 61 62 Respiratory Rate 17 17 Blood Pressure 161/73 H 154/58 H Pulse Oximetry 97 99 06/30/18 14:41 06/30/18 15:51 06/30/18 15:52 Temperature 97.8 F Pulse Rate 61 60 Respiratory Rate 17 18 Blood Pressure 153/70 H Pulse Oximetry 99 96 06/30/18 16:00 06/30/18 20:00 07/01/18 00:00 Temperature 96.0 F L 97.2 F L 97.0 F L Pulse Rate 59 L 64 47 L Respiratory Rate 17 16 16 Blood Pressure 168/70 H 168/74 H 173/77 H Pulse Oximetry 98 98 99 07/01/18 04:00 Temperature 97.6 F Pulse Rate 62 Respiratory Rate 16 Blood Pressure 175/82 H Pulse Oximetry 98 Intake & Output 06/30/18 07/01/18 07/01/18 18:59 06:59 18:59 Intake Total 1150 / 1150 450 / 450 0 / 0 Output Total 400 / 400 Balance 750 / 750 450 / 450 0 / 0 Weight 76.4 kg Intake: IV 50 / 50 450 / 450 NS Inj 250 ML @ 15 mls/hr IV. 50 / 50 250 / 250 SIG ONCE ANGLE Rx#:[id number] Oral 1100 / 1100 0 / 0 Intake (Blood Product) Amt 0 / 0 Rbc As-3 Leukoreduced Unit 0 / 0 [id number] Output: Urine 400 / 400 Other: # Voids 4 2 Date of Last Bowel Movement 06/30/18 # Bowel Movements 1 - Constitutional no acute distress - Routine Respiratory Exam Present: CTA bilaterally - Routine Cardiovascular Exam Present: RRR, S1, S2 - Routine Extremities Exam Comments: Trace edema at ankles. - Routine Psychiatric Exam Present: normal affect Assessment and Plan - Assessment (1) Dyspnea on exertion Code(s): R06.09 - Other forms of dyspnea Status: Acute (2) Chronic diastolic (congestive) heart failure Code(s): I50.32 - Chronic diastolic (congestive) heart failure Status: Acute (3) CAD (coronary artery disease) of artery bypass graft Code(s): I25.810 - Atherosclerosis of coronary artery bypass graft(s) without angina pectoris Status: Acute (4) Chronic kidney disease, stage IV (severe) Code(s): N18.4 - Chronic kidney disease, stage 4 (severe) Status: Acute (5) Anemia Code(s): D64.9 - Anemia, unspecified Status: Acute (6) Hypertensive cardiovascular disease Code(s): I11.9 - Hypertensive heart disease without heart failure Status: Acute (7) CKD (chronic kidney disease) Code(s): N18.9 - Chronic kidney disease, unspecified Status: Acute - Plan Doing well. Feels better with improved Hgb less SOB. CV stable for ddischarge home from cardiac standpoint. Continue all prior meds as well as clonidine at home. f/u with me in 1-2 weeks. Discussed with patient and medical staff coordinator. (5) Anemia Qualifiers: Anemia type: other cause Other causes of anemia: other cause, not classified Qualified Code(s): D64.89 - Other specified anemias (7) CKD (chronic kidney disease) Qualifiers: Chronic kidney disease stage: stage 4 (severe) Qualified Code(s): N18.4 - Chronic kidney disease, stage 4 (severe)
--- NOTE | 2018-07-01 08:59 | GIPROC ---
[facility] [address] [facility]. [facility], [id number] EGD PROCEDURE REPORT EXAM DATE: 07/01/2018 PATIENT NAME: Boni Thacker MR #: [id number] BIRTHDATE: 1930 ATTENDING: Sean Hayward MD ORDER #: [id number] GENERAL EDUCATION INSTRUCTOR: Anastasiia Colunga and Cici Lanza STATUS: inpatient INDICATIONS: The patient is a 87 yr old male here for an EGD due to anemia and occult blood positive PROCEDURE PERFORMED: EGD w/ snare technique MEDICATIONS: None and Per Anesthesia. TOPICAL ANESTHETIC: none CONSENT: The patient understands the risks and benefits of the procedure and understands that these risks include, but are not limited to: sedation, allergic reaction, infection, perforation and/or bleeding. Alternative means of evaluation and treatment include, among others: physical exam, x-rays, and/or surgical intervention. The patient elects to proceed with this endoscopic procedure. medical equipment was checked for proper function. Hand hygiene and appropriate measures for infection prevention was taken. After the risks, benefits and alternatives of the procedure were thoroughly explained, Informed consent was verified, confirmed and timeout was successfully executed by the treatment team. The patient was anesthetized with topical anesthesia and the Pentax [id number] endoscope was introduced through the mouth and advanced to the third portion of the duodenum. Retroflexion was performed and was normal The gastroscope was then slowly withdrawn and removed. ESOPHAGUS: The z-line was located 42cm from the incisors. The z-line appeared normal. STOMACH: Two ulcerated sessile polyps ranging between 3-7mm in size with friable surfaces were found in the gastric body and gastric antrum. A polypectomy was performed with snare cautery. The resection was complete and the polyp tissue was completely retrieved. DUODENUM: The duodenal mucosa appeared normal in the entire duodenum. ADVERSE EVENTS: There were no complications. IMPRESSIONS: 1. The z-line was located 42cm from the incisors 2. Two sessile polyps ranging between 3-7mm in size were found in the gastric body and gastric antrum; polypectomy was performed 3. Normal duodenal mucosa in the entire duodenum 4. Retroflexion was performed and was normal RECOMMENDATIONS: 1. Await biopsy results. Biopsy results will not be ready for 7-10 days. If you don't hear from us in two weeks, call our office for biopsy results. 2. Carafate 1 gm po qid ac PATIENT CONDITION: stable DISPOSITION: Inpatient REPEAT EXAM: Sean Hayward MD eSigned: Sean Hayward MD 07/01/2018 8:59 AM cc: PATIENT NAME: Boni Thacker MR#: [id number]
[2018-07-01] MEDS: Finasteride 5 MG Tablet PO SCH (09:48)
[2018-07-01] MEDS: Insulin NovoLOG Aspart Correctional Sugar Inj SQ SCH ×2 (09:48→13:56)
[2018-07-01] MEDS: Senna/Docusate Sodium 8.6/50 MG Tablet PO SCH (09:48)
[2018-07-01 10:08] LABS: Hematocrit 29.7 % (39.0-51.0); Hemoglobin 10.6 gm/dL (13.0-17.0)
[2018-07-01 10:39] LABS: Calcium 8.5 mg/dL (8.5-10.1); Carbon Dioxide 24.1 meq/L (21.0-32.0); Potassium 4.4 meq/L (3.5-5.1)
[2018-07-01] MEDS ORDERED: Sucralfate 1 GM Tablet PO SCH (12:00)
[2018-07-01 14:22] VITALS: BP 165/75; PULSE 61; RESP 17; TEMP 97.4; O2SAT 96
--- NOTE | 2018-07-01 14:43 | P.DS ---
Date of admission: 06/29/18 17:14 Primary care physician: Carmen May MD Attending physician on discharge: Peter Roland Anticipated date of discharge: 07/01/18 Brief History from admission: Mr. Thacker is a 87 yo M with PMH CAD (s/p CABG), CHF, CKD, recent diverticulitis who presents due to symptoms of fatigue and shortness of breath. He states that he was advised by his Sales Advisor's nurse to go to ED for blood transfusion and evaluation (due to outpatient Hgb 7.9). patient states that he was recently treated for diverticulitis with Flagyl [ last admitted 06/14 per EMR]. He reports that he has been weak around this time and also has had black stools several weeks ago which has since improved. He has been having ~daily BM and had diarrhea today which was not black. Patient reports increased weakness; he gets short of breath when walking 135 steps. Patient feels that these symptoms have been present for about a month and that they are associated with anemia. Patient also reports occasional chest discomfort over the past several months which is not clearly associated with exertion. He states that nitroglycerin helps when he gets; he has used this only 5 times over the past 6 months. Patient does not report chest pain today. He states he was cleared by Dr. Raymond to play golf from a cardiac standpoint and has an upcoming appointment this week. He feels that his weakness is preventing him from pursing activities and therapy at home.. patient also reports some shortness of breath. He denies recent increase in leg swelling. Patient has not had recent changes in urination. He has upcoming appointment with Dr. Kent next week. Interval: Patient with mild HTN in ED. Hgb 8.6. Cr 2.73 which is at baseline. BNP 488. Hemoccult positive. Patient given Protonix; decision made to admit patient a and have GI consultation PMH- CAD (s/p CABG)- sees Dr. Raymond, CHF, CKD stage 4- sees Libertad Almodovar eye blindness- shunt, CPAP. DM, no recent medications PSH- Cholecystectomy, CABG. Colonoscopy last year with Dr. Beltran SH- lives alone FH- mom with colon cancer DS: Summary Hospital Course: 55-year-old male with past medical history significant for CAD, CHF, CKD, recent diverticulitis, status post CABG who presented to the emergency department on 06/29 with complaints of increasing fatigue and shortness of breath. Patient had labs as recommended by his managed care director which showed anemia with a hemoglobin of 7.9 and patient was advised to come to the emergency department. Hemoccult was negative in the ER and there was concerns for GI bleed and gastroenterology was consulted. Patient underwent transfusion of 2 units of PRBCs with improvement in hemoglobin and hematocrit. Seen and evaluated by his managed care director during his stay. Underwent colonoscopy today, found to have 2 polyps which were removed with biopsies taken. GI recommended following up with biopsies which would take 7-10 days, continuing Carafate p.o. 4 times daily before meals and follow-up as outpatient in 2 weeks with GI. Patient is seen and examined this morning in no acute distress, reports that he is now moved his bowels. Denies any fevers, chills, nausea, vomiting, cough, shortness of breath or chest pain. Is requesting to go home. - Time Spent with Patient Total time spent providing and/or coordinating discharge services: Less than 30 minutes - Quality: VTE Deep Vein Thrombosis/Pulmonary Embolism Present on Admission: No Exam Vital signs: Vital Signs 06/30/18 14:40 06/30/18 14:41 06/30/18 15:51 Temperature 97.8 F 97.8 F Pulse Rate 62 61 60 Respiratory Rate 17 17 18 Blood Pressure 154/58 H 153/70 H Pulse Oximetry 99 06/30/18 15:52 06/30/18 16:00 06/30/18 20:00 Temperature 96.0 F L 97.2 F L Pulse Rate 59 L 64 Respiratory Rate 17 16 Blood Pressure 168/70 H 168/74 H Pulse Oximetry 96 98 98 07/01/18 00:00 07/01/18 04:00 07/01/18 08:00 Temperature 97.0 F L 97.6 F 97.3 F L Pulse Rate 47 L 62 67 Respiratory Rate 16 16 18 Blood Pressure 173/77 H 175/82 H 199/87 H Pulse Oximetry 99 98 100 07/01/18 09:06 07/01/18 09:55 07/01/18 12:00 Temperature 97.0 F L 97.4 F L Pulse Rate 58 L 61 Respiratory Rate 16 17 Blood Pressure 162/69 H 165/75 H Pulse Oximetry 97 97 96 Intake & Output 06/30/18 07/01/18 07/01/18 18:59 06:59 18:59 Intake Total 1150 / 1150 450 / 450 0 / 0 Output Total 400 / 400 Balance 750 / 750 450 / 450 0 / 0 Weight 76.4 kg Intake: IV 50 / 50 450 / 450 NS Inj 250 ML @ 15 mls/hr IV. 50 / 50 250 / 250 SIG ONCE ANGLE Rx#:[id number] Oral 1100 / 1100 0 / 0 Intake (Blood Product) Amt 0 / 0 Rbc As-3 Leukoreduced Unit 0 / 0 [id number] Output: Urine 400 / 400 Other: # Voids 4 2 Date of Last Bowel Movement 06/30/18 # Bowel Movements 1 Narrative: GENERAL: Well-developed, well-nourished elderly male. SKIN: Warm and dry. HEAD: Atraumatic. Normocephalic. EYES: Pupils equal and round. No scleral icterus. Chronic left eye blindness. ENT: No nasal bleeding or discharge. Mucous membranes pink and moist. NECK: Trachea midline. No JVD. CARDIOVASCULAR: Regular rate and rhythm. RESPIRATORY: No accessory muscle use. Clear to auscultation. Breath sounds equal bilaterally. GASTROINTESTINAL: Abdomen soft, non-tender, nondistended. + Bowel sounds. MUSCULOSKELETAL: Extremities without clubbing or cyanosis. No obvious deformities. Bilateral lower extremity trace edema. NEUROLOGICAL: Awake and alert. No obvious cranial nerve deficits. Motor grossly within normal limits. Five out of 5 muscle strength in the arms and legs. Normal speech. PSYCHIATRIC: Appropriate mood and affect; insight and judgment normal. Results Procedures completed during hospitalization: EGD with snare technique 07/01/18 Pending studies at discharge: Pending at discharge 07/01/18 10:58 Surgical [PTH] Routine Labs on day of discharge: Labs from last 24 hours 07/01/18 07/01/18 07/01/18 09:39 09:39 09:37 Hgb 10.6 L Hct 29.7 L Sodium 134 L Potassium 4.4 Chloride 99 Carbon Dioxide 24.1 Anion Gap 11 BUN 54 H Creatinine 2.51 H Estimated GFR 25 L POC Glucose 175 H Random Glucose 162 H Calcium 8.5 MTS Gel Crossmatch 07/01/18 07/01/18 06/30/18 07:30 02:45 20:54 Hgb Hct Sodium Potassium Chloride Carbon Dioxide Anion Gap BUN Creatinine Estimated GFR POC Glucose 199 H 180 H 188 H Random Glucose Calcium MTS Gel Crossmatch 06/30/18 06/30/18 06/30/18 20:15 17:30 13:44 Hgb 11.0 L Hct 32.0 L Sodium Potassium Chloride Carbon Dioxide Anion Gap BUN Creatinine Estimated GFR POC Glucose 225 H Random Glucose Calcium MTS Gel Crossmatch See Detail 06/29/18 17:26 Hgb Hct Sodium Potassium Chloride Carbon Dioxide Anion Gap BUN Creatinine Estimated GFR POC Glucose Random Glucose Calcium MTS Gel Crossmatch See Detail - Impressions ITS Impressions Chest X-Ray 06/29/18 14:12 CONCLUSION: Left basilar atelectasis. Venous Doppler Study 06/30/18 00:00 CONCLUSION: 1. No evidence of DVT. 2. Harris's cyst. Discharge Plan - Discharge Disposition Patient Disposition: /Home Health Service - Discharge Condition Condition: Fair - Discharge Order Discharge Orders: Discharge Order (Routine); Ordered 07/01/18 Ordered By: Jensen Pittman - Physicians Team Primary Care Provider: Carmen May Attending Provider: Peter Roland Other Providers: Ariel Raymond MD ; Addi Farrell MD
== END 2018-07-01 16:37 | disposition home health service (06) ==
LOC: NEDA 12:03 → NEPE 12:03 → N07 18:11
PROVIDERS: ADMIT Hospitalist; ATTEND Hospitalist